=== PATIENT | female | born 1930 | race Caucasian/White ===

== ENCOUNTER 2017-11-29 09:54 | Inpatient (IN) | payer MEDICARE, BC, OTHER ==
[2017-11-29] MEDS ORDERED: Acetaminophen 500 MG TAB ONE (10:27)
[2017-11-29 10:33] LABS: #Eosinphils 0.1 thou/uL (0.0-0.7); #Lymphocytes 0.7 thou/uL (1.20-3.40); #Monocytes 0.4 thou/uL (0.11-0.59); #Neutrophils 12.7 thou/uL (1.40-6.50); %Basophils 0.3 % (0.0-1.0); %Eosinophils 0.9 % (0.0-10.0); %Lymphocytes 4.9 % (21.0-51.0); %Monocytes 2.6 % (0.0-10.0); %Neutrophils 91.4 % (42.0-75.0); Mean Corpuscular HGB CONC 33.6 g/dL (32.0-36.0); Mean Corpuscular Hemoglobin 29.8 pg (27.0-31.0); Mean Corpuscular Volume 88.7 fl (81.0-99.0); Mean Platelet Volume 7.1 fL (7.4-10.4); Platelet Count 341 thou/uL (130-400); RBC Distribution Width 12.5 % (11.5-14.5); Red Blood Cell (RBC) Count 4.02 mill/uL (4.20-5.40); White Blood Cell (WBC) Count 13.9 thou/uL (4.8-10.8)
[2017-11-29 10:53] LABS: ALT (SGPT) 25 U/L (8-55); AST (SGOT) 35 U/L (5-34); Albumin 3.1 g/dL (3.4-4.8); Alkaline Phosphatase 183 U/L (40-150); Anion Gap 11 mmol/L (10-20); BUN (Urea Nitrogen) 31 mg/dL (9.8-20.1); Bilirubin, Total 0.6 mg/dL (0.2-1.2); Calc. Creatinine Clearance 0 mL/min (70-130); Carbon Dioxide 18 mmol/L (23-31); Chloride 108 mmol/L (98-107); Estimated GFR-MDRD 62; Glucose 97 mg/dL (83-110); Lipase 24 U/L (8-78); Potassium 3.8 mmol/L (3.5-5.1); Protein, Total 8.1 g/dL (6.0-8.3); Sodium 133 mmol/L (136-145)
[2017-11-29 10:58] LABS: CKMB 0.8 ng/mL (0-6.6); Troponin I Less than 0.010 ng/mL (< 0.028)
--- NOTE | 2017-11-29 11:11 | RAD ---
SINGLE VIEW OF THE CHEST: COMPARISON: 06/03/17. HISTORY: Fever with nausea, vomiting, and sepsis. FINDINGS: A single view of the chest shows a cardiomediastinal silhouette which is upper limits of normal in si ze. There are multifocal infiltrates in the lungs which represent multifocal pneumonia. No pleural effusion is seen. IMPRESSION: Multifocal pneumonia. POS: [facility]
[2017-11-29] MEDS: Sodium Chloride 0.45% 1,000 ML IV SCH (13:17)
[2017-11-29 13:20] LABS: Troponin I Less than 0.010 ng/mL (< 0.028)
--- NOTE | 2017-11-29 13:24 | CON ---
DATE OF CONSULTATION: 11/29/2017 HISTORY: This is an 87-year-old female well known to us who called the office this morning stating s he was nauseated, vomiting since last night. She took some tramadol last night before going to bed. She then had a fever up to 103 with chills and sweats. Sputum was relatively clear. Chest x-ray sh ows an impressive right upper lung pneumonia. She has otherwise got chronic scarring in both lungs, a little bit more pronounced in the left base. The patient is a lifelong nonsmoker. Denies any difficulty breathing, chest pain. PAST HISTORY: Previous history is well outlined extensively in the previous medical records. Pertinent for past medical history of Sjogren syndrome, history of hypothyroidism, history of unknown autoimmune disease, possibly lupus, peptic ulcer disease, gastric polyp. ALLERGIES: Multiple medications including MORPHINE, SULFA, and PENICILLIN. CODEINE, HYDROCODONE. PAST SURGICAL HISTORY: None recently. TOBACCO: None. ALCOHOL: None. REVIEW OF SYSTEMS: Otherwise, 10-point negative. PHYSICAL EXAMINATION: VITAL SIGNS: Sats are 90%. Pulse is 80, blood pressure 110/80, respiration rate 18. CHEST: Surprisingly minimal crackles, without any wheezing. CARDIAC: Normal S1, S2, no gallops. ABDOMEN: Soft. NEURO: She is awake, alert and responsive. EXTREMITIES: Appears to be dry. LABORATORY: Her sodium is 133. Electrolytes are normal. BUN is 31. X-ray showed right upper lobe pneumonia. Albumin is 3.1. White count 13,000, H&H 12 and 36. Segs 9 4. IMPRESSION: 1. Right upper lobe pneumonia, recurrent, possibly aspiration. 2. Baseline underlying chronic fibrosis, interstitial lung disease. 3. History of unknown autoimmune disease, possibly lupus. 4. Sjogren syndrome. 5. Osteoporosis. PLAN: Continue home medication, particularly the Synthroid, aspirin. Otherwise, broad-spectrum ant ibiotics, Levaquin, Maxipime. Await sputum cultures. Hydration. Hopefully, she can be switched ove r to oral antibiotics in the next 24-48 hours. I will follow. Consultation note, 70 minutes of which 50% spent in direct patient care.
[2017-11-29] MEDS: Cefepime 1 GM, Admixture Fee 1 EACH in Sterile Water 10 ML SLOW IVP SCH (14:11)
[2017-11-29 14:21] LABS: Lactic Acid 3.1 mmol/L (0.5-2.2)
[2017-11-29] MEDS ORDERED: Prevnar 13-Val Conj/PF 0.5 ML SYRINGE IM ONE (15:30)
[2017-11-29] MEDS ORDERED: Ondansetron HCl/PF 4 MG/2 ML Vial IVP PRN (15:34)
[2017-11-29] MEDS ORDERED: Guaifenesin DM 100-10/5 ML UDCUP PO PRN (15:34)
--- NOTE | 2017-11-29 18:23 | HP ---
REASON FOR ADMISSION: Sepsis and pneumonia. HISTORY OF PRESENT ILLNESS: The patient gives history of waking up around 7:30 with dry coughing spells. She was also feeling cold, had chills and fever. checked her temperature, it was 103. She threw up one time and was continuously retching. Finally, they called Dr. Palacios's office and was instructed to come to the emergency room. The patient also mentions that she has had a history of esophageal hernia/stricture, hiatal hernia and Sjogren syndrome and she usually needs to be continuously drinking water while eating solid food. No complaints of chest pain, palpitation, PND or orthopnea. She normally ambulates inside the house and recently has had torn muscles in her hips and has been using a cane to ambulate. PAST MEDICAL AND SURGICAL HISTORY: History of Sjogren syndrome, history of hiatal hernia, esophageal hernia/stricture, peptic ulcer disease, hypothyroidism , mitral valve prolapse, hysterectomy, oophorectomy, breast biopsy x2, appendectomy, cataract surgery, recent torn piriformis muscle on the right hip in October per patient. She has also torn another muscle in the left hip after that and has been using a cane to ambulate. CURRENT MEDICATIONS: Evista 60 mg daily, Synthroid 100 mcg daily, aspirin 81 mg daily, Protonix 40 mg daily, Zantac 150 mg daily. ALLERGIES: Patient is allergic to multiple medications including TYLENOL, CODEINE, NEXIUM, HYDROCODONE, INDOMETHACIN, IODINE, KETOROLAC, LACTATE, MORPHINE , MACRODANTIN, PENICILLIN, PHENAZOPYRIDINE, PROPOXYPHENE, SULFA, TETRACYCLINE, VERAPAMIL. PERSONAL HISTORY: Does not abuse alcohol or drugs. No history of smoking. She lives with her and has five children. FAMILY HISTORY: Mom in her 90s. She had dementia. Father in his 50s , he was electrocuted and had a bad heart per patient. REVIEW OF SYSTEMS: The following complete review of systems was negative, unless otherwise mentioned in the HPI or below: Constitutional: Weight loss or gain, ability to conduct usual activities. Skin: Rash, itching. Eyes: Double vision, pain. ENT/Mouth: Nose bleeding, neck stiffness, pain, tenderness. Cardiovascular: Palpitations, dyspnea on exertion, orthopnea. Respiratory: Shortness of breath, wheezing, cough, hemoptysis, fever or night sweats. Gastrointestinal: Poor appetite, abdominal pain, heartburn, nausea, vomiting, constipation, or diarrhea. Genitourinary: Urgency, frequency, dysuria, nocturia. Musculoskeletal: Pain, swelling. Neurologic/Psychiatric: Anxiety, depression. Allergy/Immunologic: Skin rash, bleeding tendency. PHYSICAL EXAMINATION: GENERAL: The patient is an 87-year-old female who is currently not in any acute distress. VITAL SIGNS: Blood pressure 87/48 on arrival, had 2 liters of bolus done in the ER, pulse 108 per minute, respiratory rate 20 per minute, temperature 102.7 degrees Fahrenheit on arrival 96% on room air saturations. NECK: Supple, no elevated JVD. HEENT: Extraocular muscles intact. Pupils reacting to light. Oral cavity mucous membranes are dry. No exudates or congestion. CARDIOVASCULAR: S1, S2 heard. Regular rhythm. RESPIRATORY: Air entry 1+ bilateral, rales plus bilateral. ABDOMEN: Soft, bowel sounds heard. No tenderness, rigidity or guarding. EXTREMITIES: No peripheral edema or calf tenderness. VASCULAR SYSTEM: Peripheral pulses 1+ bilateral, no ischemic ulcerations or gangrene. CENTRAL NERVOUS SYSTEM: No gross focal deficits seen. Patient is alert, awake , and fairly oriented. PSYCHIATRIC: The patient's mood is euthymic. No hallucinations or delusions. LABORATORY AND X-RAY FINDINGS: Chest x-ray done shows multifocal pneumonia. White count of 13, H and H 12 and 35, platelet count 341 with 91% neutrophils, MCV is 88. Sodium 133, serum bicarbonate 18, BUN 31, creatinine 0.8, glucose is 97. Lactic acid 2.4, AST 35, alkaline phosphatase 183. Troponin x2 negative. Albumin is 3.1. EKG done shows sinus tachycardia at 102 beats per minute. There is Q-wave seen in V1 and V2. There is also low voltage. CLINICAL IMPRESSION AND PLAN: The patient will be admitted to telemetry for sepsis, pneumonia with likely aspiration. The patient has known history of hiatal hernia with Sjogren syndrome and has esophageal motility issues. She sees Dr. Do for the same. She has trouble eating solid food and has to be continuously drinking liquids when she eats. She has been placed on Levaquin and cefepime by Dr. Palacios and we will continue the same. She will also be on DuoNebs q.6 hourly. She will be on normal saline 1/2 NS at 75 mL per hour. We will continue her on aspirin, Synthroid, Evista as before. Patient also is on steroids per Dr. Palacios. We will continue to closely monitor her on telemetry and likely will be transfer to medical floor if she remains stable. CODE STATUS: FULL. This was discussed with the patient. YOBANY
[2017-11-29] MEDS ORDERED: Cefepime 1 GM in Sodium Chloride 0.9% 100 ML IVPB SCH (21:00)
[2017-11-29] MEDS: Docusate 100 MG CAP PO SCH (21:31)
[2017-11-29] MEDS: Famotidine 20 MG TAB PO SCH (23:28)
[2017-11-30] MEDS: Cefepime 1 GM, Admixture Fee 1 EACH in Sterile Water 10 ML SLOW IVP SCH ×2 (02:16→15:00)
--- NOTE | 2017-11-30 05:41 | PRG ---
DATE OF SERVICE: 11/30/2017 This morning she is awake, responsive. She says she is feeling better, but still nauseated yesterday . The question whether it was the tramadol. She is not coughing any sputum. PHYSICAL EXAMINATION: VITAL SIGNS: Sats are 95% on 2 liters, temperature 98, blood pressure is 98/54. CHEST: Chest reveals decreased breath sounds, no wheezing. CARDIAC: Normal S1, S2, no gallops. ABDOMEN: Soft, no masses. IMPRESSION: 1. Recurrent bilateral bronchopneumonia, slightly more pronounced in the right lung. 2. Baseline underlying Sjogren's disease with end-stage lung disease. PLAN: Continue steroids, neb treatments, antibiotics. Probably deescalate antibiotics in the next 2 4-48 hours.
[2017-11-30 05:47] LABS: Band 38 % (5-11); Hemoglobin 10.1 g/dL (12.0-16.0); Lymphocytes 5 % (21-51); MDiff Complete? YES; Mean Corpuscular HGB CONC 32.8 g/dL (32.0-36.0); Mean Corpuscular Hemoglobin 29.4 pg (27.0-31.0); Mean Corpuscular Volume 89.7 fl (81.0-99.0); Mean Platelet Volume 7.2 fL (7.4-10.4); Metamyelocyte 1 % (0-0); Neutrophil 56 % (42-75); PLT Morphology Comment Appears Adequate; Platelet Count 277 thou/uL (130-400); RBC Distribution Width 12.6 % (11.5-14.5); Red Blood Cell (RBC) Count 3.44 mill/uL (4.20-5.40); White Blood Cell (WBC) Count 29.3 thou/uL (4.8-10.8)
[2017-11-30] MEDS: Sodium Chloride 0.45% 1,000 ML IV SCH ×3 (05:48→23:46)
[2017-11-30 05:53] LABS: Anion Gap 13 mmol/L (10-20); BUN (Urea Nitrogen) 28 mg/dL (9.8-20.1); Calc. Creatinine Clearance 34 mL/min (70-130); Calcium 8.3 mg/dL (7.8-10.44); Carbon Dioxide 15 mmol/L (23-31); Chloride 108 mmol/L (98-107); Estimated GFR-MDRD 59; Glucose 165 mg/dL (83-110); Potassium 3.8 mmol/L (3.5-5.1); Sodium 132 mmol/L (136-145)
[2017-11-30] MEDS ORDERED: Levothyroxine Sodium 112 MCG TAB PO SCH (06:00)
[2017-11-30] MEDS: Enoxaparin Sodium 30 MG/0.3 ML SYRINGE SC SCH (08:29)
[2017-11-30] MEDS: Docusate 100 MG CAP PO SCH ×2 (08:29→19:57)
[2017-11-30] MEDS ORDERED: Levothyroxine Sodium 100 MCG TAB PO SCH (09:00)
--- NOTE | 2017-11-30 10:46 | PDOC.PN ---
- Subjective Encounter Start Date: 11/30/17 Encounter Start Time: 08:50 Subjective: breathing better, no chest pain -: no fever - Objective Resuscitation Status: Resuscitation Status FULL:Full Resuscitation MAR Reviewed: Yes Vital Signs & Weight: Vital Signs (12 hours) Temp Pulse Resp BP Pulse Ox 11/30/17 08:00 98.5 F 109 H 16 11/30/17 07:19 81 16 97 11/30/17 04:00 98.1 F 98 18 98/54 L 94 L 11/30/17 00:35 78 16 11/30/17 00:00 97.8 F 73 18 103/57 L 93 L Weight Admit Weight 106 lb Weight 105 lb I&O: 11/29/17 11/30/17 12/01/17 06:59 06:59 06:59 Intake Total 1965 Output Total 1800 Balance 165 Result Diagrams: 11/30/17 04:36 11/30/17 04:36 Phys Exam - Physical Examination HEENT: PERRLA, moist MMs Neck: no JVD, supple Respiratory: no wheezing, no rales rhonchi+ Cardiovascular: RRR, no significant murmur Gastrointestinal: soft, non-tender, positive bowel sounds Musculoskeletal: no edema, pulses present Neurological: non-focal, moves all 4 limbs Psychiatric: normal affect, A&O x 3 Dx/Plan (1) Sepsis Code(s): A41.9 - SEPSIS, UNSPECIFIED ORGANISM Status: Acute Qualifiers: Sepsis type: sepsis due to unspecified organism Qualified Code(s): A41.9 - Sepsis, unspecified organism (2) PNA (pneumonia) Code(s): J18.9 - PNEUMONIA, UNSPECIFIED ORGANISM Status: Acute Qualifiers: Pneumonia type: due to unspecified organism Laterality: bilateral (3) HTN (hypertension) Code(s): I10 - ESSENTIAL (PRIMARY) HYPERTENSION Status: Chronic Qualifiers: Hypertension type: essential hypertension Qualified Code(s): I10 - Essential (primary) hypertension (4) H/O hiatal hernia Code(s): Z87.19 - PERSONAL HISTORY OF OTHER DISEASES OF THE DIGESTIVE SYSTEM Status: Chronic (5) Hypothyroidism Code(s): E03.9 - HYPOTHYROIDISM, UNSPECIFIED Status: Chronic Qualifiers: Hypothyroidism type: unspecified Qualified Code(s): E03.9 - Hypothyroidism , unspecified - Plan has 39% bands on cbc, clinically appears stable -: is on levaquin and cefepime -: iv steroids and nebs -: gentle iv hydration with 1/2 ns -: await full culture results, prelim blood is -ve * . Review of Systems - Medications/Allergies Allergies/Adverse Reactions: Allergies Allergy/AdvReac Type Severity Reaction Status Date / Time acetaminophen [From Vicodin] Allergy Verified 11/30/17 08:25 amoxicillin [From Larotid] Allergy Verified 11/30/17 08:25 aspirin [From Percodan] Allergy Verified 11/30/17 08:25 codeine Allergy Verified 01/20/15 13:15 esomeprazole [From Nexium] Allergy Verified 11/30/17 08:25 esomeprazole magnesium Allergy Verified 01/20/15 13:15 [From Nexium] hydrocodone Allergy Verified 01/20/15 13:15 hydrocodone bitartrate Allergy Verified 01/20/15 13:15 [From Vicodin] ibuprofen Allergy Verified 11/30/17 08:25 indomethacin [From Indocin] Allergy Verified 08/17/15 14:46 indomethacin sodium Allergy Verified 08/17/15 14:46 [From Indocin] iodine Allergy Verified 11/29/17 15:13 ketorolac [From Toradol] Allergy Verified 11/29/17 15:13 lactase [From Dairy Aid] Allergy Verified 11/29/17 14:11 lactose Allergy Verified 11/29/17 14:11 meclofenamate sodium Allergy Verified 08/17/15 14:46 [From Meclomen] morphine Allergy Verified 01/20/15 13:15 naproxen Allergy Verified 11/30/17 08:25 nitrofurantoin Allergy Verified 11/29/17 15:13 [From Macrodantin] oxycodone [From Percodan] Allergy Verified 11/30/17 08:25 Penicillins Allergy Verified 08/15/15 14:50 phenazopyridine Allergy Verified 11/29/17 15:13 [From Pyridium] povidone-iodine Allergy Verified 11/30/17 08:25 [From Betadine] propoxyphene [From Darvon] Allergy Verified 11/30/17 08:25 propoxyphene HCl Allergy Verified 01/20/15 13:15 [From Darvon] propranolol [From Inderal LA] Allergy Verified 11/30/17 08:25 soap [From Betadine] Allergy Verified 11/30/17 08:25 Sulfa (Sulfonamide Allergy Verified 01/20/15 13:15 Antibiotics) sulfamethoxazole Allergy Verified 11/29/17 15:13 [From Septra] tetracycline Allergy Verified 11/29/17 15:13 tramadol Allergy Verified 11/30/17 08:25 trimethoprim [From Septra] Allergy Verified 11/29/17 15:13 verapamil Allergy Verified 08/17/15 14:46 Medications: Current Medications Albuterol/Ipratropium (Duoneb) 3 ml NEB [id number] [facility] Last Admin: 11/30/17 07:19 Dose: 3 ml Aspirin (Aspirin Chewable) 81 mg PO DAILY [facility] Last Admin: 11/30/17 08:29 Dose: 81 mg Docusate Sodium (Colace) 100 mg PO BID [facility] Last Admin: 11/30/17 08:29 Dose: 100 mg Enoxaparin Sodium (Lovenox) 30 mg SC 0900 [facility] Last Admin: 11/30/17 08:29 Dose: 30 mg Famotidine (Pepcid) 20 mg PO DAILY [facility] Last Admin: 11/29/17 23:28 Dose: 20 mg Guaifenesin/Dextromethorphan (Robitussin Dm) 15 ml PO Q4H PRN PRN Reason: Cough Levofloxacin 750 mg/ Device 150 mls @ 100 mls/hr IVPB Q24HR [facility] Sodium Chloride (1/2 Normal Saline) 1,000 mls @ 75 mls/hr IV .[id number] [facility] Last Admin: 11/30/17 05:48 Dose: 1,000 mls Cefepime HCl 1 gm/Miscellaneous Medication 1 each/ Sterile Water 10 mls @ 120 mls/hr SLOW IVP 0200,1400 [facility] Last Admin: 11/30/17 02:16 Dose: 10 mls Levothyroxine Sodium (Synthroid) 100 mcg PO DAILY [facility] Last Admin: 11/30/17 08:29 Dose: 100 mcg Methylprednisolone Sodium Succinate (Solu-Medrol) 40 mg IVP Q6HR [facility] Last Admin: 11/30/17 05:55 Dose: 40 mg Ondansetron HCl (Zofran) 4 mg IVP Q6H PRN PRN Reason: Nausea/Vomiting Last Admin: 11/29/17 21:31 Dose: 4 mg Raloxifene HCl (Evista) 60 mg PO DAILY [facility] Last Admin: 11/30/17 08:29 Dose: 60 mg
[2017-11-30] MEDS ORDERED: Docusate 100 MG CAP PO SCH (16:15)
[2017-11-30] MEDS: Polyethylene Glycol 3350 17 GM Packet PO SCH (16:26)
[2017-12-01] MEDS: Cefepime 1 GM, Admixture Fee 1 EACH in Sterile Water 10 ML SLOW IVP SCH ×2 (01:54→16:59)
[2017-12-01 05:18] LABS: Anion Gap 10 mmol/L (10-20); BUN (Urea Nitrogen) 30 mg/dL (9.8-20.1); Calc. Creatinine Clearance 36 mL/min (70-130); Carbon Dioxide 18 mmol/L (23-31); Chloride 110 mmol/L (98-107); Estimated GFR-MDRD 63; Glucose 135 mg/dL (83-110); Potassium 3.9 mmol/L (3.5-5.1); Sodium 134 mmol/L (136-145)
[2017-12-01] MEDS: Levothyroxine Sodium 100 MCG TAB PO SCH (05:38)
[2017-12-01 05:42] LABS: Hemoglobin 10.5 g/dL (12.0-16.0); Mean Corpuscular HGB CONC 33.5 g/dL (32.0-36.0); Mean Corpuscular Hemoglobin 29.6 pg (27.0-31.0); Mean Corpuscular Volume 88.3 fl (81.0-99.0); Mean Platelet Volume 7.3 fL (7.4-10.4); Platelet Count 320 thou/uL (130-400); RBC Distribution Width 12.9 % (11.5-14.5); Red Blood Cell (RBC) Count 3.55 mill/uL (4.20-5.40); White Blood Cell (WBC) Count 28.7 thou/uL (4.8-10.8)
[2017-12-01 05:43] LABS: Band 14 % (5-11); Lymphocytes 2 % (21-51); MDiff Complete? YES; Monocytes 3 % (0-10); Neutrophil 81 % (42-75)
[2017-12-01] MEDS: Saccharomyces boulardii 250 MG CAP PO SCH (08:50)
[2017-12-01] MEDS: Famotidine 20 MG TAB PO SCH (08:50)
[2017-12-01] MEDS: Docusate 100 MG CAP PO SCH ×2 (08:51→20:15)
[2017-12-01] MEDS: Polyethylene Glycol 3350 17 GM Packet PO SCH ×2 (08:51→14:24)
[2017-12-01] MEDS: Enoxaparin Sodium 30 MG/0.3 ML SYRINGE SC SCH (08:52)
--- NOTE | 2017-12-01 11:03 | PDOC.PN ---
- Subjective Encounter Start Date: 12/01/17 Encounter Start Time: 07:30 Subjective: feels better -: still has trouble eating solids -: no sob - Objective Resuscitation Status: Resuscitation Status FULL:Full Resuscitation MAR Reviewed: Yes Vital Signs & Weight: Vital Signs (12 hours) Temp Pulse Resp BP Pulse Ox 12/01/17 08:01 80 14 12/01/17 08:00 98.5 F 80 14 12/01/17 07:05 98.5 F 93 18 110/63 91 L 11/30/17 23:16 16 Weight Admit Weight 106 lb Weight 106 lb 1.6 oz I&O: 11/30/17 12/01/17 12/02/17 06:59 06:59 06:59 Intake Total 1965 Output Total 1800 Balance 165 Result Diagrams: 12/01/17 03:51 12/01/17 03:51 Phys Exam - Physical Examination HEENT: PERRLA, moist MMs Neck: no JVD, supple Respiratory: no wheezing, no rales Cardiovascular: RRR, no significant murmur Gastrointestinal: soft, non-tender, positive bowel sounds Musculoskeletal: no edema, pulses present Neurological: non-focal, moves all 4 limbs Dx/Plan (1) Sepsis Code(s): A41.9 - SEPSIS, UNSPECIFIED ORGANISM Status: Acute Qualifiers: Sepsis type: sepsis due to unspecified organism Qualified Code(s): A41.9 - Sepsis, unspecified organism (2) PNA (pneumonia) Code(s): J18.9 - PNEUMONIA, UNSPECIFIED ORGANISM Status: Acute Qualifiers: Pneumonia type: due to unspecified organism Laterality: bilateral (3) HTN (hypertension) Code(s): I10 - ESSENTIAL (PRIMARY) HYPERTENSION Status: Chronic Qualifiers: Hypertension type: essential hypertension Qualified Code(s): I10 - Essential (primary) hypertension (4) H/O hiatal hernia Code(s): Z87.19 - PERSONAL HISTORY OF OTHER DISEASES OF THE DIGESTIVE SYSTEM Status: Chronic (5) Hypothyroidism Code(s): E03.9 - HYPOTHYROIDISM, UNSPECIFIED Status: Chronic Qualifiers: Hypothyroidism type: unspecified Qualified Code(s): E03.9 - Hypothyroidism , unspecified (6) History of esophageal stricture Code(s): Z87.19 - PERSONAL HISTORY OF OTHER DISEASES OF THE DIGESTIVE SYSTEM Status: Chronic Comment: last dilatation was 1 yr back - Plan is on levaquin, cefepime, solumedrol iv q6h -: 1/2 ns @75mls/hr -: GI consultation, likely may need dilatation with trouble swallowing solid f -: -ood, mobilize as tolerated -: nebs prn, bandemia is slowly receding (14%) * . Review of Systems - Medications/Allergies Allergies/Adverse Reactions: Allergies Allergy/AdvReac Type Severity Reaction Status Date / Time acetaminophen [From Vicodin] Allergy Verified 11/30/17 08:25 amoxicillin [From Larotid] Allergy Verified 11/30/17 08:25 aspirin [From Percodan] Allergy Verified 11/30/17 08:25 codeine Allergy Verified 01/20/15 13:15 esomeprazole [From Nexium] Allergy Verified 11/30/17 08:25 esomeprazole magnesium Allergy Verified 01/20/15 13:15 [From Nexium] hydrocodone Allergy Verified 01/20/15 13:15 hydrocodone bitartrate Allergy Verified 01/20/15 13:15 [From Vicodin] ibuprofen Allergy Verified 11/30/17 08:25 indomethacin [From Indocin] Allergy Verified 08/17/15 14:46 indomethacin sodium Allergy Verified 08/17/15 14:46 [From Indocin] iodine Allergy Verified 11/29/17 15:13 ketorolac [From Toradol] Allergy Verified 11/29/17 15:13 lactase [From Dairy Aid] Allergy Verified 11/29/17 14:11 lactose Allergy Verified 11/29/17 14:11 meclofenamate sodium Allergy Verified 08/17/15 14:46 [From Meclomen] morphine Allergy Verified 01/20/15 13:15 naproxen Allergy Verified 11/30/17 08:25 nitrofurantoin Allergy Verified 11/29/17 15:13 [From Macrodantin] oxycodone [From Percodan] Allergy Verified 11/30/17 08:25 Penicillins Allergy Verified 08/15/15 14:50 phenazopyridine Allergy Verified 11/29/17 15:13 [From Pyridium] povidone-iodine Allergy Verified 11/30/17 08:25 [From Betadine] propoxyphene [From Darvon] Allergy Verified 11/30/17 08:25 propoxyphene HCl Allergy Verified 01/20/15 13:15 [From Darvon] propranolol [From Inderal LA] Allergy Verified 11/30/17 08:25 soap [From Betadine] Allergy Verified 11/30/17 08:25 Sulfa (Sulfonamide Allergy Verified 01/20/15 13:15 Antibiotics) sulfamethoxazole Allergy Verified 11/29/17 15:13 [From Septra] tetracycline Allergy Verified 11/29/17 15:13 tramadol Allergy Verified 11/30/17 08:25 trimethoprim [From Septra] Allergy Verified 11/29/17 15:13 verapamil Allergy Verified 08/17/15 14:46 Medications: Current Medications Albuterol/Ipratropium (Duoneb) 3 ml NEB [id number] [facility] Last Admin: 12/01/17 08:01 Dose: 3 ml Aspirin (Aspirin Chewable) 81 mg PO DAILY [facility] Last Admin: 12/01/17 08:49 Dose: 81 mg Docusate Sodium (Colace) 100 mg PO BID [facility] Last Admin: 12/01/17 08:51 Dose: 100 mg Enoxaparin Sodium (Lovenox) 30 mg SC 0900 [facility] Last Admin: 12/01/17 08:52 Dose: Not Given Famotidine (Pepcid) 20 mg PO DAILY [facility] Last Admin: 12/01/17 08:50 Dose: 20 mg Guaifenesin/Dextromethorphan (Robitussin Dm) 15 ml PO Q4H PRN PRN Reason: Cough Levofloxacin 750 mg/ Device 150 mls @ 100 mls/hr IVPB Q24HR [facility] Last Admin: 12/01/17 08:51 Dose: 150 mls Sodium Chloride (1/2 Normal Saline) 1,000 mls @ 75 mls/hr IV .[id number] [facility] Last Admin: 11/30/17 23:46 Dose: 1,000 mls Cefepime HCl 1 gm/Miscellaneous Medication 1 each/ Sterile Water 10 mls @ 120 mls/hr SLOW IVP 0200,1400 [facility] Last Admin: 12/01/17 01:54 Dose: 10 mls Levothyroxine Sodium (Synthroid) 100 mcg PO 0600 [facility] Last Admin: 12/01/17 05:38 Dose: 100 mcg Methylprednisolone Sodium Succinate (Solu-Medrol) 40 mg IVP Q6HR [facility] Last Admin: 12/01/17 05:38 Dose: 40 mg Ondansetron HCl (Zofran) 4 mg IVP Q6H PRN PRN Reason: Nausea/Vomiting Last Admin: 11/29/17 21:31 Dose: 4 mg Polyethylene Glycol (Miralax) 17 gm PO DAILY [facility] Last Admin: 12/01/17 08:51 Dose: 17 gm Polyethylene Glycol (Miralax) 17 gm PO NOW [facility] Stop: 12/01/17 18:15 Last Admin: 11/30/17 16:26 Dose: 17 gm Raloxifene HCl (Evista) 60 mg PO DAILY [facility] Last Admin: 12/01/17 08:50 Dose: 60 mg Saccharomyces Boulardii (Florastor) 250 mg PO DAILY [facility] Last Admin: 12/01/17 08:50 Dose: 250 mg
[2017-12-01] MEDS ORDERED: RANITIDINE 150 MG PO SCH (13:15)
--- NOTE | 2017-12-01 14:07 | CON ---
DATE OF CONSULTATION: 12/01/2017 CHIEF COMPLAINT: Trouble swallowing. HISTORY OF PRESENT ILLNESS: Ms. Bonds is an 87-year-old woman who was admitted with pneumonia. She benson s been evaluated by Dr. Palacios with Pulmonology as well. She reports a 2 month progressive history of solid food dysphagia primarily to meats at the cervical esophageal level. She has to chew the food v serene slowly and chews soft foods. She was admitted with pneumonia and concern has been raised for pos sible aspiration related to her dysphagia. She has had no nausea, vomiting, diarrhea, constipation o r abdominal pain. No blood in the stool. Her weight has been stable. She underwent esophageal dila tion in 2014 with a 54-[place] Aranda by Dr. Do. She did have improved swallowing after that up un til a couple months ago. PAST MEDICAL HISTORY: Sjogren syndrome, hiatal hernia and esophageal stricture, peptic ulcer disease , hypothyroidism, mitral valve prolapse. PAST SURGICAL HISTORY: Oophorectomy, breast biopsy, hysterectomy, appendectomy, cataract surgery. FAMILY HISTORY: Negative for GI malignancy. SOCIAL HISTORY: No alcohol, tobacco or drugs. ALLERGIES: NEXIUM. MEDICATIONS: Prior to admission, Evista, Synthroid, aspirin, Protonix, Zantac. REVIEW OF SYSTEMS: Negative x10 systems reviewed except as stated in the history of present illness. PHYSICAL EXAMINATION: VITAL SIGNS: Temperature 98.5, pulse 90, blood pressure 110/63, oxygen saturation is 91% on room air . GENERAL: She is in no acute distress, alert and oriented x3. HEENT: Eyes have no scleral icterus. Oropharynx is clear, without lesions. NECK: No cervical or supraclavicular lymphadenopathy. LUNGS: Clear to auscultation bilaterally. HEART: Regular rate and rhythm without murmur. ABDOMEN: Soft, nontender, nondistended. Bowel sounds are present. EXTREMITIES: No lower extremity edema. NEUROLOGIC: Cranial nerves are grossly intact. LABORATORY: White blood cell count 28.7, hemoglobin 10.5, platelets 320. Creatinine 0.85, bilirubin 0.6, AST 35, ALT 25, alkaline phosphatase 183, albumin 3.1. X-ray of the chest showed multifocal in filtrates in the lungs bilaterally. IMPRESSION: 1. Solid food dysphagia, gradually worsening over the last couple of months suggestive of esophageal stricture. She had symptomatic improvement in 2014 when she had esophageal dilation with a 54-[place] Aranda by Dr. Do. EGD is recommended to repeat dilation; however, the patient states that she i s anxious about doing this procedure and she is worried about risks with her lung problems and wishes to delay that for now. 2. Pneumonia. She has multifocal pneumonia and a question of aspiration was raised. Her symptoms s ound more like esophageal stricture; however, she could have a Zenker's diverticulum or she could hav e oropharyngeal dysphagia as well. A functional study at this point with barium swallow and modified barium swallow with speech pathology would be helpful. 3. Anemia. She has a chronic anemia at baseline for at least the last couple years. I will check i ashlee studies in the meantime. RECOMMENDATIONS: 1. Barium esophagogram to evaluate for esophageal stricture or Zenker's diverticulum. 2. Modified barium swallow at the same time with speech pathology to rule out evidence of aspiration . 3. EGD has been recommended; however, the patient states that she is anxious about this following th rough with this procedure due to her pneumonia. She will consider scheduling this at a later date, b ut she states that she wants to get better and do this as an outpatient. 4. We will check iron studies. 5. Restart pantoprazole daily.
--- NOTE | 2017-12-01 15:46 | RAD ---
SINGLE CONTRAST ESOPHAGRAM 12/01/17 HISTORY: Dysphagia and possible aspiration. Evaluate for esophageal stricture. EXPOSURE: 0.7 minutes of fluoroscopic time. 5.51 mGy. FINDINGS: A single contrast barium swallow was performed. Esophageal motility is slightly delayed secondary to presbyesophagus. There is a small pulsion diverticulum in the distal esophagus near the gastroesophag eal junction. No hiatal hernia is seen at this time. There is no evidence of esophageal stricture and the contrast passes easily into the stomach. IMPRESSION: 1. 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 POS: [facility]
--- NOTE | 2017-12-01 15:49 | RAD ---
MODIFIED BARIUM SWALLOW WITH SPEECH THERAPIST: 12/01/17 COMPARISON: None. HISTORY: 87-year-old female with pneumonia, dysphagia oropharyngeal phase and feeding difficulties. EXPOSURE: Fluoroscopic time - 2.5 minutes. Dose - 4.68 mGy. FINDINGS/IMPRESSION: A modified barium swallow was performed with the speech therapist. A single incidence of flash penetr ation was seen with thin liquids. No other aspiration or penetration events occurred during the exami nation. Please see dedicated speech therapy report for specific finding and recommendations. POS: [facility]
[2017-12-01] MEDS ORDERED: diphenhydrAMINE 50 MG/ML VIAL IVP SCH (17:45)
[2017-12-02] MEDS: Cefepime 1 GM, Admixture Fee 1 EACH in Sterile Water 10 ML SLOW IVP SCH (02:24)
[2017-12-02 04:52] LABS: Anion Gap 8 mmol/L (10-20); BUN (Urea Nitrogen) 29 mg/dL (9.8-20.1); Calc. Creatinine Clearance 37 mL/min (70-130); Calcium 8.7 mg/dL (7.8-10.44); Carbon Dioxide 19 mmol/L (23-31); Chloride 112 mmol/L (98-107); Estimated GFR-MDRD 65; Glucose 122 mg/dL (83-110); Iron 49 ug/dL (50-170); Iron Binding Capacity, Total 240 mcg/dL (265-497); Potassium 4.3 mmol/L (3.5-5.1); Sodium 135 mmol/L (136-145)
[2017-12-02 05:13] LABS: Hemoglobin 10.1 g/dL (12.0-16.0); Lymphocytes 3 % (21-51); MDiff Complete? YES; Mean Corpuscular HGB CONC 34.1 g/dL (32.0-36.0); Mean Platelet Volume 6.9 fL (7.4-10.4); Monocytes 7 % (0-10); Neutrophil 90 % (42-75); Platelet Count 335 thou/uL (130-400); RBC Distribution Width 12.9 % (11.5-14.5); Red Blood Cell (RBC) Count 3.37 mill/uL (4.20-5.40); White Blood Cell (WBC) Count 18.2 thou/uL (4.8-10.8)
[2017-12-02] MEDS: Sodium Chloride 0.45% 1,000 ML IV SCH ×3 (05:39→23:45)
[2017-12-02] MEDS: Levothyroxine Sodium 100 MCG TAB PO SCH (05:40)
[2017-12-02] MEDS ORDERED: RANITIDINE 150 MG PO SCH (08:00)
[2017-12-02] MEDS: Polyethylene Glycol 3350 17 GM Packet PO SCH (08:39)
[2017-12-02] MEDS: Saccharomyces boulardii 250 MG CAP PO SCH (08:39)
[2017-12-02] MEDS: Enoxaparin Sodium 30 MG/0.3 ML SYRINGE SC SCH (08:39)
[2017-12-02] MEDS: Docusate 100 MG CAP PO SCH ×2 (08:39→21:49)
[2017-12-02] MEDS: RANITIDINE 150 MG PO SCH ×2 (08:40→14:11)
[2017-12-02 10:09] VITALS: BMI 21.4
[2017-12-02] MEDS ORDERED: Cefdinir 300 MG CAP PO SCH (10:15)
[2017-12-02] MEDS ORDERED: predniSONE 20 MG TAB PO SCH (10:15)
--- NOTE | 2017-12-02 15:30 | PDOC.PN ---
- Subjective Encounter Start Date: 12/02/17 Encounter Start Time: 09:50 Subjective: breathing better -: no nausea or chest pain - Objective Resuscitation Status: Resuscitation Status FULL:Full Resuscitation MAR Reviewed: Yes Vital Signs & Weight: Vital Signs (12 hours) Temp Pulse Resp BP Pulse Ox 12/02/17 14:00 90 14 12/02/17 08:00 97.6 F 111 H 16 95 12/02/17 07:08 97.6 F 111 H 16 109/63 93 L 12/02/17 06:43 90 14 Weight Admit Weight 106 lb Weight 106 lb 1.6 oz Result Diagrams: 12/02/17 03:58 12/02/17 03:58 Phys Exam - Physical Examination HEENT: PERRLA, moist MMs Neck: no JVD, supple Respiratory: no wheezing, no rales rhonchi+ Cardiovascular: RRR, no significant murmur Gastrointestinal: soft, non-tender, positive bowel sounds Musculoskeletal: no edema, pulses present Neurological: non-focal, moves all 4 limbs Psychiatric: normal affect, A&O x 3 Dx/Plan (1) Sepsis Code(s): A41.9 - SEPSIS, UNSPECIFIED ORGANISM Status: Acute Qualifiers: Sepsis type: sepsis due to unspecified organism Qualified Code(s): A41.9 - Sepsis, unspecified organism (2) PNA (pneumonia) Code(s): J18.9 - PNEUMONIA, UNSPECIFIED ORGANISM Status: Acute Qualifiers: Pneumonia type: due to unspecified organism Laterality: bilateral (3) HTN (hypertension) Code(s): I10 - ESSENTIAL (PRIMARY) HYPERTENSION Status: Chronic Qualifiers: Hypertension type: essential hypertension Qualified Code(s): I10 - Essential (primary) hypertension (4) H/O hiatal hernia Code(s): Z87.19 - PERSONAL HISTORY OF OTHER DISEASES OF THE DIGESTIVE SYSTEM Status: Chronic (5) Hypothyroidism Code(s): E03.9 - HYPOTHYROIDISM, UNSPECIFIED Status: Chronic Qualifiers: Hypothyroidism type: unspecified Qualified Code(s): E03.9 - Hypothyroidism , unspecified (6) History of esophageal stricture Code(s): Z87.19 - PERSONAL HISTORY OF OTHER DISEASES OF THE DIGESTIVE SYSTEM Status: Chronic Comment: last dilatation was 1 yr back - Plan barrium study results noted, is on cefepime and levaq -: steroid taper, will switch to omnicef in am -: likely dc plan in am if stable -: to f/u with GI as adv -: may dc iv fluids if tolerating oral diet * . Review of Systems - Medications/Allergies Allergies/Adverse Reactions: Allergies Allergy/AdvReac Type Severity Reaction Status Date / Time acetaminophen [From Vicodin] Allergy Verified 11/30/17 08:25 amoxicillin [From Larotid] Allergy Verified 11/30/17 08:25 aspirin [From Percodan] Allergy Verified 11/30/17 08:25 codeine Allergy Verified 01/20/15 13:15 esomeprazole [From Nexium] Allergy Verified 11/30/17 08:25 esomeprazole magnesium Allergy Verified 01/20/15 13:15 [From Nexium] famotidine [From Pepcid] Allergy Verified 12/02/17 14:22 hydrocodone Allergy Verified 01/20/15 13:15 hydrocodone bitartrate Allergy Verified 01/20/15 13:15 [From Vicodin] ibuprofen Allergy Verified 11/30/17 08:25 indomethacin [From Indocin] Allergy Verified 08/17/15 14:46 indomethacin sodium Allergy Verified 08/17/15 14:46 [From Indocin] iodine Allergy Verified 11/29/17 15:13 ketorolac [From Toradol] Allergy Verified 11/29/17 15:13 lactase [From Dairy Aid] Allergy Verified 11/29/17 14:11 lactose Allergy Verified 11/29/17 14:11 meclofenamate sodium Allergy Verified 08/17/15 14:46 [From Meclomen] morphine Allergy Verified 01/20/15 13:15 naproxen Allergy Verified 11/30/17 08:25 nitrofurantoin Allergy Verified 11/29/17 15:13 [From Macrodantin] oxycodone [From Percodan] Allergy Verified 11/30/17 08:25 Penicillins Allergy Verified 08/15/15 14:50 phenazopyridine Allergy Verified 11/29/17 15:13 [From Pyridium] povidone-iodine Allergy Verified 11/30/17 08:25 [From Betadine] propoxyphene [From Darvon] Allergy Verified 11/30/17 08:25 propoxyphene HCl Allergy Verified 01/20/15 13:15 [From Darvon] propranolol [From Inderal LA] Allergy Verified 11/30/17 08:25 soap [From Betadine] Allergy Verified 11/30/17 08:25 Sulfa (Sulfonamide Allergy Verified 01/20/15 13:15 Antibiotics) sulfamethoxazole Allergy Verified 11/29/17 15:13 [From Septra] tetracycline Allergy Verified 11/29/17 15:13 tramadol Allergy Verified 11/30/17 08:25 trimethoprim [From Septra] Allergy Verified 11/29/17 15:13 verapamil Allergy Verified 08/17/15 14:46 Medications: Current Medications Albuterol/Ipratropium (Duoneb) 3 ml NEB [id number] [facility] Last Admin: 12/02/17 14:00 Dose: 3 ml Aspirin (Aspirin Chewable) 81 mg PO DAILY [facility] Last Admin: 12/02/17 08:39 Dose: 81 mg Cefdinir (Omnicef) 300 mg PO BID [facility] Docusate Sodium (Colace) 100 mg PO BID [facility] Last Admin: 12/02/17 08:39 Dose: 100 mg Enoxaparin Sodium (Lovenox) 30 mg SC 0900 [facility] Last Admin: 12/02/17 08:39 Dose: 30 mg Guaifenesin/Dextromethorphan (Robitussin Dm) 15 ml PO Q4H PRN PRN Reason: Cough Sodium Chloride (1/2 Normal Saline) 1,000 mls @ 75 mls/hr IV .[id number] [facility] Last Admin: 12/02/17 10:35 Dose: Not Given Levothyroxine Sodium (Synthroid) 100 mcg PO 0600 [facility] Last Admin: 12/02/17 05:40 Dose: 100 mcg Ondansetron HCl (Zofran) 4 mg IVP Q6H PRN PRN Reason: Nausea/Vomiting Last Admin: 11/29/17 21:31 Dose: 4 mg Pantoprazole Sodium (Protonix) 40 mg PO DAILY [facility] Last Admin: 12/02/17 08:39 Dose: 40 mg Ranitidine 150mg Patient's Home Medication 1 each PO 0800,1200 [facility] Last Admin: 12/02/17 14:11 Dose: 1 each Polyethylene Glycol (Miralax) 17 gm PO DAILY [facility] Last Admin: 12/02/17 08:39 Dose: 17 gm Prednisone (Prednisone) 20 mg PO QAM-WM [facility] Raloxifene HCl (Evista) 60 mg PO DAILY [facility] Last Admin: 12/02/17 08:39 Dose: 60 mg Saccharomyces Boulardii (Florastor) 250 mg PO DAILY [facility] Last Admin: 12/02/17 08:39 Dose: 250 mg Sodium Chloride (Flush - Normal Saline) 10 ml IVF Q12HR [facility] Last Admin: 12/02/17 08:40 Dose: Not Given Sodium Chloride (Flush - Normal Saline) 10 ml IVF PRN PRN PRN Reason: Saline Flush
--- NOTE | 2017-12-02 18:26 | PRG ---
DATE OF SERVICE: 12/02/2017 SUBJECTIVE: Ms. Bonds states that she is swallowing better today after following instructions from the speech pathologist. She had barium studies yesterday that showed no focal stricture in the esophagu s and no obvious aspiration. OBJECTIVE: VITAL SIGNS: Temperature 97.3, pulse 68, blood pressure 120/68. GENERAL: She is in no acute distress, awake and alert. LUNGS: Clear to auscultation bilaterally. HEART: Regular rate and rhythm. ABDOMEN: Soft, nontender, nondistended, bowel sounds are present. EXTREMITIES: No lower extremity edema. IMPRESSION: 1. Dysphagia. Currently, she states that she is doing better after following recommendations from kirsten pineda speech pathologist after modified barium swallow. She did have an esophageal stricture dilated by Dr. Do in 2015. If her trouble swallowing worsens again, then she can return to GI clinic. An en doscopy can be performed for esophageal dilation. 2. Pneumonia, multifocal. Again, the modified barium swallow did not show obvious aspiration. RECOMMENDATIONS: 1. Speech pathologist had recommended mechanical soft texture solids. She is okay for thin liquids. 2. Follow up in GI clinic as needed. 3. Anticipated she will be discharged home in the morning. I will sign off for now. Please call if GI can be of assistance.
[2017-12-02] MEDS: Cefdinir 300 MG CAP PO SCH (21:49)
[2017-12-03 05:19] LABS: Anion Gap 8 mmol/L (10-20); BUN (Urea Nitrogen) 28 mg/dL (9.8-20.1); Calc. Creatinine Clearance 41 mL/min (70-130); Calcium 8.6 mg/dL (7.8-10.44); Carbon Dioxide 21 mmol/L (23-31); Chloride 112 mmol/L (98-107); Estimated GFR-MDRD 73; Glucose 82 mg/dL (83-110); Potassium 3.8 mmol/L (3.5-5.1); Sodium 137 mmol/L (136-145)
[2017-12-03 05:42] LABS: Band 4 % (5-11); Hemoglobin 9.8 g/dL (12.0-16.0); Lymphocytes 17 % (21-51); MDiff Complete? YES; Mean Corpuscular HGB CONC 33.9 g/dL (32.0-36.0); Mean Corpuscular Volume 88.5 fl (81.0-99.0); Monocytes 5 % (0-10); Neutrophil 74 % (42-75); Platelet Count 336 thou/uL (130-400); RBC Distribution Width 12.9 % (11.5-14.5); Red Blood Cell (RBC) Count 3.25 mill/uL (4.20-5.40); White Blood Cell (WBC) Count 15.9 thou/uL (4.8-10.8)
[2017-12-03] MEDS: Levothyroxine Sodium 100 MCG TAB PO SCH (05:45)
[2017-12-03] MEDS: Acetaminophen 325 MG TAB PO PRN ×3 (08:29→21:35)
[2017-12-03] MEDS: Lidocaine 5% Patch TD SCH (08:29)
[2017-12-03] MEDS: Polyethylene Glycol 3350 17 GM Packet PO SCH (08:33)
[2017-12-03] MEDS: Enoxaparin Sodium 30 MG/0.3 ML SYRINGE SC SCH (08:33)
[2017-12-03] MEDS: Cefdinir 300 MG CAP PO SCH ×2 (08:34→21:35)
[2017-12-03] MEDS: Saccharomyces boulardii 250 MG CAP PO SCH (08:34)
[2017-12-03] MEDS: Docusate 100 MG CAP PO SCH ×2 (08:35→21:35)
[2017-12-03] MEDS: RANITIDINE 150 MG PO SCH ×2 (08:35→12:06)
[2017-12-03] MEDS: predniSONE 20 MG TAB PO SCH (08:35)
--- NOTE | 2017-12-03 13:21 | PDOC.PN ---
- Subjective Encounter Start Date: 12/03/17 Encounter Start Time: 10:35 Subjective: c/o back pain and is in tears - Objective Resuscitation Status: Resuscitation Status FULL:Full Resuscitation MAR Reviewed: Yes Vital Signs & Weight: Vital Signs (12 hours) Temp Pulse Resp BP Pulse Ox 12/03/17 08:00 98.0 F 68 19 97 12/03/17 07:21 68 19 12/03/17 07:19 98.0 F 68 16 123/63 97 Weight Admit Weight 106 lb Weight 106 lb 1.6 oz I&O: 12/02/17 12/03/17 12/04/17 06:59 06:59 06:59 Intake Total 1300 Balance 1300 Result Diagrams: 12/03/17 04:13 12/03/17 04:13 Phys Exam - Physical Examination HEENT: PERRLA, moist MMs Neck: no JVD, supple Respiratory: no wheezing, no rales Cardiovascular: RRR, no significant murmur Gastrointestinal: soft, non-tender, positive bowel sounds Musculoskeletal: no edema, pulses present Neurological: non-focal, moves all 4 limbs Psychiatric: normal affect, A&O x 3 Dx/Plan (1) Sepsis Code(s): A41.9 - SEPSIS, UNSPECIFIED ORGANISM Status: Acute Qualifiers: Sepsis type: sepsis due to unspecified organism Qualified Code(s): A41.9 - Sepsis, unspecified organism Comment: resolving (2) PNA (pneumonia) Code(s): J18.9 - PNEUMONIA, UNSPECIFIED ORGANISM Status: Acute Qualifiers: Pneumonia type: due to unspecified organism Laterality: bilateral (3) HTN (hypertension) Code(s): I10 - ESSENTIAL (PRIMARY) HYPERTENSION Status: Chronic Qualifiers: Hypertension type: essential hypertension Qualified Code(s): I10 - Essential (primary) hypertension (4) H/O hiatal hernia Code(s): Z87.19 - PERSONAL HISTORY OF OTHER DISEASES OF THE DIGESTIVE SYSTEM Status: Chronic (5) Hypothyroidism Code(s): E03.9 - HYPOTHYROIDISM, UNSPECIFIED Status: Chronic Qualifiers: Hypothyroidism type: unspecified Qualified Code(s): E03.9 - Hypothyroidism , unspecified (6) History of esophageal stricture Code(s): Z87.19 - PERSONAL HISTORY OF OTHER DISEASES OF THE DIGESTIVE SYSTEM Status: Chronic Comment: last dilatation was 1 yr back - Plan is on mech soft diet and thickened liq -: lidocaine patch, has multiple allergies -: dc plan in am (she is not ready to go today with pain) -: on omnicef, asp and prednisone taper -: will likely need outpt onc referal to r/o MDS * . Review of Systems - Medications/Allergies Allergies/Adverse Reactions: Allergies Allergy/AdvReac Type Severity Reaction Status Date / Time acetaminophen [From Vicodin] Allergy Verified 11/30/17 08:25 amoxicillin [From Larotid] Allergy Verified 11/30/17 08:25 aspirin [From Percodan] Allergy Verified 11/30/17 08:25 codeine Allergy Verified 01/20/15 13:15 esomeprazole [From Nexium] Allergy Verified 11/30/17 08:25 esomeprazole magnesium Allergy Verified 01/20/15 13:15 [From Nexium] famotidine [From Pepcid] Allergy Verified 12/02/17 14:22 hydrocodone Allergy Verified 01/20/15 13:15 hydrocodone bitartrate Allergy Verified 01/20/15 13:15 [From Vicodin] ibuprofen Allergy Verified 11/30/17 08:25 indomethacin [From Indocin] Allergy Verified 08/17/15 14:46 indomethacin sodium Allergy Verified 08/17/15 14:46 [From Indocin] iodine Allergy Verified 11/29/17 15:13 ketorolac [From Toradol] Allergy Verified 11/29/17 15:13 lactase [From Dairy Aid] Allergy Verified 11/29/17 14:11 lactose Allergy Verified 11/29/17 14:11 meclofenamate sodium Allergy Verified 08/17/15 14:46 [From Meclomen] morphine Allergy Verified 01/20/15 13:15 naproxen Allergy Verified 11/30/17 08:25 nitrofurantoin Allergy Verified 11/29/17 15:13 [From Macrodantin] oxycodone [From Percodan] Allergy Verified 11/30/17 08:25 Penicillins Allergy Verified 08/15/15 14:50 phenazopyridine Allergy Verified 11/29/17 15:13 [From Pyridium] povidone-iodine Allergy Verified 11/30/17 08:25 [From Betadine] propoxyphene [From Darvon] Allergy Verified 11/30/17 08:25 propoxyphene HCl Allergy Verified 01/20/15 13:15 [From Darvon] propranolol [From Inderal LA] Allergy Verified 11/30/17 08:25 soap [From Betadine] Allergy Verified 11/30/17 08:25 Sulfa (Sulfonamide Allergy Verified 01/20/15 13:15 Antibiotics) sulfamethoxazole Allergy Verified 11/29/17 15:13 [From Septra] tetracycline Allergy Verified 11/29/17 15:13 tramadol Allergy Verified 11/30/17 08:25 trimethoprim [From Septra] Allergy Verified 11/29/17 15:13 verapamil Allergy Verified 08/17/15 14:46 Medications: Current Medications Acetaminophen (Tylenol) 650 mg PO Q6H PRN PRN Reason: Headache/Fever or Pain Last Admin: 12/03/17 08:29 Dose: 650 mg Albuterol/Ipratropium (Duoneb) 3 ml NEB [id number] [facility] Last Admin: 12/03/17 07:21 Dose: 3 ml Aspirin (Aspirin Chewable) 81 mg PO DAILY [facility] Last Admin: 12/03/17 08:34 Dose: 81 mg Cefdinir (Omnicef) 300 mg PO BID [facility] Last Admin: 12/03/17 08:34 Dose: 300 mg Docusate Sodium (Colace) 100 mg PO BID [facility] Last Admin: 12/03/17 08:35 Dose: Not Given Enoxaparin Sodium (Lovenox) 30 mg SC 0900 [facility] Last Admin: 12/03/17 08:33 Dose: 30 mg Guaifenesin/Dextromethorphan (Robitussin Dm) 15 ml PO Q4H PRN PRN Reason: Cough Levothyroxine Sodium (Synthroid) 100 mcg PO 0600 [facility] Last Admin: 12/03/17 05:45 Dose: 100 mcg Lidocaine (Lidoderm 5% Patch) 1 patch TD DAILY [facility] Last Admin: 12/03/17 08:29 Dose: 1 patch Remove Lidocaine (Patch) 1 each FS 2100 [facility] Ondansetron HCl (Zofran) 4 mg IVP Q6H PRN PRN Reason: Nausea/Vomiting Last Admin: 11/29/17 21:31 Dose: 4 mg Pantoprazole Sodium (Protonix) 40 mg PO DAILY [facility] Last Admin: 12/03/17 08:34 Dose: 40 mg Ranitidine 150mg Patient's Home Medication 1 each PO 0800,1200 [facility] Last Admin: 12/03/17 12:06 Dose: Not Given Polyethylene Glycol (Miralax) 17 gm PO DAILY [facility] Last Admin: 12/03/17 08:33 Dose: Not Given Prednisone (Prednisone) 20 mg PO QAM-WM [facility] Last Admin: 12/03/17 08:35 Dose: 20 mg Raloxifene HCl (Evista) 60 mg PO DAILY [facility] Last Admin: 12/03/17 08:33 Dose: 60 mg Saccharomyces Boulardii (Florastor) 250 mg PO DAILY [facility] Last Admin: 12/03/17 08:34 Dose: 250 mg Sodium Chloride (Flush - Normal Saline) 10 ml IVF Q12HR [facility] Last Admin: 12/03/17 08:35 Dose: 10 ml Sodium Chloride (Flush - Normal Saline) 10 ml IVF PRN PRN PRN Reason: Saline Flush
[2017-12-03] MEDS ORDERED: Diphenoxylate HCl/Atropine Tablet PO PRN (23:54)
[2017-12-04 04:39] LABS: #Eosinphils 0.1 thou/uL (0.0-0.7); #Lymphocytes 2.4 thou/uL (1.20-3.40); #Monocytes 0.9 thou/uL (0.11-0.59); #Neutrophils 7.3 thou/uL (1.40-6.50); %Eosinophils 0.7 % (0.0-10.0); %Lymphocytes 22.6 % (21.0-51.0); %Monocytes 8.2 % (0.0-10.0); %Neutrophils 68.5 % (42.0-75.0); Hemoglobin 10.1 g/dL (12.0-16.0); Mean Corpuscular HGB CONC 33.4 g/dL (32.0-36.0); Mean Corpuscular Hemoglobin 29.5 pg (27.0-31.0); Mean Corpuscular Volume 88.3 fl (81.0-99.0); Mean Platelet Volume 6.7 fL (7.4-10.4); Platelet Count 347 thou/uL (130-400); RBC Distribution Width 12.8 % (11.5-14.5); Red Blood Cell (RBC) Count 3.43 mill/uL (4.20-5.40); White Blood Cell (WBC) Count 10.7 thou/uL (4.8-10.8)
[2017-12-04 05:05] LABS: Anion Gap 8 mmol/L (10-20); BUN (Urea Nitrogen) 30 mg/dL (9.8-20.1); Calc. Creatinine Clearance 43 mL/min (70-130); Calcium 8.6 mg/dL (7.8-10.44); Carbon Dioxide 24 mmol/L (23-31); Chloride 108 mmol/L (98-107); Estimated GFR-MDRD 78; Glucose 82 mg/dL (83-110); Potassium 4.3 mmol/L (3.5-5.1); Sodium 136 mmol/L (136-145)
[2017-12-04] MEDS: Levothyroxine Sodium 100 MCG TAB PO SCH (05:35)
[2017-12-04] MEDS: Acetaminophen 325 MG TAB PO PRN ×3 (05:35→23:53)
[2017-12-04] MEDS: Cefdinir 300 MG CAP PO SCH ×2 (08:10→20:48)
[2017-12-04] MEDS: Lidocaine 5% Patch TD SCH (08:10)
[2017-12-04] MEDS: Enoxaparin Sodium 30 MG/0.3 ML SYRINGE SC SCH (08:10)
[2017-12-04] MEDS: Saccharomyces boulardii 250 MG CAP PO SCH (08:11)
[2017-12-04] MEDS: predniSONE 20 MG TAB PO SCH (08:11)
[2017-12-04] MEDS: Docusate 100 MG CAP PO SCH ×2 (08:12→20:48)
[2017-12-04] MEDS: Polyethylene Glycol 3350 17 GM Packet PO SCH (08:12)
[2017-12-04] MEDS: RANITIDINE 150 MG PO SCH ×2 (08:12→11:51)
--- NOTE | 2017-12-04 15:28 | PDOC.PN ---
- Subjective Encounter Start Date: 12/04/17 Encounter Start Time: 12:00 Subjective: feels better, pain is better after lidocaine tts and tylenol -: no sob - Objective Resuscitation Status: Resuscitation Status FULL:Full Resuscitation MAR Reviewed: Yes Vital Signs & Weight: Vital Signs (12 hours) Temp Pulse Resp BP Pulse Ox 12/04/17 13:01 80 12 12/04/17 08:00 98.1 F 73 18 95 12/04/17 07:32 98.1 F 73 18 107/65 95 12/04/17 07:12 82 12 Weight Admit Weight 106 lb Weight 106 lb 1.6 oz I&O: 12/03/17 12/04/17 12/05/17 06:59 06:59 06:59 Intake Total 1300 Balance 1300 Result Diagrams: 12/04/17 04:15 12/04/17 04:15 Phys Exam - Physical Examination HEENT: PERRLA, moist MMs Neck: no JVD, supple Respiratory: no wheezing, no rales rhonchi+ Cardiovascular: RRR, no significant murmur Gastrointestinal: soft, non-tender, positive bowel sounds Musculoskeletal: no edema, pulses present Neurological: non-focal, moves all 4 limbs Psychiatric: A&O x 3 Dx/Plan (1) Sepsis Code(s): A41.9 - SEPSIS, UNSPECIFIED ORGANISM Status: Resolved Qualifiers: Sepsis type: sepsis due to unspecified organism Qualified Code(s): A41.9 - Sepsis, unspecified organism (2) PNA (pneumonia) Code(s): J18.9 - PNEUMONIA, UNSPECIFIED ORGANISM Status: Acute Qualifiers: Pneumonia type: due to unspecified organism Laterality: bilateral (3) HTN (hypertension) Code(s): I10 - ESSENTIAL (PRIMARY) HYPERTENSION Status: Chronic Qualifiers: Hypertension type: essential hypertension Qualified Code(s): I10 - Essential (primary) hypertension (4) H/O hiatal hernia Code(s): Z87.19 - PERSONAL HISTORY OF OTHER DISEASES OF THE DIGESTIVE SYSTEM Status: Chronic (5) Hypothyroidism Code(s): E03.9 - HYPOTHYROIDISM, UNSPECIFIED Status: Chronic Qualifiers: Hypothyroidism type: unspecified Qualified Code(s): E03.9 - Hypothyroidism , unspecified (6) History of esophageal stricture Code(s): Z87.19 - PERSONAL HISTORY OF OTHER DISEASES OF THE DIGESTIVE SYSTEM Status: Chronic Comment: last dilatation was 1 yr back - Plan is on omnicef, oral prednisone -: aspirin, lidocaine tts, protonix daily -: to ambulate as tolerated -: wants to go home in am -: nebs prn, wbc down to 10 from 28k this am * . Review of Systems - Medications/Allergies Allergies/Adverse Reactions: Allergies Allergy/AdvReac Type Severity Reaction Status Date / Time acetaminophen [From Vicodin] Allergy Verified 11/30/17 08:25 amoxicillin [From Larotid] Allergy Verified 11/30/17 08:25 aspirin [From Percodan] Allergy Verified 11/30/17 08:25 codeine Allergy Verified 01/20/15 13:15 esomeprazole [From Nexium] Allergy Verified 11/30/17 08:25 esomeprazole magnesium Allergy Verified 01/20/15 13:15 [From Nexium] famotidine [From Pepcid] Allergy Verified 12/02/17 14:22 hydrocodone Allergy Verified 01/20/15 13:15 hydrocodone bitartrate Allergy Verified 01/20/15 13:15 [From Vicodin] ibuprofen Allergy Verified 11/30/17 08:25 indomethacin [From Indocin] Allergy Verified 08/17/15 14:46 indomethacin sodium Allergy Verified 08/17/15 14:46 [From Indocin] iodine Allergy Verified 11/29/17 15:13 ketorolac [From Toradol] Allergy Verified 11/29/17 15:13 lactase [From Dairy Aid] Allergy Verified 11/29/17 14:11 lactose Allergy Verified 11/29/17 14:11 meclofenamate sodium Allergy Verified 08/17/15 14:46 [From Meclomen] morphine Allergy Verified 01/20/15 13:15 naproxen Allergy Verified 11/30/17 08:25 nitrofurantoin Allergy Verified 11/29/17 15:13 [From Macrodantin] oxycodone [From Percodan] Allergy Verified 11/30/17 08:25 Penicillins Allergy Verified 08/15/15 14:50 phenazopyridine Allergy Verified 11/29/17 15:13 [From Pyridium] povidone-iodine Allergy Verified 11/30/17 08:25 [From Betadine] propoxyphene [From Darvon] Allergy Verified 11/30/17 08:25 propoxyphene HCl Allergy Verified 01/20/15 13:15 [From Darvon] propranolol [From Inderal LA] Allergy Verified 11/30/17 08:25 soap [From Betadine] Allergy Verified 11/30/17 08:25 Sulfa (Sulfonamide Allergy Verified 01/20/15 13:15 Antibiotics) sulfamethoxazole Allergy Verified 11/29/17 15:13 [From Septra] tetracycline Allergy Verified 11/29/17 15:13 tramadol Allergy Verified 11/30/17 08:25 trimethoprim [From Septra] Allergy Verified 11/29/17 15:13 verapamil Allergy Verified 08/17/15 14:46 Medications: Current Medications Acetaminophen (Tylenol) 650 mg PO Q6H PRN PRN Reason: Headache/Fever or Pain Last Admin: 12/04/17 05:35 Dose: 650 mg Albuterol/Ipratropium (Duoneb) 3 ml NEB [id number] [facility] Last Admin: 12/04/17 13:01 Dose: 3 ml Aspirin (Aspirin Chewable) 81 mg PO DAILY [facility] Last Admin: 12/04/17 08:11 Dose: 81 mg Cefdinir (Omnicef) 300 mg PO BID [facility] Last Admin: 12/04/17 08:10 Dose: 300 mg Diphenoxylate HCl/Atropine (Lomotil) 1 tab PO QIDPRN PRN PRN Reason: Diarrhea/Loose Stools Docusate Sodium (Colace) 100 mg PO BID [facility] Last Admin: 12/04/17 08:12 Dose: Not Given Enoxaparin Sodium (Lovenox) 30 mg SC 0900 [facility] Last Admin: 12/04/17 08:10 Dose: 30 mg Guaifenesin/Dextromethorphan (Robitussin Dm) 15 ml PO Q4H PRN PRN Reason: Cough Levothyroxine Sodium (Synthroid) 100 mcg PO 0600 [facility] Last Admin: 12/04/17 05:35 Dose: 100 mcg Lidocaine (Lidoderm 5% Patch) 1 patch TD DAILY [facility] Last Admin: 12/04/17 08:10 Dose: 1 patch Remove Lidocaine (Patch) 1 each FS 2100 [facility] Last Admin: 12/03/17 21:35 Dose: 1 each Ondansetron HCl (Zofran) 4 mg IVP Q6H PRN PRN Reason: Nausea/Vomiting Last Admin: 11/29/17 21:31 Dose: 4 mg Pantoprazole Sodium (Protonix) 40 mg PO DAILY [facility] Last Admin: 12/04/17 08:11 Dose: 40 mg Ranitidine 150mg Patient's Home Medication 1 each PO 0800,1200 [facility] Last Admin: 12/04/17 11:51 Dose: Not Given Polyethylene Glycol (Miralax) 17 gm PO DAILY [facility] Last Admin: 12/04/17 08:12 Dose: Not Given Prednisone (Prednisone) 20 mg PO QAM-WM [facility] Last Admin: 12/04/17 08:11 Dose: 20 mg Raloxifene HCl (Evista) 60 mg PO DAILY [facility] Last Admin: 12/04/17 08:11 Dose: 60 mg Saccharomyces Boulardii (Florastor) 250 mg PO DAILY [facility] Last Admin: 12/04/17 08:11 Dose: 250 mg Sodium Chloride (Flush - Normal Saline) 10 ml IVF Q12HR [facility] Last Admin: 12/04/17 08:12 Dose: 10 ml Sodium Chloride (Flush - Normal Saline) 10 ml IVF PRN PRN PRN Reason: Saline Flush
[2017-12-05 05:14] LABS: Anion Gap 8 mmol/L (10-20); BUN (Urea Nitrogen) 29 mg/dL (9.8-20.1); Calc. Creatinine Clearance 41 mL/min (70-130); Calcium 8.8 mg/dL (7.8-10.44); Carbon Dioxide 26 mmol/L (23-31); Chloride 106 mmol/L (98-107); Estimated GFR-MDRD 74; Glucose 76 mg/dL (83-110); Potassium 4.1 mmol/L (3.5-5.1); Sodium 136 mmol/L (136-145)
[2017-12-05 05:28] LABS: Band 3 % (5-11); Hemoglobin 10.4 g/dL (12.0-16.0); Lymphocytes 26 % (21-51); MDiff Complete? YES; Mean Corpuscular HGB CONC 34.2 g/dL (32.0-36.0); Mean Corpuscular Hemoglobin 30.3 pg (27.0-31.0); Mean Corpuscular Volume 88.5 fl (81.0-99.0); Mean Platelet Volume 6.9 fL (7.4-10.4); Monocytes 7 % (0-10); Neutrophil 64 % (42-75); Platelet Count 340 thou/uL (130-400); RBC Distribution Width 12.7 % (11.5-14.5); Red Blood Cell (RBC) Count 3.43 mill/uL (4.20-5.40); White Blood Cell (WBC) Count 13.2 thou/uL (4.8-10.8)
[2017-12-05] MEDS: Levothyroxine Sodium 100 MCG TAB PO SCH (06:39)
[2017-12-05] MEDS: Acetaminophen 325 MG TAB PO PRN ×3 (06:39→20:46)
[2017-12-05] MEDS: Lidocaine 5% Patch TD SCH (06:39)
[2017-12-05] MEDS: Cefdinir 300 MG CAP PO SCH ×2 (08:53→20:41)
[2017-12-05] MEDS: Saccharomyces boulardii 250 MG CAP PO SCH (08:53)
[2017-12-05] MEDS: predniSONE 20 MG TAB PO SCH (08:53)
[2017-12-05] MEDS: Docusate 100 MG CAP PO SCH ×3 (08:54→20:42)
[2017-12-05] MEDS: Polyethylene Glycol 3350 17 GM Packet PO SCH ×2 (08:54→13:54)
[2017-12-05] MEDS: Enoxaparin Sodium 30 MG/0.3 ML SYRINGE SC SCH (08:58)
[2017-12-05] MEDS: RANITIDINE 150 MG PO SCH ×2 (08:59→12:29)
--- NOTE | 2017-12-05 09:37 | PRG ---
DATE OF SERVICE: 12/05/2017 She is better. She is having some back pains. PHYSICAL EXAMINATION: VITAL SIGNS: Sats 96% on room air, temperature 98, blood pressure 121/70. CHEST: Decreased breath sounds, no wheezing. CARDIAC: Normal S1-S2. No gallops. ABDOMEN: No masses. Electrolytes are normal. Her white count is decreased. IMPRESSION: 1. Status post bilateral bronchopneumonia, right greater than left, probably recurrent aspiration. 2. Advanced age. 3. Osteoporosis. 4. Chronic pain. PLAN: She is on p.o. medication. Hopefully, we can discharge home in the next 24-48 hours.
--- NOTE | 2017-12-05 12:04 | RAD ---
PA AND LATERAL VIEWS OF CHEST: Date: 12/05/17 HISTORY: Pneumonia. FINDINGS/IMPRESSION: Comparison made with exam of 11/29/17. The patchy infiltrates in the right upper lobe demonstrate near complete resolution. No pneumothorace s or pleural effusions are seen. There are degenerative changes in the spine. There is residual contr ast in the colon. There are nodular densities in the lungs bilaterally, some of which were not seen on the exam of 07/26 12/07. Further evaluation with CT scan is recommended. POS: C
[2017-12-05] MEDS ORDERED: Acetaminophen 325 MG TAB PO SCH ×2 (14:00→21:00)
--- NOTE | 2017-12-05 16:34 | RAD ---
PORTABLE 1 VIEW ABDOMEN: Date: 12/05/17 Supine abdomen obtained. INDICATION: Assess barium within the colon for clearance for CT exam. FINDINGS/IMPRESSION: A large amount of barium remains throughout the colon. Recommend cleansing enemas to allow for CT sc an. POS: [facility]
--- NOTE | 2017-12-05 16:42 | PDOC.PN ---
- Subjective Encounter Start Date: 12/05/17 Encounter Start Time: 11:35 Subjective: c/o pain over left ischial tuberosity, no radiation -: has severe pain and is in tears -: daughter at bedside, no sob - Objective Resuscitation Status: Resuscitation Status FULL:Full Resuscitation MAR Reviewed: Yes Vital Signs & Weight: Vital Signs (12 hours) Temp Pulse Resp BP Pulse Ox 12/05/17 13:04 82 16 96 12/05/17 07:22 98.0 F 76 16 121/70 97 12/05/17 06:57 86 16 96 Weight Admit Weight 106 lb Weight 106 lb 1.6 oz I&O: 12/04/17 12/05/17 12/06/17 06:59 06:59 06:59 Intake Total 1300 800 Balance 1300 800 Result Diagrams: 12/05/17 03:48 12/05/17 03:48 Phys Exam - Physical Examination HEENT: PERRLA, sclera anicteric Neck: no JVD, supple Respiratory: no wheezing, no rales Cardiovascular: RRR, no significant murmur Gastrointestinal: soft, non-tender, positive bowel sounds Musculoskeletal: pulses present, edema present Neurological: non-focal, moves all 4 limbs Psychiatric: A&O x 3 Dx/Plan (1) Sepsis Code(s): A41.9 - SEPSIS, UNSPECIFIED ORGANISM Status: Resolved Qualifiers: Sepsis type: sepsis due to unspecified organism Qualified Code(s): A41.9 - Sepsis, unspecified organism (2) PNA (pneumonia) Code(s): J18.9 - PNEUMONIA, UNSPECIFIED ORGANISM Status: Acute Qualifiers: Pneumonia type: due to unspecified organism Laterality: bilateral Comment: resolving (3) HTN (hypertension) Code(s): I10 - ESSENTIAL (PRIMARY) HYPERTENSION Status: Chronic Qualifiers: Hypertension type: essential hypertension Qualified Code(s): I10 - Essential (primary) hypertension (4) H/O hiatal hernia Code(s): Z87.19 - PERSONAL HISTORY OF OTHER DISEASES OF THE DIGESTIVE SYSTEM Status: Chronic (5) Hypothyroidism Code(s): E03.9 - HYPOTHYROIDISM, UNSPECIFIED Status: Chronic Qualifiers: Hypothyroidism type: unspecified Qualified Code(s): E03.9 - Hypothyroidism , unspecified (6) History of esophageal stricture Code(s): Z87.19 - PERSONAL HISTORY OF OTHER DISEASES OF THE DIGESTIVE SYSTEM Status: Chronic Comment: last dilatation was 1 yr back - Plan pelvic CT cant be done due to barium still in the colon -: fleets enema x1, colace, miralax, encourage po intake -: to amb in hallway as tolerated -: cxr shows resolving pna, d/w -: d/w daughter at bedside, hold dc for today * . Has developed edema in LE, lasix iv q12h, hold for sbp less than 100. Continue omnicef, tapering steroids, nebs, lidocaine patch with tylenol for pain. Review of Systems - Medications/Allergies Allergies/Adverse Reactions: Allergies Allergy/AdvReac Type Severity Reaction Status Date / Time acetaminophen [From Vicodin] Allergy Verified 11/30/17 08:25 amoxicillin [From Larotid] Allergy Verified 11/30/17 08:25 aspirin [From Percodan] Allergy Verified 11/30/17 08:25 codeine Allergy Verified 01/20/15 13:15 esomeprazole [From Nexium] Allergy Verified 11/30/17 08:25 esomeprazole magnesium Allergy Verified 01/20/15 13:15 [From Nexium] famotidine [From Pepcid] Allergy Verified 12/02/17 14:22 hydrocodone Allergy Verified 01/20/15 13:15 hydrocodone bitartrate Allergy Verified 01/20/15 13:15 [From Vicodin] ibuprofen Allergy Verified 11/30/17 08:25 indomethacin [From Indocin] Allergy Verified 08/17/15 14:46 indomethacin sodium Allergy Verified 08/17/15 14:46 [From Indocin] iodine Allergy Verified 11/29/17 15:13 ketorolac [From Toradol] Allergy Verified 11/29/17 15:13 lactase [From Dairy Aid] Allergy Verified 11/29/17 14:11 lactose Allergy Verified 11/29/17 14:11 meclofenamate sodium Allergy Verified 08/17/15 14:46 [From Meclomen] morphine Allergy Verified 01/20/15 13:15 naproxen Allergy Verified 11/30/17 08:25 nitrofurantoin Allergy Verified 11/29/17 15:13 [From Macrodantin] oxycodone [From Percodan] Allergy Verified 11/30/17 08:25 Penicillins Allergy Verified 08/15/15 14:50 phenazopyridine Allergy Verified 11/29/17 15:13 [From Pyridium] povidone-iodine Allergy Verified 11/30/17 08:25 [From Betadine] propoxyphene [From Darvon] Allergy Verified 11/30/17 08:25 propoxyphene HCl Allergy Verified 01/20/15 13:15 [From Darvon] propranolol [From Inderal LA] Allergy Verified 11/30/17 08:25 soap [From Betadine] Allergy Verified 11/30/17 08:25 Sulfa (Sulfonamide Allergy Verified 01/20/15 13:15 Antibiotics) sulfamethoxazole Allergy Verified 11/29/17 15:13 [From Septra] tetracycline Allergy Verified 11/29/17 15:13 tramadol Allergy Verified 11/30/17 08:25 trimethoprim [From Septra] Allergy Verified 11/29/17 15:13 verapamil Allergy Verified 08/17/15 14:46 Medications: Current Medications Acetaminophen (Tylenol) 650 mg PO Q6H PRN PRN Reason: Headache/Fever or Pain Last Admin: 12/05/17 13:51 Dose: 650 mg Albuterol/Ipratropium (Duoneb) 3 ml NEB [id number] [facility] Last Admin: 12/05/17 13:04 Dose: 3 ml Aspirin (Aspirin Chewable) 81 mg PO DAILY [facility] Last Admin: 12/05/17 08:54 Dose: 81 mg Cefdinir (Omnicef) 300 mg PO BID [facility] Last Admin: 12/05/17 08:53 Dose: 300 mg Docusate Sodium (Colace) 100 mg PO BID [facility] Last Admin: 12/05/17 13:52 Dose: 100 mg Enoxaparin Sodium (Lovenox) 30 mg SC 0900 [facility] Last Admin: 12/05/17 08:58 Dose: 30 mg Furosemide (Lasix) 20 mg SLOW IVP 0600,1400 [facility] Furosemide (Lasix) 20 mg SLOW IVP ONE [facility] Guaifenesin/Dextromethorphan (Robitussin Dm) 15 ml PO Q4H PRN PRN Reason: Cough Levothyroxine Sodium (Synthroid) 100 mcg PO 0600 [facility] Last Admin: 12/05/17 06:39 Dose: 100 mcg Lidocaine (Lidoderm 5% Patch) 1 patch TD DAILY [facility] Last Admin: 12/05/17 06:39 Dose: 1 patch Remove Lidocaine (Patch) 1 each FS 2100 [facility] Last Admin: 12/04/17 20:48 Dose: 1 each Ondansetron HCl (Zofran) 4 mg IVP Q6H PRN PRN Reason: Nausea/Vomiting Last Admin: 11/29/17 21:31 Dose: 4 mg Pantoprazole Sodium (Protonix) 40 mg PO DAILY [facility] Last Admin: 12/05/17 08:53 Dose: 40 mg Ranitidine 150mg Patient's Home Medication 1 each PO 0800,1200 [facility] Last Admin: 12/05/17 12:29 Dose: Not Given Polyethylene Glycol (Miralax) 17 gm PO DAILY [facility] Last Admin: 12/05/17 13:54 Dose: 17 gm Prednisone (Prednisone) 20 mg PO QA-[facility] Last Admin: 12/05/17 08:53 Dose: 20 mg Raloxifene HCl (Evista) 60 mg PO DAILY [facility] Last Admin: 12/05/17 08:54 Dose: 60 mg Saccharomyces Boulardii (Florastor) 250 mg PO DAILY [facility] Last Admin: 12/05/17 08:53 Dose: 250 mg Sodium Biphosphate/Sodium Phosphate (Fleet Enema) 133 ml ID ONE [facility] Sodium Chloride (Flush - Normal Saline) 10 ml IVF Q12HR [facility] Last Admin: 12/05/17 08:54 Dose: 10 ml Sodium Chloride (Flush - Normal Saline) 10 ml IVF PRN PRN PRN Reason: Saline Flush
[2017-12-05] MEDS ORDERED: Furosemide 20 MG/2 ML VIAL SLOW IVP SCH (17:00)
[2017-12-05] MEDS ORDERED: Fleet Enema 133 ML BOT PR SCH (17:15)
[2017-12-05] MEDS ORDERED: Promethazine HCl 12.5 MG SUPP PR SCH (23:30)
[2017-12-06 04:36] LABS: Anion Gap 10 mmol/L (10-20); BUN (Urea Nitrogen) 29 mg/dL (9.8-20.1); Calc. Creatinine Clearance 44 mL/min (70-130); Calcium 8.4 mg/dL (7.8-10.44); Carbon Dioxide 25 mmol/L (23-31); Chloride 107 mmol/L (98-107); Estimated GFR-MDRD 81; Glucose 83 mg/dL (83-110); Potassium 3.8 mmol/L (3.5-5.1); Sodium 138 mmol/L (136-145)
[2017-12-06 04:51] LABS: Band 1 % (5-11); Eosinophils 1 % (0-10); Hemoglobin 10.4 g/dL (12.0-16.0); Lymphocytes 23 % (21-51); MDiff Complete? YES; Mean Corpuscular HGB CONC 33.6 g/dL (32.0-36.0); Mean Corpuscular Hemoglobin 29.7 pg (27.0-31.0); Mean Corpuscular Volume 88.2 fl (81.0-99.0); Mean Platelet Volume 6.4 fL (7.4-10.4); Metamyelocyte 1 % (0-0); Monocytes 6 % (0-10); Neutrophil 68 % (42-75); Platelet Count 364 thou/uL (130-400); RBC Distribution Width 12.6 % (11.5-14.5); Red Blood Cell (RBC) Count 3.52 mill/uL (4.20-5.40); White Blood Cell (WBC) Count 11.6 thou/uL (4.8-10.8)
[2017-12-06] MEDS: Levothyroxine Sodium 100 MCG TAB PO SCH (05:30)
[2017-12-06] MEDS ORDERED: Furosemide 20 MG/2 ML VIAL SLOW IVP SCH (06:00)
[2017-12-06 07:42] VITALS: BP 127/74; TEMP 98.3
[2017-12-06] MEDS ORDERED: predniSONE 20 MG TAB PO SCH (08:53)
[2017-12-06] MEDS ORDERED: Fluconazole 100 MG TAB PO SCH (09:00)
[2017-12-06] MEDS: Lidocaine 5% Patch TD SCH (09:41)
[2017-12-06] MEDS: Acetaminophen 325 MG TAB PO PRN ×2 (09:47→14:28)
[2017-12-06] MEDS: RANITIDINE 150 MG PO SCH ×2 (09:48→12:24)
--- NOTE | 2017-12-06 09:51 | PRG ---
DATE OF SERVICE: 12/06/2017 She is better, awake, alert, responsive. PHYSICAL EXAMINATION: VITAL SIGNS: Sats are 100% on room air, blood pressure 127/74, temperature 98, pulse 18. GENERAL: She has multiple complaints. HEENT; She has a dry mouth, fissure in the mouth. Mouth is sore. EXTREMITIES: Left leg swelling. She walked in the rivas. CHEST: Chest reveals bilateral rhonchi and crackles. CARDIAC: Normal S1, S2, no gallops. ABDOMEN: Abdomen is soft. LABORATORY DATA: White count down to 11,000, H&H is unremarkable. Platelet count normal. BUN is sl ightly increased at 29, probably from the diuretics. IMPRESSION: 1. Lower extremity swelling, probably secondary to right-sided heart failure. 2. Sjogren's syndrome. 3. Pneumonia, improved. 4. She has baseline previously described about a nodular density in May. PLAN: I would discharge her home as soon as possible. Antibiotics for 5 days, prednisone for 5 days , Diflucan for 5 days. I will see her in the office in about a month, repeat a chest x-ray. If the density persists we will do outpatient CT of her chest.
--- NOTE | 2017-12-06 10:05 | RAD ---
ABDOMEN 1 VIEW: Date: 12/06/17 HISTORY: Evaluate for barium for clearance for CT scan. FINDINGS/IMPRESSION: Comparison made with exam from previous day. A large amount of residual barium is present throughout the colon. POS: SURAJ
[2017-12-06] MEDS ORDERED: Promethazine HCl 12.5 MG SUPP PR PRN (10:33)
[2017-12-06] MEDS: Enoxaparin Sodium 30 MG/0.3 ML SYRINGE SC SCH (12:15)
[2017-12-06] MEDS: Docusate 100 MG CAP PO SCH (12:21)
[2017-12-06] MEDS: Cefdinir 300 MG CAP PO SCH (12:21)
[2017-12-06] MEDS: predniSONE 20 MG TAB PO SCH (12:22)
[2017-12-06] MEDS: Saccharomyces boulardii 250 MG CAP PO SCH (12:22)
[2017-12-06] MEDS: Polyethylene Glycol 3350 17 GM Packet PO SCH (12:23)
[2017-12-07] MEDS ORDERED: predniSONE 20 MG TAB PO SCH (08:00)
--- NOTE | 2017-12-07 10:08 | DIS ---
DATE OF ADMISSION: 11/29/2017 DATE OF DISCHARGE: 12/06/2017 ADMITTING DIAGNOSES: Sepsis with pneumonia. DISCHARGE DIAGNOSES: Sepsis with pneumonia, aspiration type. SECONDARY DIAGNOSES: 1. History of Sjogren syndrome. 2. History of esophageal dysmotility. 3. Moderate to severe dehydration. CONSULTANTS: 1. Dr. Godfrey Palacios for pneumonia. 2. Dr. Matthew Judd for GI. HISTORY OF PRESENT ILLNESS/HOSPITAL COURSE: In brief, this is an 87-year-old white female with a [facility] history of Sjogren syndrome and esophageal dysmotility. The patient presented with acute onset of shortness of breath and fever. When she presented to the ER, she was noted to have a right lung pne umonia with bilateral lung involvement. The patient had progressive dysphagia to solids. Hence, it was diagnosed to be aspiration pneumonia during this admission and she was treated with IV antibiotic s for the same with Zosyn and vancomycin. The patient was seen by GI because of the solid food dysph agia which has been progressively worsening for the past few months. The patient had an esophageal s tricture. The patient was seen by Dr. Matthew Judd who initially recommended EGD, but the patient s tates she is very anxious about going through the procedure and did not want to go for the procedure at that time. The patient had a swallow study and Speech has recommended a modified diet which the p atient has been following. In the same time, the patient has been treated with IV antibiotics and wa s started on IV steroids which were later changed to oral steroids. The patient showed significant i mprovement, but she had severe nausea which has been treated with a suppository Phenergan which did c ontrol her symptoms. The patient continued to have some abdominal discomfort and had an abdominal x- ray with a barium swallow which did not show any evidence of acute inflammatory abdominal process and a CT of the pelvis was also ordered, but there was a continuous retention of the contrast in the gut , a CT could not be read properly. So it was recommended to repeat CT as outpatient. On the day of the discharge, the patient's abdominal pain was completely gone, but it was highly recommended that the patient undergo CT of her pelvis as she was complaining of some left ischial bone pain. There wa s no evidence of fall as the patient noted. The patient and the family agreed for the plan to be dis charged and followed up with a CT as outpatient. The patient was discharged in stable condition. PHYSICAL EXAMINATION: On date of discharge: VITAL SIGNS: Blood pressures are 127/74, heart rate of 71, respiration is 18, saturation 95% on room air. GENERAL: The patient is moderately built and nourished, does not appear to be in acute distress. CARDIOVASCULAR: S1, S2 normal. No murmurs, rubs or gallops. LUNGS: Bilateral air entry was equal. No wheezing, no crackles. ABDOMEN: Soft, nontender, no guarding, no rebound tenderness. Bowel sounds are normal. MUSCULOSKELETAL: No calf tenderness. No pedal edema, no tenderness, no joint swelling. HOME MEDICATIONS: Pantoprazole 40 mg p.o. daily, aspirin 81 mg p.o. daily, levothyroxine 100 mg p.o. daily, and raloxifene 60 mg p.o. daily. DISCHARGE MEDICATIONS: 1. New medications, advised to continue Omnicef 300 mg p.o. b.i.d. for another 7 days. 2. Fluconazole 100 mg p.o. daily, 10 tablets. 3. DuoNebs nebulizer treatment, continue every 6 hours as needed. 4. Given a lidocaine patch 5% for her back pain. 5. Prednisone 10 mg p.o. b.i.d., tapering dose as suggested by Dr. Palacios. 6. Phenergan 12.5 mg p.o. q.6h. p.r.n. suppository for nausea. DISCHARGE INSTRUCTIONS: 1. Continue activity as tolerated. 2. Advised to follow up with the primary care physician in 1-2 weeks and get the CT of the pelvis co mpleted for her ongoing hip pain. 3. Continue follow up with Dr. Palacios in 1-2 weeks. 4. Continue the modified diet suggested by Speech Therapy. ACTIVITY: As tolerated. I spent 35 minutes with this patient on the day of discharge.
== END 2017-12-06 18:07 | disposition home or self-care (01) | DRG 871 ==
LOC: ERS 09:54 → 2NO 12:44 → T4-A 11-30 11:30
PROVIDERS: ADMIT Internal Medicine; ATTEND Internal Medicine
DX: A41.9 Sepsis, unspecified organism (principal); J18.0 Bronchopneumonia, unspecified organism; J69.0 Pneumonitis due to inhalation of food and vomit; M35.00 Sjogren syndrome, unspecified; E03.9 Hypothyroidism, unspecified; Z88.8 Allergy status to other drugs, medicaments and biological substances; Z88.5 Allergy status to narcotic agent; Z88.0 Allergy status to penicillin; Z88.1 Allergy status to other antibiotic agents; Z88.2 Allergy status to sulfonamides; Z79.899 Other long term (current) drug therapy; Z79.82 Long term (current) use of aspirin; I50.9 Heart failure, unspecified; M81.0 Age-related osteoporosis without current pathological fracture; G89.29 Other chronic pain; J98.4 Other disorders of lung; E86.0 Dehydration; K22.2 Esophageal obstruction; D64.9 Anemia, unspecified
CPT/HCPCS: 36415; 71045; 71046; 74018; 74220; 74230; 80048; 80053; 82553; 82728; 83540; 83550; 83605; 83690; 83735; 84484; 85025; 87040; 93005; 94640; 96361; 96365; A4216; G8978-GP-CK; G8979-GP-CK; G8980-GP-CK; G8996-GN-CJ; G8997-GN-CJ; J0692; J1200; J1650; J1956; J2405; J2920; J7506; J7620

== ENCOUNTER 2017-12-14 10:47 | Outpatient (CLI) | payer MEDICARE, BC, OTHER ==
--- NOTE | 2017-12-14 12:42 | CT ---
PELVIC CT SCAN WITHOUT IV CONTRAST: History: 87-year-old female with left hip pain radiating down left leg and left buttock. FINDINGS: There are bilateral sacral ala insufficiency type fractures, somewhat more prominent on the right suzy e. Bilateral SI joint degenerative osteoarthrosis. No evidence for an acute pelvic fracture or hip fr acture. Colonic diverticulosis without acute diverticulitis. Diffuse bony demineralization. Severe, a pproximately 1.1 cm of anterolisthesis of L5 on S1 with bilateral pars defects and severe spinal andrew l stenosis at the S1 level. IMPRESSION: Evidence for bilateral sacral ala insufficiency type fractures, worse on the right side. No evidence for acute pelvic or hip fracture. Bony demineralization with marked anterolisthesis of L5 on S1 with canal stenosis at S1 level. POS: SURAJ
== END 2017-12-14 10:48 | disposition home or self-care (01) ==
LOC: CT 10:47
PROVIDERS: ATTEND Internal Medicine
DX: M84.48XA Pathological fracture, other site, initial encounter for fracture (principal); M79.605 Pain in left leg; M48.07 Spinal stenosis, lumbosacral region
CPT/HCPCS: 72192

== ENCOUNTER 2017-12-17 21:44 | Inpatient (IN) | payer MEDICARE, BC, OTHER ==
[2017-12-17 23:30] LABS: Hemoglobin 6.1 g/dL (12.0-16.0); Mean Corpuscular HGB CONC 34.7 g/dL (32.0-36.0); Mean Corpuscular Hemoglobin 31.2 pg (27.0-31.0); Mean Corpuscular Volume 89.9 fl (81.0-99.0); Mean Platelet Volume 7.3 fL (7.4-10.4); Platelet Count 373 thou/uL (130-400); Red Blood Cell (RBC) Count 1.97 mill/uL (4.20-5.40); White Blood Cell (WBC) Count 39.6 thou/uL (4.8-10.8)
[2017-12-17 23:40] LABS: ALT (SGPT) 22 U/L (8-55); AST (SGOT) 21 U/L (5-34); Albumin 3.4 g/dL (3.4-4.8); Alkaline Phosphatase 235 U/L (40-150); Anion Gap 15 mmol/L (10-20); BUN (Urea Nitrogen) 37 mg/dL (9.8-20.1); Bilirubin, Total 1.4 mg/dL (0.2-1.2); Calc. Creatinine Clearance 0 mL/min (70-130); Carbon Dioxide 14 mmol/L (23-31); Chloride 105 mmol/L (98-107); Estimated GFR-MDRD 57; Globulin 3.8 g/dL (2.4-3.5); Glucose 121 mg/dL (83-110); Potassium 3.9 mmol/L (3.5-5.1); Protein, Total 7.2 g/dL (6.0-8.3); Sodium 130 mmol/L (136-145)
[2017-12-17 23:44] LABS: Band 17 % (5-11); CKMB 0.6 ng/mL (0-6.6); Lymphocytes 4 % (21-51); MDiff Complete? YES; Monocytes 3 % (0-10); Neutrophil 76 % (42-75); Troponin I Less than 0.010 ng/mL (< 0.028)
--- NOTE | 2017-12-17 23:57 | RAD ---
FRONTAL VIEW CHEST: INDICATIONS: Chest pain. FINDINGS: There are abnormal bilateral densities of the lungs, with a rounded morphology at the left mid inferi or lung and of the right perihilar region. A wedge-shaped density peripherally, within the lateral ri ght mid lung is a new finding. The cardiomediastinal silhouette is stable. IMPRESSION: 1. Persistent round mass density of the left mid inferior lung. Newly developed wedge-shaped periph eral right lateral mid lung zone opacity is present. 2. For the persistent bilateral rounded mass-like densities, malignancy is the diagnosis of exclusio n. This warrants further evaluation with CT thorax. 3. Newly developed wedge-shaped density of the right lateral mid lung zone favors an area of newly d eveloped consolidation related to pneumonia. Correlate clinically. POS: MICHAELH
[2017-12-18 00:03] LABS: INR-International Normal Ratio 1.3; PTT 46.5 SEC (22.9-36.1); Prothrombin Time 16.2 SEC (12.0-14.7)
[2017-12-18 00:09] LABS: Reticulocyte Count 1.8 % (0.5-1.5)
[2017-12-18] MEDS ORDERED: Vancomycin HCl 500 MG in Sodium Chloride 0.9% 100 ML IVPB SCH (01:15)
[2017-12-18] MEDS ORDERED: Ondansetron HCl/PF 4 MG/2 ML Vial IVP PRN ×2 (02:44→07:15)
[2017-12-18] MEDS ORDERED: Ondansetron ODT 4 MG TAB SL PRN (02:44)
[2017-12-18] MEDS ORDERED: Acetaminophen 325 MG TAB PO PRN ×3 (02:44→11:33)
[2017-12-18 03:19] VITALS: BMI 21.3
[2017-12-18] MEDS ORDERED: Loratadine 10 MG TAB PO PRN (07:15)
[2017-12-18] MEDS ORDERED: Bisacodyl 10 MG SUPP PR PRN (07:15)
[2017-12-18] MEDS ORDERED: Chloraseptic Spray 180 ml Bottle PO PRN (07:15)
[2017-12-18] MEDS ORDERED: Diabetic Tussin 200 MG/10 ML UDCUP PO PRN (07:15)
[2017-12-18] MEDS ORDERED: hydrALAZINE 20 MG/ML VIAL SLOW IVP PRN (07:15)
[2017-12-18] MEDS ORDERED: Milk Of Magnesia 30 ML UDCUP PO PRN (07:15)
[2017-12-18] MEDS ORDERED: Acetaminophen 650 MG Suppository PR PRN (07:15)
[2017-12-18] MEDS ORDERED: Sodium Chloride 0.65% Nasal 44 ML BOT EA NARE PRN (07:15)
[2017-12-18] MEDS ORDERED: Senokot 8.6 MG TAB PO PRN (07:15)
[2017-12-18] MEDS ORDERED: Mag-Al 1200 mg/1200 mg/30 ML UDCUP PO PRN (07:15)
[2017-12-18] MEDS ORDERED: Eucerin (Mineral Oil/Petrolatum,White) 30 gm Jar TOP PRN (07:15)
[2017-12-18 07:48] LABS: #Basophils 0.1 thou/uL (0.0-0.2); #Lymphocytes 1.7 thou/uL (1.20-3.40); #Monocytes 1.4 thou/uL (0.11-0.59); %Basophils 0.2 % (0.0-1.0); %Eosinophils 0.1 % (0.0-10.0); %Lymphocytes 7.3 % (21.0-51.0); %Monocytes 5.9 % (0.0-10.0); %Neutrophils 86.5 % (42.0-75.0); Hemoglobin 11.8 g/dL (12.0-16.0); Mean Corpuscular HGB CONC 34.5 g/dL (32.0-36.0); Mean Corpuscular Hemoglobin 30.7 pg (27.0-31.0); Mean Corpuscular Volume 88.8 fl (81.0-99.0); Mean Platelet Volume 7.1 fL (7.4-10.4); Platelet Count 217 thou/uL (130-400); RBC Distribution Width 13.2 % (11.5-14.5); Red Blood Cell (RBC) Count 3.84 mill/uL (4.20-5.40); White Blood Cell (WBC) Count 23.1 thou/uL (4.8-10.8)
[2017-12-18 08:05] LABS: Anion Gap 10 mmol/L (10-20); BUN (Urea Nitrogen) 29 mg/dL (9.8-20.1); Calc. Creatinine Clearance 38 mL/min (70-130); Calcium 8.4 mg/dL (7.8-10.44); Carbon Dioxide 17 mmol/L (23-31); Chloride 111 mmol/L (98-107); Estimated GFR-MDRD 68; Glucose 102 mg/dL (83-110); Potassium 3.6 mmol/L (3.5-5.1); Sodium 134 mmol/L (136-145)
[2017-12-18] MEDS: Saccharomyces boulardii 250 MG CAP PO SCH (09:58)
[2017-12-18] MEDS: guaiFENesin ER 600 MG TAB PO SCH ×2 (09:59→21:58)
[2017-12-18] MEDS: Enoxaparin Sodium 40 MG/0.4 ML SYRINGE SC SCH (09:59)
[2017-12-18 10:53] LABS: Bilirubin Negative (Negative); Blood, Urine Trace (Negative); Clarity CLEAR (Clear); Glucose, Urine (Dipstick) Negative (Negative); Leukocyte Small (Negative); Nitrite Negative (Negative); Protein, Urine (Dipstick) 30 mg/dL (Neg-Trace); Specific Gravity, Urine 1.013 (1.002-1.036); Urobilinogen 0.2 mg/dL (0.2-1.0); pH, Urine 5.5 (5.0-9.0)
[2017-12-18] MEDS: Acetaminophen 325 MG TAB PO PRN ×3 (10:53→21:58)
[2017-12-18 10:56] LABS: Bacteria/HPF None Seen HPF (None Seen); Hyaline Casts/LPF 0-3 HYALINE CAST LPF (0-3 Hyaline); Pathc Cast-AUWi Flag 0.58 (0-2.49); Squamous Epithelial 0-3 HPF (0-3)
[2017-12-18 11:00] LABS: Renal Epithelial None Seen HPF (0-3); Transitional Epithelial NONE SEEN HPF (0-3)
[2017-12-18] MEDS ORDERED: Sodium Chloride 0.9% 1,000 ML IV SCH (12:30)
--- NOTE | 2017-12-18 13:04 | HP ---
PRIMARY CARE PHYSICIAN: Dr. Daniel Key. REASON FOR ADMISSION: Worsening of pneumonia. HISTORY OF PRESENT ILLNESS: This is an 87-year-old female, who was admitted in our hospital on 11/29. At that time, patient was treated for pneumonia, suspected from aspiration. The patient was discharged home on oral antibiotic therapy. Patient has finished the antibiotic therapy last Tuesday . After discharge, the patient was doing well up until yesterday when she started having fever and g eneralized weakness. She was also hurting in her upper back, which was getting worse with deep breat pritesh as well as with coughing. She had only little amount of cough with a scant amount of sputum. S he did not have any hemoptysis. She denied any UTI symptoms. She was a little bit constipated, but she did not have any diarrhea. She did not have any hematochezia, hematemesis, or melena. During previous hospitalization, the patient had a modified barium swallow with Speech Therapy and di et was modified. At that time, the GI team was consulted, but patient was afraid of going for upper endoscopic evaluation, because of associated pneumonia. Today, in the emergency room, she had signif icant leukocytosis with a WBC of 39.6 and her hemoglobin is 6.1. Normally, her hemoglobin runs in th e 10 range. She was given 2 units of blood transfusion and after that her hemoglobin improved to 11. 8. The patient does not have any bleeding from any site, and she does not have any UTI symptoms. To day, in the emergency room, patient had chest x-ray, which showed persistent round mass density in th e left mid inferior lung and newly developed wedge-shaped peripheral right lateral midlung opacity an d that is persistent bilateral rounded mass-like density. When I saw this patient, she was saturating 96% on room air, and she was relatively hypotensive. ALLERGIES: The patient has multiple drug allergies including BETADINE, CODEINE, SULFATE, DARVON, HYD ROCODONE, INDOMETHACIN, MACRODANTIN, MORPHINE, NEXIUM, PENICILLIN, PYRIDIUM, BACTRIM, TETRACYCLINE, T ORADOL, VERAPAMIL as well as IODINE. CURRENT HOME MEDICATIONS: Aspirin 81 mg p.o. daily, DuoNeb q.6 hourly p.r.n., probiotic 1 capsule da mesfin, Synthroid 100 mcg p.o. daily, Protonix 40 mg p.o. daily, Evista 60 mg p.o. daily, Zantac 150 mg p.o. daily. PAST MEDICAL HISTORY: Sjogren syndrome, hiatal hernia, history of esophageal stricture, peptic ulcer disease, hypothyroidism, mitral valve prolapse, recent admission for pneumonia. PAST SURGICAL HISTORY: Hysterectomy, oophorectomy, breast biopsy x2, appendicectomy, cataract surger y, recent history of piriformis muscle torn on the right hip. ADDITIONAL INFORMATION: This patient was having hip pain, which was initially on the right side and that is why the patient saw [facility]. Subsequently, patient wa s referred to physical therapy, and after physical therapy, patient's pain gotten worse and now patisierra bean also has on the left side hip pain. Because of this hip pain, patient is pretty much remaining in the bed. She is not ambulatory lately. FAMILY HISTORY: Mother in her 90s. She had dementia. Father in his 50s and he f rom his heart condition. REVIEW OF SYSTEMS: The following complete review of systems was negative, unless otherwise mentioned in the HPI or below: Constitutional: Weight loss or gain, ability to conduct usual activities. Sk in: Rash, itching. Eyes: Double vision, pain. ENT/Mouth: Nose bleeding, neck stiffness, pain, te nderness. Cardiovascular: Palpitations, dyspnea on exertion, orthopnea. Respiratory: Shortness of breath, wheezing, cough, hemoptysis, fever, or night sweats. Gastrointestinal: Poor appetite, abdo freya pain, heartburn, nausea, vomiting, constipation, or diarrhea. Genitourinary: Urgency, frequen cy, dysuria, nocturia. Musculoskeletal: Pain, swelling. Neurologic/Psychiatric: Anxiety, depressi on. Allergy/Immunologic: Skin rash, bleeding tendency. Please see my HPI for pertinent positive an d negative. All other review of systems reviewed and negative except as mentioned in the HPI. SOCIAL HISTORY: Patient lives at home. She is . No history of tobacco, alcohol, or illicit drug abuse. PAST PSYCHIATRIC HISTORY: Reviewed and negative. EMERGENCY ROOM COURSE: The patient was given vancomycin, gentamicin, Levaquin, and IV fluid. PHYSICAL EXAMINATION: VITAL SIGNS: On arrival, blood pressure 100/64, pulse 111, respiratory rate 20, temperature 98.7, sa turation 95% on room air, weight 40.8 kilograms. GENERAL: Patient is currently alert, awake, no obvious acute distress. HEENT: Head: Normocephalic, atraumatic. Eyes: Pupils round and reactive to light. Shrunken eyeba ll. No nystagmus. ENT: Dry mucous membrane, no oral lesion, no pharyngeal erythema, no exudate. NECK: Supple, no JVD, no thyromegaly, no carotid bruit. LUNGS: Scattered rales noted. Coarse breath sound. No accessory muscles of respiration in use. No wheezing, no rhonchi. CARDIAC: S1 and S2, regular, tachycardia, no murmur elicited, no gallop, no rub. ABDOMEN: Soft, bowel sounds present. No epigastric tenderness, no peritoneal sign, no guarding, no rigidity, no rebound, no organomegaly, no mass. BACK EXAMINATION: Unremarkable, no CVA tenderness. EXTREMITIES: Upper extremities, passive movement of all joints are normal. Lower extremities, no ed mt. Good peripheral pulsation, no calf tenderness. SKIN: No skin rash. HEMATOLOGICAL SYSTEM: No lymphadenopathy. PSYCHIATRIC: Normal affect. SIGNIFICANT LABORATORY DATA: EKG showing sinus tachycardia. Chest x-ray reported a persistent round mass density in left mid inferior lung, which shaped peripheral right lateral midlung opacity. CBC: WBC 39.6, hemoglobin 6.1, platelets 373. Currently, WBC 23.1, hemoglobin 11.8, platelets 217. INR 1.3. D-dimer 0.88. BMP: Sodium 130, potassium 3.9, chloride 105, carbon dioxide 14, anion gap 15, BUN 37, creatinine 0.93, glucose 121, calcium 9.0, lactic acid 1.0. LFT: AST 21, ALT 22, alkaline phosphatase 235, albumin 3.4. Cortisol 16.1. BNP 83.5. Lactate dehydrogenase 228. Urinalysis: Le ukocyte esterase small. Stool for guaiac negative. Pelvis CT scan was done recently for her hip pain, which showed bilateral sacral ala insufficiency-ty pe fracture, worse on the right side. ASSESSMENT AND PLAN: 1. Sepsis. Patient has leukocytosis with bandemia, tachycardia, and low-grade fever. Source of inf ection is worsening pneumonia. I appropriate IV antibiotic therapy with vancomycin, Levaquin, and ge ntamicin, and after that her WBC count has some improvement from 39.6 to 23.1. Currently, the patien t is afebrile and she is saturating normal on room air. She is slightly hypotensive and she is getti ng IV fluid. Patient will be kept on vancomycin and Levaquin as per renally adjusted dose. 2. Pneumonia. Patient was recently treated for pneumonia, and based on current chest x-ray, her pne umonia is getting worse. Patient also has new wedge-shaped peripheral right lateral midlung zone opa city. At this point, differential is lung cancer versus pulmonary infarction from thromboembolic dis order. Patient is mostly bed bound and she is at risk for pulmonary embolism. She is allergic to IO DINE. Currently, renal function is normal. Ventilation perfusion scan may not give appropriate inte rpretation given abnormal chest x-ray. We will prefer to have CT angiography done to rule out thromb oembolic disorder as well as further evaluation of lung pathology. We will consult Dr. Guevara, on-c all physician neonatology. We will prepare for CT angiogram for iodine preparation as per radiology protocol and we will possibly do CT angiogram if Pulmonary okay. Meanwhile, I will continue with vancomycin and Levaquin for pneumonia. We will also continue the DuoNeb every 6 hourly p.r.n. and Mucinex 600 m g twice daily. We will follow up on culture result. 3. Anemia, normocytic-normochromic, acute, symptomatic. Her hemoglobin on admission 6.1, but after 2 units of blood transfusion, her hemoglobin is 11.8. She does not have any blood loss from any site based on history. I doubt 6.1 number originally was right, because after 2 units of blood transfusi on, number should be 8.1, but currently 11.8, so maybe initial reading was false. Stool for guaiac i s negative. At this point, we will consult Gastroenterology for evaluation. The patient is not inte rested in going for endoscopic evaluation at this point. We will continue Protonix 40 mg p.o. daily. 4. Oropharyngeal dysphagia. Speech therapy again consulted. She had a modified barium swallow eval uation last time. We will continue diet as per Speech Therapy recommendation. 5. Dehydration. Patient will be given IV fluid, NS at 100 mL per hour. We will repeat BMP tomorrow . 6. Hyponatremia. The patient clinically appeared dehydrated, and after IV fluid, her sodium is impr yudith. We will continue gentle IV fluid today. 7. Elevated D-dimer. As mentioned above, we will try to do CT angiogram rather than V/Q scan. 8. Leukocytosis with bandemia, most likely related with infection from pneumonia, but we will check urinalysis, urine culture, and we will also try to send stool for Clostridium difficile given recent antibiotic exposure. The patient is already on broad-spectrum antibiotic therapy. 9. Hypothyroidism. Continue Synthroid 100 mcg p.o. daily. 10. Gastroesophageal reflux disease with a history of esophageal stricture. Continue Protonix 40 mg p.o. daily. 11. Deep venous thrombosis prophylaxis, Lovenox 40 mg subcutaneous daily. 12. Gastrointestinal prophylaxis, Protonix 40 mg p.o. daily. CODE STATUS: The patient is FULL CODE. Patient's is surrogate decision maker. Disposition plan based on clinical course. We are expecting patient's stay in hospital more than 2 m idnights. Plan of care discussed with the patient and her daughter at bedside extensively and answer ed all questions.
[2017-12-18] MEDS: Sodium Chloride 0.9% 1,000 ML IV SCH (22:03)
--- NOTE | 2017-12-18 22:26 | CON ---
DATE OF CONSULTATION: 12/18/2017 HISTORY OF PRESENT ILLNESS: The patient is an 87-year-old female well known to me from a l olayinka history of multiple abdominal complaints. She was last seen by me in the outpatient setting in 01/2017 for diarrhea and abdominal pain. Subsequently, however, these resolved by the time she was se en and nothing further was performed. She has undergone an EGD, the last being in 11/2014 for dyspha jonathan and she had a benign-appearing stricture in the upper esophagus. This was dilated with a 54-Fren ch Aranda dilator. She had a single mucosal papule noted in the stomach. No other abnormalities. Her dysphagia resolved after dilatation. She has a large hiatal hernia as well. She has been seen b y Speech Pathology and they have seen her here. Her previous Speech Pathology from 12/01/2017 showed old material in the airway. She was recommended she have mechanical soft. PAST MEDICAL HISTORY: Includes Sjogren syndrome, hiatal hernia, history of esophageal stricture. PAST SURGICAL HISTORY: Includes hysterectomy, oophorectomy, appendectomy, cataracts, hip surgery. SOCIAL HISTORY: Does not smoke or drink. FAMILY HISTORY: Negative for GI or liver disease. ALLERGIES: The patient has a long list of allergies. See electronic medical record for that list. REVIEW OF SYSTEMS: Constitutional: No fever or chills. Positive for large amount of weight loss. Eyes: No blurred vision or double vision. ENT: No sore throat or earaches. Positive for dry mouth . Positive for dysphagia. Chest: No cough or shortness of breath. Cardiovascular: No chest pain or palpitations. Gastrointestinal: See above. Genitourinary: No hematuria or dysuria. Musculoske letal: No joint pain or muscle weakness. Skin: No rashes. Neurologic: No new seizure activity. PHYSICAL EXAMINATION: GENERAL: Shows a thin, frail, elderly female in no acute distress. VITAL SIGNS: Temperature 98.6, pulse 72, respiratory rate 18, blood pressure 98/52. ASSESSMENT: 1. Pneumonia. 2. Anemia - suspect chronic disease. 3. Dysphagia. 4. History of esophageal stricture. RECOMMENDATIONS: EGD and possible dilatation tomorrow.
--- NOTE | 2017-12-19 01:09 | CON ---
DATE OF CONSULTATION: 12/18/2017 SERVICE: Pulmonary Medicine. REASON FOR CONSULTATION: Pneumonia, recurrent. HISTORY OF PRESENT ILLNESS: The patient is an 87-year-old white female with past medical history significant for oropharyngeal dysphagia. She also has presbyesophagus. She recently had a swallow study, which did not demonstrate any significant aspiration. That being said, she has been fighting a couple of issues recently. She has had a lot of pain. She also had frequent bouts of nausea. She has been increasing use of Phenergan recently, which has caused her to be extra sleepy. She sleeps flat. She also has bad reflux disease. She came into the hospital about a month ago with onset of pneumonia. This was treated and she got 100% better. Her strength was slower to improve. Over the past week, however, she was walking and ambulating and her strength was returning very slowly. Three days ago, she started having some increasing nausea. This prompted her once again to use some Phenergan. On the day of presentation, she woke up with fevers, increasing cough, and pleuritic chest discomfort. She presented to the emergency department, which demonstrated another pneumonia. She was placed on broad-spectrum antibiotics and she is already starting to feel a little bit better. PAST MEDICAL HISTORY: 1. COPD. 2. Sjogren syndrome. 3. Gastroesophageal reflux disease. 4. History of peptic ulcers. 5. Hypothyroidism. 6. Mitral valve prolapse. 7. Esophageal stricture. PAST SURGICAL HISTORY: 1. Hysterectomy. 2. Oophorectomy. 3. Breast biopsy x2. 4. Appendectomy. 5. Cataract surgery. 6. Nasal flap. FAMILY HISTORY: Noncontributory. SOCIAL HISTORY: Negative for alcohol, tobacco, or illicit drug use. She currently lives with her family. REVIEW OF SYSTEMS: General, head, ears, eyes, nose, throat, cardiovascular, respiratory, GI, , musculoskeletal, neurologic, and skin is negative except as mentioned in the HPI. PHYSICAL EXAMINATION: VITAL SIGNS: Afebrile currently, pulse 89, blood pressure 116/59, respirations 16, saturation 95% on room air. GENERAL: The patient is awake, alert, in no apparent distress. LUNGS: Excellent air entry without prolonged expiratory phase, wheezing, rhonchi, or crackles. HEART: Normal rate, regular. ABDOMEN: Soft, nontender, nondistended. Bowel sounds are positive. MUSCULOSKELETAL: No cyanosis or clubbing. No pitting in the bilateral lower extremities. NEUROLOGIC: Grossly nonfocal. LABORATORY DATA: WBC is down trending to 23.1, hemoglobin 11.8, platelets 217, 000. On presentation, her hemoglobin was 6.1, but her baseline is 10.4 from just a couple days ago. Basic metabolic profile is completely unremarkable. Liver function studies are unremarkable, total bilirubin 1.4. BNP 83. Urinalysis is unremarkable. IMAGING: Chest x-ray demonstrates a right upper lobe infiltrate in a lateral distribution. She also has a more well defined left mid lung zone pulmonary infiltrate that is taking on more of a mass-like appearance. ASSESSMENT: 1. Healthcare-associated pneumonia. 2. Gastroesophageal reflux disease with hiatal hernia. 3. Chronic obstructive pulmonary disease with no current exacerbation. 4. Recent weight loss (nearly 20 pounds over the past 1 month). 5. Sjogren syndrome. DISCUSSION AND PLAN: The patient is now having recurrent pneumonia. I agree with healthcare-associated pneumonia coverage. We will send for a CT scan of the chest so that we can further clarify whether or not there is endobronchial disease or foreign body in the lung, which is precipitating more pneumonias. My suspicion is that the patient is taking significant amounts of medications for her nausea, causing her to become extra sleepy. This may be resulting in increased inspissated mucus and abdominal contents that are setting up these recurrent pneumonias. We talked a little bit about acid reflux precautions. Hopefully, we do not find any endobronchial diseases. She has an allergy to dye. As such, we will need to schedule a couple doses of prednisone between now and her study. Pulmonary Critical Care will continue to follow. 70 minutes have been devoted to this patient in various activities. I personally reviewed all imaging studies and laboratory data noted within this document. For fifty percent of this time, I was interacting with the patient at the bedside or coordinating care with the care team. For the remainder of the time I was immediately available to the patient in the hospital unit. YOBANY
[2017-12-19] MEDS: Vancomycin HCl 750 MG in Sodium Chloride 0.9% 250 ML 250 ML IVPB SCH (03:52)
[2017-12-19 05:44] LABS: #Eosinphils 0.1 thou/uL (0.0-0.7); #Lymphocytes 1.3 thou/uL (1.20-3.40); #Neutrophils 14.5 thou/uL (1.40-6.50); %Basophils 0.2 % (0.0-1.0); %Eosinophils 0.4 % (0.0-10.0); %Lymphocytes 7.9 % (21.0-51.0); %Monocytes 6.1 % (0.0-10.0); %Neutrophils 85.5 % (42.0-75.0); Hemoglobin 11.8 g/dL (12.0-16.0); Mean Corpuscular HGB CONC 33.8 g/dL (32.0-36.0); Mean Corpuscular Volume 88.7 fl (81.0-99.0); Mean Platelet Volume 7.5 fL (7.4-10.4); Platelet Count 219 thou/uL (130-400); RBC Distribution Width 13.7 % (11.5-14.5); Red Blood Cell (RBC) Count 3.91 mill/uL (4.20-5.40); White Blood Cell (WBC) Count 16.9 thou/uL (4.8-10.8)
[2017-12-19 05:51] LABS: ALT (SGPT) 18 U/L (8-55); AST (SGOT) 16 U/L (5-34); Albumin 2.7 g/dL (3.4-4.8); Alkaline Phosphatase 168 U/L (40-150); Anion Gap 8 mmol/L (10-20); BUN (Urea Nitrogen) 22 mg/dL (9.8-20.1); Bilirubin, Total 1.2 mg/dL (0.2-1.2); Calc. Creatinine Clearance 42 mL/min (70-130); Calcium 8.6 mg/dL (7.8-10.44); Carbon Dioxide 16 mmol/L (23-31); Chloride 116 mmol/L (98-107); Estimated GFR-MDRD 76; Globulin 3.2 g/dL (2.4-3.5); Glucose 92 mg/dL (83-110); Potassium 3.6 mmol/L (3.5-5.1); Protein, Total 5.9 g/dL (6.0-8.3); Sodium 136 mmol/L (136-145)
[2017-12-19] MEDS ORDERED: predniSONE 50 MG TAB PO SCH ×2 (06:00→16:00)
[2017-12-19] MEDS: Levothyroxine Sodium 100 MCG TAB PO SCH (06:20)
[2017-12-19] MEDS ORDERED: Promethazine HCl 25 MG/ML VIAL ONE (08:53)
[2017-12-19] MEDS ORDERED: PROPOFOL 40 ML ONE ×2 (08:58)
[2017-12-19] MEDS ORDERED: Ondansetron HCl/PF 4 MG/2 ML Vial IVP PRN (09:25)
[2017-12-19] MEDS ORDERED: Promethazine HCl 25 MG/ML VIAL SLOW IVP PRN (09:25)
--- NOTE | 2017-12-19 09:56 | OP ---
PREOPERATIVE DIAGNOSIS: Dysphagia. DESCRIPTION OF PROCEDURE: After informed consent was obtained, the patient was placed in the left la teral decubitus position. Anesthesia was administered per the Anesthesia Department. Forward-viewin g endoscope was inserted into the esophagus under direct visualization with ease and passed to the se cond portion of the duodenum with ease. Second portion of the duodenum and duodenal bulb were normal . The pylorus, antrum, body, fundus, and cardia were normal except for a large hiatal hernia. In th e cardia of the stomach, she had a small 1 cm polyp that was pedunculated. It was biopsied, but not removed. The esophagus was essentially normal. A 52 Aranda dilator was passed with little or no re sistance until the Aranda reach the hiatal hernia and then it was resistant, and it was not passed c ompletely. Reinsertion of the endoscope showed no proximal changes to the esophagus. ASSESSMENT: 1. Normal esophagus. 2. Large hiatal hernia. 3. 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 4. Otherwise normal esophagogastroduodenoscopy. RECOMMENDATIONS: 1. Continue to evaluate and treat for oropharyngeal dysphagia per Speech pathology. 2. Await histopathology.
[2017-12-19] MEDS ORDERED: Promethazine HCl 25 MG/ML VIAL SLOW IVP SCH (10:30)
[2017-12-19] MEDS ORDERED: predniSONE 20 MG TAB PO SCH (11:00)
--- NOTE | 2017-12-19 11:28 | PDOC.PN ---
- Subjective Encounter Start Date: 12/19/17 Encounter Start Time: 15:21 -: old records requested/rev Patient seen and examined for pneumonia No new complaints. No overnight events has right side chest pain - Objective Resuscitation Status: Resuscitation Status FULL:Full Resuscitation MAR Reviewed: Yes Vital Signs & Weight: Vital Signs (12 hours) Temp Pulse Resp BP BP Pulse Ox 12/19/17 08:00 98.3 F 91 20 128/77 91 L 12/19/17 04:00 98.5 F 90 18 97/57 L 94 L 12/18/17 23:35 99.5 F 98 20 98/58 L 90 L Weight Admit Weight 105 lb 9.623 oz Weight 105 lb 9.623 oz I&O: 12/18/17 12/19/17 12/20/17 06:59 06:59 06:59 Intake Total 0 1578 Balance 0 1578 Result Diagrams: 12/19/17 04:42 12/19/17 04:42 EKG Reviewed by me: Yes Phys Exam - Physical Examination Constitutional: NAD HEENT: PERRLA, moist MMs, sclera anicteric Neck: no JVD, supple Respiratory: no wheezing, no rhonchi Cardiovascular: RRR, no significant murmur, no rub Gastrointestinal: soft, non-tender, no distention, positive bowel sounds Musculoskeletal: no edema, pulses present Neurological: non-focal, normal sensation Psychiatric: normal affect, A&O x 3 Skin: no rash, normal turgor Dx/Plan (1) Pneumonia Code(s): J18.9 - PNEUMONIA, UNSPECIFIED ORGANISM Status: Acute Comment: recurrent, healthcare associated, bacterial (2) Anemia Code(s): D64.9 - ANEMIA, UNSPECIFIED Status: Acute Qualifiers: Anemia type: unspecified type Qualified Code(s): D64.9 - Anemia, unspecified Comment: S/P 2 unit PRBC given (3) Dehydration Code(s): E86.0 - DEHYDRATION Status: Resolved (4) Hyponatremia Code(s): E87.1 - HYPO-OSMOLALITY AND HYPONATREMIA Status: Resolved (5) Sepsis Code(s): A41.9 - SEPSIS, UNSPECIFIED ORGANISM Status: Acute Qualifiers: Sepsis type: sepsis due to unspecified organism Qualified Code(s): A41.9 - Sepsis, unspecified organism (6) GERD (gastroesophageal reflux disease) Code(s): K21.9 - GASTRO-ESOPHAGEAL REFLUX DISEASE WITHOUT ESOPHAGITIS Status: Chronic Qualifiers: Esophagitis presence: without esophagitis Qualified Code(s): K21.9 - Gastro -esophageal reflux disease without esophagitis (7) H/O hiatal hernia Code(s): Z87.19 - PERSONAL HISTORY OF OTHER DISEASES OF THE DIGESTIVE SYSTEM Status: Chronic (8) HTN (hypertension) Code(s): I10 - ESSENTIAL (PRIMARY) HYPERTENSION Status: Chronic Qualifiers: (9) History of esophageal stricture Code(s): Z87.19 - PERSONAL HISTORY OF OTHER DISEASES OF THE DIGESTIVE SYSTEM Status: Chronic Comment: last dilatation was 1 yr back (10) Hypothyroidism Code(s): E03.9 - HYPOTHYROIDISM, UNSPECIFIED Status: Chronic Qualifiers: - Plan cont current plan of care, plan discussed w/ family, continue antibiotics, respiratory therapy * as per GI today s/p EGD and found with hiatal hernia, does not required any dilatation * will continue diet as per speech therapy recommendation * as per pulmonary will get CT chest with contrast after contrast allergy preparation * bronchoscopy decision will defer to pulmonary * medication reviewed as below * symptomatic treatment * continue vancomycin, levaquin for now. * wbc count continue to improve * add diflucan for prophylaxis for yeast infection per pt request Review of Systems - Review of Systems Constitutional: negative: fever, chills, sweats, weakness, malaise, other ENT: negative: Ear Pain, Ear Discharge, Nose Pain, Nose Discharge, Nose Congestion, Mouth Pain, Mouth Swelling, Throat Pain, Throat Swelling, Other Respiratory: Cough. negative: Dry, Shortness of Breath, Hemoptysis, SOB with Excertion, Pleuritic Pain, Sputum, Wheezing Cardiovascular: chest pain. negative: palpitations, orthopnea, paroxysmal nocturnal dyspnea, edema, light headedness, other Gastrointestinal: negative: Nausea, Vomiting, Abdominal Pain, Diarrhea, Constipation, Melena, Hematochezia, Other Genitourinary: negative: Dysuria, Frequency, Incontinence, Hematuria, Retention , Other Musculoskeletal: negative: Neck Pain, Shoulder Pain, Arm Pain, Back Pain, Hand Pain, Leg Pain, Foot Pain, Other Skin: negative: Rash, Lesions, Isidoro, Bruising, Other - Medications/Allergies Allergies/Adverse Reactions: Allergies Allergy/AdvReac Type Severity Reaction Status Date / Time amoxicillin [From Larotid] Allergy Verified 12/18/17 02:58 aspirin [From Percodan] Allergy Verified 12/18/17 02:58 codeine Allergy Verified 12/18/17 02:58 esomeprazole [From Nexium] Allergy Verified 12/18/17 02:58 esomeprazole magnesium Allergy Verified 12/18/17 02:58 [From Nexium] famotidine [From Pepcid] Allergy Verified 12/18/17 02:58 hydrocodone Allergy Verified 12/18/17 02:58 hydrocodone bitartrate Allergy Verified 12/18/17 02:58 [From Vicodin] ibuprofen Allergy Verified 12/18/17 02:58 indomethacin [From Indocin] Allergy Verified 12/18/17 02:58 indomethacin sodium Allergy Verified 12/18/17 02:58 [From Indocin] iodine Allergy Verified 12/18/17 02:58 ketorolac [From Toradol] Allergy Verified 12/18/17 02:58 lactase [From Dairy Aid] Allergy Verified 12/18/17 02:58 lactose Allergy Verified 12/18/17 02:58 meclofenamate sodium Allergy Verified 12/18/17 02:58 [From Meclomen] morphine Allergy Verified 12/18/17 02:58 naproxen Allergy Verified 12/18/17 02:58 nitrofurantoin Allergy Verified 12/18/17 02:58 [From Macrodantin] oxycodone [From Percodan] Allergy Verified 12/18/17 02:58 Penicillins Allergy Verified 12/18/17 02:58 phenazopyridine Allergy Verified 12/18/17 02:58 [From Pyridium] povidone-iodine Allergy Verified 12/18/17 02:58 [From Betadine] propoxyphene [From Darvon] Allergy Verified 12/18/17 02:58 propoxyphene HCl Allergy Verified 12/18/17 02:58 [From Darvon] propranolol [From Inderal LA] Allergy Verified 12/18/17 02:58 soap [From Betadine] Allergy Verified 12/18/17 02:58 Sulfa (Sulfonamide Allergy Verified 12/18/17 02:58 Antibiotics) sulfamethoxazole Allergy Verified 12/18/17 02:58 [From Septra] tetracycline Allergy Verified 12/18/17 02:58 tramadol Allergy Verified 12/18/17 02:58 trimethoprim [From ] Allergy Verified 12/18/17 02:58 verapamil Allergy Verified 12/18/17 02:58 Medications: Current Medications Acetaminophen (Tylenol) 650 mg PO Q4H PRN PRN Reason: Headache/Fever or Pain Last Admin: 12/18/17 21:58 Dose: 650 mg Al Hydroxide/Mg Hydroxide (Maalox) 30 ml PO Q6H PRN PRN Reason: Heartburn or Indigestion Albuterol/Ipratropium (Duoneb) 3 ml NEB QID PRN PRN Reason: SOB &/or Wheezing Last Admin: 12/18/17 23:35 Dose: 3 ml Aspirin (Aspirin Chewable) 81 mg PO DAILY [facility] Last Admin: 12/18/17 09:58 Dose: 81 mg Bisacodyl (Dulcolax) 10 mg PA Q24H PRN PRN Reason: Constipation Diphenhydramine HCl (Benadryl) 50 mg PO 0700 [facility] Stop: 12/20/17 07:01 Enoxaparin Sodium (Lovenox) 40 mg SC 0900 [facility] Last Admin: 12/18/17 09:59 Dose: 40 mg Guaifenesin (Robitussin Sf) 200 mg PO Q4H PRN PRN Reason: Cough Guaifenesin (Mucinex) 600 mg PO Q12HR [facility] Last Admin: 12/18/17 21:58 Dose: 600 mg Hydralazine HCl (Apresoline) 10 mg SLOW IVP Q4H PRN PRN Reason: Systolic BP > 180 Levofloxacin 750 mg/ Device 150 mls @ 100 mls/hr IVPB 0100 [facility] Vancomycin HCl 750 mg/ Sodium (Chloride) 250 mls @ 250 mls/hr IVPB 0300 [facility] Last Admin: 12/19/17 03:52 Dose: 250 mls Sodium Chloride (Normal Saline 0.9%) 1,000 mls @ 73 mls/hr IV .[id number] [facility] Last Admin: 12/18/17 22:03 Dose: 1,000 mls Levothyroxine Sodium (Synthroid) 100 mcg PO 0600 [facility] Last Admin: 12/19/17 06:20 Dose: 100 mcg Loratadine (Claritin) 10 mg PO DAILYPRN PRN PRN Reason: Sinus Symptoms Magnesium Hydroxide (Milk Of Magnesium) 30 ml PO DAILYPRN PRN PRN Reason: Constipation Mineral Oil/White Petrolatum (Eucerin Cream) 0 gm TOP BIDPRN PRN PRN Reason: Dry Skin Miscellaneous Medication (Pharmacy To Dose) 1 each IVPB .VANCOMYCIN PRN PRN Reason: Pharmacy to dose Ondansetron HCl (Zofran Odt) 4 mg SL Q6H PRN PRN Reason: Nausea/Vomiting Ondansetron HCl (Zofran) 4 mg IVP Q6H PRN PRN Reason: Nausea/Vomiting Ondansetron HCl (Pacu-Zofran) 4 mg IVP ONE PRN PRN Reason: Nausea/Vomiting Stop: 12/19/17 12:25 Pantoprazole Sodium (Protonix) 40 mg PO DAILY [facility] Last Admin: 12/18/17 09:58 Dose: 40 mg Phenol (Chloraseptic [place] 180 Ml Bot) 0 ml PO PRN PRN PRN Reason: Sore Throat Prednisone (Prednisone) 50 mg PO 0100,0700,1900 [facility] Stop: 12/20/17 07:01 Promethazine HCl (Pacu-Phenergan) 6.25 mg SLOW IVP ONE PRN PRN Reason: Nausea/Vomiting Stop: 12/19/17 12:25 Promethazine HCl (Phenergan) 3.375 mg SLOW IVP NOW [facility] Stop: 12/19/17 12:30 Raloxifene HCl (Evista) 60 mg PO DAILY [facility] Last Admin: 12/18/17 09:59 Dose: 60 mg Saccharomyces Boulardii (Florastor) 250 mg PO DAILY [facility] Last Admin: 12/18/17 09:58 Dose: 250 mg Senna (Senokot) 2 tab PO HSPRN PRN PRN Reason: Constipation Sodium Chloride ([place]ver Nasal [place] 0.65%) 0 ml EA NARE QIDPRN PRN PRN Reason: Nasal Congestion
[2017-12-19] MEDS: Ondansetron ODT 4 MG TAB SL PRN ×2 (11:50→20:01)
--- NOTE | 2017-12-19 12:21 | PRG ---
DATE OF SERVICE: 12/19/2017 Samantha Bonds is in no distress. She is nauseated. PHYSICAL EXAMINATION: VITAL SIGNS: She is afebrile, heart rate 100, respiratory rates in the 10-20 range. Oximetry is 93 on room air, blood pressure 107/51. LUNGS: Clear. LABORATORY: White count 16.9, hemoglobin 11.8, platelets 219,000. Sodium 136, potassium 3.6, chlori de 116, bicarbonate 16, BUN 22, creatinine 0.7. IMPRESSION: 1. Nausea. I have asked the nurse to give her some sublingual Zofran. 2. Status post upper endoscopy with a gastric polyp that was biopsied. No bleeding was identified. No obstruction was encountered. 3. History of Sjogren's. 4. History of reflux disease. 5. History of ulcer disease in the past. 6. History of esophageal stricture in the past, none on this endoscopy. Because of her radiographic abnormalities a CT was ordered for tomorrow. She is currently being theodore azucena for pneumonia. We will continue to follow.
[2017-12-19] MEDS: Saccharomyces boulardii 250 MG CAP PO SCH (13:31)
[2017-12-19] MEDS: guaiFENesin ER 600 MG TAB PO SCH ×2 (13:31→21:17)
[2017-12-19] MEDS: Enoxaparin Sodium 40 MG/0.4 ML SYRINGE SC SCH (13:31)
[2017-12-19] MEDS: Sodium Chloride 0.9% 1,000 ML IV SCH ×2 (13:38→21:18)
[2017-12-19] MEDS ORDERED: Lidocaine 1% PF 5 ML VIAL ONE (15:44)
[2017-12-19] MEDS ORDERED: PROPOFOL 200 MG/20 ML VIAL ONE (15:44)
[2017-12-19] MEDS ORDERED: diphenhydrAMINE 50 MG CAP PO SCH (16:00)
[2017-12-19] MEDS: predniSONE 50 MG TAB PO SCH (21:18)
[2017-12-20] MEDS: predniSONE 50 MG TAB PO SCH ×2 (00:54→07:38)
[2017-12-20] MEDS: Vancomycin HCl 750 MG in Sodium Chloride 0.9% 250 ML 250 ML IVPB SCH (03:10)
[2017-12-20] MEDS: Levothyroxine Sodium 100 MCG TAB PO SCH (05:16)
[2017-12-20 05:45] LABS: Anion Gap 7 mmol/L (10-20); BUN (Urea Nitrogen) 18 mg/dL (9.8-20.1); Calc. Creatinine Clearance 46 mL/min (70-130); Calcium 8.2 mg/dL (7.8-10.44); Carbon Dioxide 17 mmol/L (23-31); Chloride 114 mmol/L (98-107); Estimated GFR-MDRD 83; Glucose 82 mg/dL (83-110); Potassium 3.9 mmol/L (3.5-5.1); Sodium 134 mmol/L (136-145)
[2017-12-20] MEDS ORDERED: diphenhydrAMINE 50 MG CAP PO SCH (07:00)
--- NOTE | 2017-12-20 09:24 | PDOC.PN ---
- Subjective Encounter Start Date: 12/20/17 Encounter Start Time: 07:50 Patient seen and examined for pneumonia. No overnight events pt is concerned about having contrast CT chest c/o eyelid erythema on left - Objective Resuscitation Status: Resuscitation Status FULL:Full Resuscitation MAR Reviewed: Yes Vital Signs & Weight: Vital Signs (12 hours) Temp Pulse Pulse Pulse Resp BP BP 12/20/17 08:02 98 100 101/54 L 110/52 L 12/20/17 04:00 99.3 F 92 15 BP Pulse Ox Pulse Ox Pulse Ox 12/20/17 08:02 93 L 92 L 12/20/17 04:00 112/56 L 92 L Weight Admit Weight 105 lb 9.623 oz Weight 105 lb 9.623 oz I&O: 12/19/17 12/20/17 12/21/17 06:59 06:59 06:59 Intake Total 1578 2421 Balance 1578 2421 Result Diagrams: 12/19/17 04:42 12/20/17 04:47 EKG Reviewed by me: Yes (nsr) Phys Exam - Physical Examination Constitutional: NAD HEENT: PERRLA, moist MMs, sclera anicteric Neck: no JVD, supple Respiratory: no wheezing, no rales, no rhonchi Cardiovascular: RRR, no significant murmur, no rub Gastrointestinal: soft, non-tender, no distention, positive bowel sounds Musculoskeletal: no edema, pulses present Neurological: non-focal, normal sensation, moves all 4 limbs Psychiatric: normal affect, A&O x 3 Skin: no rash, normal turgor Dx/Plan (1) Pneumonia Code(s): J18.9 - PNEUMONIA, UNSPECIFIED ORGANISM Status: Acute Comment: recurrent, healthcare associated, bacterial (2) Anemia Code(s): D64.9 - ANEMIA, UNSPECIFIED Status: Acute Qualifiers: Anemia type: unspecified type Qualified Code(s): D64.9 - Anemia, unspecified Comment: S/P 2 unit PRBC given (3) Dehydration Code(s): E86.0 - DEHYDRATION Status: Resolved (4) Hyponatremia Code(s): E87.1 - HYPO-OSMOLALITY AND HYPONATREMIA Status: Resolved (5) Sepsis Code(s): A41.9 - SEPSIS, UNSPECIFIED ORGANISM Status: Acute Qualifiers: Sepsis type: sepsis due to unspecified organism Qualified Code(s): A41.9 - Sepsis, unspecified organism (6) GERD (gastroesophageal reflux disease) Code(s): K21.9 - GASTRO-ESOPHAGEAL REFLUX DISEASE WITHOUT ESOPHAGITIS Status: Chronic Qualifiers: Esophagitis presence: without esophagitis Qualified Code(s): K21.9 - Gastro -esophageal reflux disease without esophagitis (7) H/O hiatal hernia Code(s): Z87.19 - PERSONAL HISTORY OF OTHER DISEASES OF THE DIGESTIVE SYSTEM Status: Chronic (8) HTN (hypertension) Code(s): I10 - ESSENTIAL (PRIMARY) HYPERTENSION Status: Chronic Qualifiers: (9) History of esophageal stricture Code(s): Z87.19 - PERSONAL HISTORY OF OTHER DISEASES OF THE DIGESTIVE SYSTEM Status: Chronic Comment: last dilatation was 1 yr back (10) Hypothyroidism Code(s): E03.9 - HYPOTHYROIDISM, UNSPECIFIED Status: Chronic Qualifiers: - Plan cont current plan of care, plan discussed w/ family, continue antibiotics, respiratory therapy * add lidocaine patch for her sacral fracture * will defer Contrast CT chest to pulmonary, pt has been prepared for dye allergy but pt is concerned about * will add symbicort 1 puff bid * medication reviewed as below * symptomatic treatment Review of Systems - Review of Systems Constitutional: negative: fever, chills, sweats, weakness, malaise, other Eyes: Eyelid Inflammation. negative: Pain, Vision Change, Conjunctivae Inflammation, Redness, Other ENT: negative: Ear Pain, Ear Discharge, Nose Pain, Nose Discharge, Nose Congestion, Mouth Pain, Mouth Swelling, Throat Pain, Throat Swelling, Other Respiratory: negative: Cough, Dry, Shortness of Breath, Hemoptysis, SOB with Excertion, Pleuritic Pain, Sputum, Wheezing Cardiovascular: negative: chest pain, palpitations, orthopnea, paroxysmal nocturnal dyspnea, edema, light headedness, other Gastrointestinal: negative: Nausea, Vomiting, Abdominal Pain, Diarrhea, Constipation, Melena, Hematochezia, Other Genitourinary: negative: Dysuria, Frequency, Incontinence, Hematuria, Retention , Other Musculoskeletal: negative: Neck Pain, Shoulder Pain, Arm Pain, Back Pain, Hand Pain, Leg Pain, Foot Pain, Other Skin: negative: Rash, Lesions, Isidoro, Bruising, Other - Medications/Allergies Allergies/Adverse Reactions: Allergies Allergy/AdvReac Type Severity Reaction Status Date / Time amoxicillin [From Larotid] Allergy Verified 12/18/17 02:58 aspirin [From Percodan] Allergy Verified 12/18/17 02:58 codeine Allergy Verified 12/18/17 02:58 esomeprazole [From Nexium] Allergy Verified 12/18/17 02:58 esomeprazole magnesium Allergy Verified 12/18/17 02:58 [From Nexium] famotidine [From Pepcid] Allergy Verified 12/18/17 02:58 hydrocodone Allergy Verified 12/18/17 02:58 hydrocodone bitartrate Allergy Verified 12/18/17 02:58 [From Vicodin] ibuprofen Allergy Verified 12/18/17 02:58 indomethacin [From Indocin] Allergy Verified 12/18/17 02:58 indomethacin sodium Allergy Verified 12/18/17 02:58 [From Indocin] iodine Allergy Verified 12/18/17 02:58 ketorolac [From Toradol] Allergy Verified 12/18/17 02:58 lactase [From Dairy Aid] Allergy Verified 12/18/17 02:58 lactose Allergy Verified 12/18/17 02:58 meclofenamate sodium Allergy Verified 12/18/17 02:58 [From Meclomen] morphine Allergy Verified 12/18/17 02:58 naproxen Allergy Verified 12/18/17 02:58 nitrofurantoin Allergy Verified 12/18/17 02:58 [From Macrodantin] oxycodone [From Percodan] Allergy Verified 12/18/17 02:58 Penicillins Allergy Verified 12/18/17 02:58 phenazopyridine Allergy Verified 12/18/17 02:58 [From Pyridium] povidone-iodine Allergy Verified 12/18/17 02:58 [From Betadine] propoxyphene [From Darvon] Allergy Verified 12/18/17 02:58 propoxyphene HCl Allergy Verified 12/18/17 02:58 [From Darvon] propranolol [From Inderal LA] Allergy Verified 12/18/17 02:58 soap [From Betadine] Allergy Verified 12/18/17 02:58 Sulfa (Sulfonamide Allergy Verified 12/18/17 02:58 Antibiotics) sulfamethoxazole Allergy Verified 12/18/17 02:58 [From Septra] tetracycline Allergy Verified 12/18/17 02:58 tramadol Allergy Verified 12/18/17 02:58 trimethoprim [From ] Allergy Verified 12/18/17 02:58 verapamil Allergy Verified 12/18/17 02:58 Medications: Current Medications Acetaminophen (Tylenol) 650 mg PO Q4H PRN PRN Reason: Headache/Fever or Pain Last Admin: 12/18/17 21:58 Dose: 650 mg Al Hydroxide/Mg Hydroxide (Maalox) 30 ml PO Q6H PRN PRN Reason: Heartburn or Indigestion Albuterol/Ipratropium (Duoneb) 3 ml NEB QID PRN PRN Reason: SOB &/or Wheezing Last Admin: 12/18/17 23:35 Dose: 3 ml Aspirin (Aspirin Chewable) 81 mg PO DAILY [facility] Last Admin: 12/19/17 13:30 Dose: 81 mg Bisacodyl (Dulcolax) 10 mg SC Q24H PRN PRN Reason: Constipation Enoxaparin Sodium (Lovenox) 40 mg SC 0900 [facility] Last Admin: 12/19/17 13:31 Dose: 40 mg Fluconazole (Diflucan) 100 mg PO DAILY [facility] Guaifenesin (Robitussin Sf) 200 mg PO Q4H PRN PRN Reason: Cough Guaifenesin (Mucinex) 600 mg PO Q12HR [facility] Last Admin: 12/19/17 21:17 Dose: 600 mg Hydralazine HCl (Apresoline) 10 mg SLOW IVP Q4H PRN PRN Reason: Systolic BP > 180 Levofloxacin 750 mg/ Device 150 mls @ 100 mls/hr IVPB 0100 [facility] Last Admin: 12/20/17 00:54 Dose: 150 mls Vancomycin HCl 750 mg/ Sodium (Chloride) 250 mls @ 250 mls/hr IVPB 0300 [facility] Last Admin: 12/20/17 03:10 Dose: 250 mls Sodium Chloride (Normal Saline 0.9%) 1,000 mls @ 73 mls/hr IV .[id number] [facility] Last Admin: 12/19/17 21:18 Dose: 1,000 mls Levothyroxine Sodium (Synthroid) 100 mcg PO 0600 [facility] Last Admin: 12/20/17 05:16 Dose: 100 mcg Lidocaine (Lidoderm 5% Patch) 1 patch TD DAILY [facility] Loratadine (Claritin) 10 mg PO DAILYPRN PRN PRN Reason: Sinus Symptoms Magnesium Hydroxide (Milk Of Magnesium) 30 ml PO DAILYPRN PRN PRN Reason: Constipation Mineral Oil/White Petrolatum (Eucerin Cream) 0 gm TOP BIDPRN PRN PRN Reason: Dry Skin Miscellaneous Medication (Pharmacy To Dose) 1 each IVPB .VANCOMYCIN PRN PRN Reason: Pharmacy to dose Ondansetron HCl (Zofran Odt) 4 mg SL Q6H PRN PRN Reason: Nausea/Vomiting Last Admin: 12/19/17 20:01 Dose: 4 mg Ondansetron HCl (Zofran) 4 mg IVP Q6H PRN PRN Reason: Nausea/Vomiting Pantoprazole Sodium (Protonix) 40 mg PO DAILY [facility] Last Admin: 12/19/17 13:31 Dose: 40 mg Phenol (Chloraseptic [place] 180 Ml Bot) 0 ml PO PRN PRN PRN Reason: Sore Throat Raloxifene HCl (Evista) 60 mg PO DAILY [facility] Last Admin: 12/19/17 13:31 Dose: 60 mg Saccharomyces Boulardii (Florastor) 250 mg PO DAILY [facility] Last Admin: 12/19/17 13:31 Dose: 250 mg Senna (Senokot) 2 tab PO HSPRN PRN PRN Reason: Constipation Sodium Chloride ([place] Nasal [place] 0.65%) 0 ml EA NARE QIDPRN PRN PRN Reason: Nasal Congestion
[2017-12-20] MEDS ORDERED: Lidocaine Patch Removal 1 EACH TOP SCH (09:30)
[2017-12-20] MEDS ORDERED: Lidocaine 5% Patch TD SCH (09:30)
[2017-12-20] MEDS ORDERED: Promethazine HCl 12.5 MG SUPP PR PRN (09:32)
[2017-12-20] MEDS: Fluconazole 100 MG TAB PO SCH (10:08)
[2017-12-20] MEDS: guaiFENesin ER 600 MG TAB PO SCH ×2 (10:09→20:47)
[2017-12-20] MEDS: Saccharomyces boulardii 250 MG CAP PO SCH (10:09)
[2017-12-20] MEDS: Enoxaparin Sodium 40 MG/0.4 ML SYRINGE SC SCH (10:10)
[2017-12-20 11:07] LABS: Band 18 % (5-11); Eosinophils 3 % (0-10); Hemoglobin 11.2 g/dL (12.0-16.0); Lymphocytes 9 % (21-51); MDiff Complete? YES; Mean Corpuscular HGB CONC 32.4 g/dL (32.0-36.0); Mean Corpuscular Hemoglobin 28.8 pg (27.0-31.0); Mean Corpuscular Volume 88.9 fl (81.0-99.0); Mean Platelet Volume 7.2 fL (7.4-10.4); Monocytes 6 % (0-10); Neutrophil 63 % (42-75); PLT Morphology Comment Appears Adequate; Platelet Count 234 thou/uL (130-400); Polychromasia SLIGHT = 2-3 cells (100X) (0-2/hpf); RBC Distribution Width 13.7 % (11.5-14.5); RBC Morphology Normal; Reactive Lymphocytes 1 % (0-10); Red Blood Cell (RBC) Count 3.89 mill/uL (4.20-5.40); White Blood Cell (WBC) Count 11.7 thou/uL (4.8-10.8)
[2017-12-20] MEDS: Metoclopramide HCl 10 MG TAB PO SCH ×3 (11:32→20:47)
[2017-12-20] MEDS: Acetaminophen 325 MG TAB PO PRN ×2 (11:32→18:23)
--- NOTE | 2017-12-20 11:39 | RAD ---
TWO VIEW CHEST: Comparison: 12-05-17 Indication: Pneumonia. FINDINGS: There has been development of a wedge shaped region of consolidation with associated lucency at the l ateral right midlung zone. There is interstitial prominence bilaterally. There is newly developed ple ural based density occupying the infralateral right hemithorax which obscures the costophrenic sulcus . This has a convex margin and may relate to complex pleural fluid collection. Cardiac silhouette is prominent. There is pulmonary vascular congestion. IMPRESSION: Suspicion for cavitary consolidation at the lateral right mid lung zone. This could related to necrot izing pneumonia. Alternatively an internal hematocele and/or prominent air bronchograms could produce a similar appearance. There is complex morphology of pleural fluid at the inferior right chest which may relate to an assoc iated empyema. Recommend follow up with contrast enhanced CT thorax for more definitive evaluation. POS: SURAJ
--- NOTE | 2017-12-20 12:18 | PRG ---
DATE OF SERVICE: 12/20/2017 SUBJECTIVE: The patient is doing well. She is able to eat, it is more of an appetite problem. She does not have much of an appetite. OBJECTIVE: VITAL SIGNS: Temperature 99.3, pulse 92, respiratory rate 15, blood pressure 101/54. HEENT: Unremarkable. CHEST: Clear. CARDIOVASCULAR: Regular rate and rhythm. ABDOMEN: Benign. LABORATORY DATA: Shows a white blood cell count of 11.7, hemoglobin 11.2. Chemistry shows sodium 13 4, chloride 114, CO2 17, glucose 82. Pathology is pending. ASSESSMENT: 1. Pneumonia. 2. Anemia of chronic disease. 3. Oropharyngeal dysphagia - working with speech pathology. RECOMMENDATIONS: 1. May consider starting an appetite stimulant. 2. We will sign off.
--- NOTE | 2017-12-20 15:52 | HP ---
DATE OF SERVICE: 12/20/2017 SUBJECTIVE: This morning, she is still nauseated. She is less short of breath. She is weak. OBJECTIVE: VITAL SIGNS: Sats are 90% on room air, blood pressure 110/52, respiration 18. CHEST: Bilateral rhonchi and crackles. CARDIAC: Normal S1, S2. No gallops. ABDOMEN: Soft. No masses. LABORATORY DATA: Electrolytes are normal. White count has decreased from 39,000 to 16,000. So far, cultures are negative. IMPRESSION: Recurrent aspiration pneumonia, status post esophagogastroduodenoscopy by GI. PLAN: Switch her to anti-Staph and anti-gram negative antibiotic. At this time, she refused to have a CT done. Order a chest x-ray. We will consider a CT without contrast at later time. Treat nausea. Otherwise, continue supportive care. We will follow.
[2017-12-20] MEDS: Sodium Chloride 0.9% 1,000 ML IV SCH (16:53)
[2017-12-20] MEDS: SYMBICORT INH SCH (19:26)
[2017-12-20] MEDS: Linezolid 600 MG TAB PO SCH (20:47)
[2017-12-21 02:17] LABS: #Eosinphils 0.1 thou/uL (0.0-0.7); #Lymphocytes 1.1 thou/uL (1.20-3.40); #Monocytes 1.1 thou/uL (0.11-0.59); #Neutrophils 8.6 thou/uL (1.40-6.50); %Basophils 0.3 % (0.0-1.0); %Eosinophils 1.2 % (0.0-10.0); %Lymphocytes 10.3 % (21.0-51.0); %Monocytes 10.1 % (0.0-10.0); Hemoglobin 11.2 g/dL (12.0-16.0); Mean Corpuscular HGB CONC 33.9 g/dL (32.0-36.0); Mean Corpuscular Hemoglobin 30.2 pg (27.0-31.0); Mean Corpuscular Volume 89.2 fl (81.0-99.0); Mean Platelet Volume 6.7 fL (7.4-10.4); Platelet Count 264 thou/uL (130-400); RBC Distribution Width 13.6 % (11.5-14.5); Red Blood Cell (RBC) Count 3.71 mill/uL (4.20-5.40)
[2017-12-21 02:38] LABS: Vancomycin, Trough 8.1 ug/mL
[2017-12-21 03:12] LABS: Anion Gap 9 mmol/L (10-20); BUN (Urea Nitrogen) 19 mg/dL (9.8-20.1); Calc. Creatinine Clearance 42 mL/min (70-130); Calcium 8.4 mg/dL (7.8-10.44); Carbon Dioxide 19 mmol/L (23-31); Chloride 113 mmol/L (98-107); Estimated GFR-MDRD 76; Glucose 94 mg/dL (83-110); Potassium 3.7 mmol/L (3.5-5.1); Sodium 137 mmol/L (136-145)
[2017-12-21] MEDS: Sodium Chloride 0.9% 1,000 ML IV SCH (05:48)
[2017-12-21] MEDS: Levothyroxine Sodium 100 MCG TAB PO SCH (05:49)
[2017-12-21] MEDS: SYMBICORT INH SCH ×2 (07:51→19:36)
[2017-12-21] MEDS: Metoclopramide HCl 10 MG TAB PO SCH ×4 (08:41→20:13)
[2017-12-21] MEDS: Fluconazole 100 MG TAB PO SCH (08:42)
[2017-12-21] MEDS: Enoxaparin Sodium 40 MG/0.4 ML SYRINGE SC SCH (08:42)
[2017-12-21] MEDS: Lidocaine 5% Patch TD SCH (08:43)
[2017-12-21] MEDS: Linezolid 600 MG TAB PO SCH ×2 (08:43→20:13)
[2017-12-21] MEDS: guaiFENesin ER 600 MG TAB PO SCH ×2 (08:43→20:13)
[2017-12-21] MEDS: Saccharomyces boulardii 250 MG CAP PO SCH (08:43)
--- NOTE | 2017-12-21 09:53 | PRG ---
DATE OF SERVICE: 12/21/2017 She is awake, alert, responsive. PHYSICAL EXAMINATION: VITAL SIGNS: Her vital signs are stable with a temperature of 99.8, pulse 101. Sats 96% on room air , blood pressure 129/60, still coughing up dirty brown sputum. CHEST: Chest revealed bilateral rhonchi and crackles. CARDIAC: Normal S1, S2, no gallops. ABDOMEN: Soft, no masses. LABORATORY: White count 11,000, H&H 11 and 33, platelet count 265, 78 segs. She had a big bandemia yesterday. Electrolytes are normal. A CT chest shows necrotizing pneumonia along with a small pleural effusion along with several nodular densities of unknown etiology. To note, she has known history of cystic lung disease. The pneumoni a is obviously from aspiration. The pleural effusion is of some concern. The additional nodular den sities that I see mainly in the left lower lung. At this stage, nothing additional to do. Continue antibiotics. IMPRESSION: 1. Necrotizing pneumonia. 2. Pleural effusion. 3. Sjogren syndrome. PLAN: Continue neb treatments, supportive care, Diflucan, Zyvox, Levaquin. I will follow.
--- NOTE | 2017-12-21 10:31 | PDOC.PN ---
- Subjective Encounter Start Date: 12/21/17 Encounter Start Time: 07:40 Patient seen and examined. No new complaints. No overnight events pt is continue to improve - Objective Resuscitation Status: Resuscitation Status FULL:Full Resuscitation MAR Reviewed: Yes Vital Signs & Weight: Vital Signs (12 hours) Temp Pulse Resp BP BP Pulse Ox 12/21/17 07:42 99.8 F H 101 H 18 121/60 97 12/21/17 07:38 106 H 16 93 L 12/21/17 04:00 98.6 F 95 17 113/59 L 93 L 12/20/17 23:49 98.7 F 93 18 100/61 98 Weight Admit Weight 105 lb 9.623 oz Weight 105 lb 9.623 oz I&O: 12/20/17 12/21/17 12/22/17 06:59 06:59 06:59 Intake Total 2421 2076 Balance 2421 2076 Result Diagrams: 12/21/17 02:02 12/21/17 02:02 Radiology Reviewed by me: Yes (CT chest) EKG Reviewed by me: Yes (nsr) Phys Exam - Physical Examination Constitutional: NAD HEENT: PERRLA, moist MMs, sclera anicteric Neck: no JVD, supple Respiratory: no wheezing, no rales, no rhonchi Cardiovascular: RRR, no significant murmur, no rub Gastrointestinal: soft, non-tender, no distention, positive bowel sounds Musculoskeletal: no edema, pulses present Neurological: non-focal, normal sensation, moves all 4 limbs Psychiatric: normal affect, A&O x 3 Skin: no rash, normal turgor Dx/Plan (1) Pneumonia Code(s): J18.9 - PNEUMONIA, UNSPECIFIED ORGANISM Status: Acute Comment: recurrent, healthcare associated, bacterial, necrotizing pneumonia (2) Anemia Code(s): D64.9 - ANEMIA, UNSPECIFIED Status: Acute Qualifiers: Anemia type: unspecified type Qualified Code(s): D64.9 - Anemia, unspecified Comment: S/P 2 unit PRBC given (3) Dehydration Code(s): E86.0 - DEHYDRATION Status: Resolved (4) Hyponatremia Code(s): E87.1 - HYPO-OSMOLALITY AND HYPONATREMIA Status: Resolved (5) Sepsis Code(s): A41.9 - SEPSIS, UNSPECIFIED ORGANISM Status: Acute Qualifiers: Sepsis type: sepsis due to unspecified organism Qualified Code(s): A41.9 - Sepsis, unspecified organism (6) GERD (gastroesophageal reflux disease) Code(s): K21.9 - GASTRO-ESOPHAGEAL REFLUX DISEASE WITHOUT ESOPHAGITIS Status: Chronic Qualifiers: Esophagitis presence: without esophagitis Qualified Code(s): K21.9 - Gastro -esophageal reflux disease without esophagitis (7) H/O hiatal hernia Code(s): Z87.19 - PERSONAL HISTORY OF OTHER DISEASES OF THE DIGESTIVE SYSTEM Status: Chronic (8) HTN (hypertension) Code(s): I10 - ESSENTIAL (PRIMARY) HYPERTENSION Status: Chronic Qualifiers: (9) History of esophageal stricture Code(s): Z87.19 - PERSONAL HISTORY OF OTHER DISEASES OF THE DIGESTIVE SYSTEM Status: Chronic Comment: last dilatation was 1 yr back (10) Hypothyroidism Code(s): E03.9 - HYPOTHYROIDISM, UNSPECIFIED Status: Chronic Qualifiers: (11) Sjogrens syndrome Code(s): M35.00 - SICCA SYNDROME, UNSPECIFIED Status: Chronic - Plan cont current plan of care, continue antibiotics, respiratory therapy * Dc Tele * transfer to medical * antibiotics changed to oral zyvox, diflucan and levaquin * medication reviewed as below * symptomatic treatment * will consider discharge when pulmonary clears. Review of Systems - Review of Systems Eyes: negative: Pain, Vision Change, Conjunctivae Inflammation, Eyelid Inflammation, Redness, Other ENT: negative: Ear Pain, Ear Discharge, Nose Pain, Nose Discharge, Nose Congestion, Mouth Pain, Mouth Swelling, Throat Pain, Throat Swelling, Other Respiratory: negative: Cough, Dry, Shortness of Breath, Hemoptysis, SOB with Excertion, Pleuritic Pain, Sputum, Wheezing Cardiovascular: negative: chest pain, palpitations, orthopnea, paroxysmal nocturnal dyspnea, edema, light headedness, other Gastrointestinal: negative: Nausea, Vomiting, Abdominal Pain, Diarrhea, Constipation, Melena, Hematochezia, Other Genitourinary: negative: Dysuria, Frequency, Incontinence, Hematuria, Retention , Other Musculoskeletal: negative: Neck Pain, Shoulder Pain, Arm Pain, Back Pain, Hand Pain, Leg Pain, Foot Pain, Other Skin: negative: Rash, Lesions, Isidoro, Bruising, Other - Medications/Allergies Allergies/Adverse Reactions: Allergies Allergy/AdvReac Type Severity Reaction Status Date / Time amoxicillin [From Larotid] Allergy Verified 12/18/17 02:58 aspirin [From Percodan] Allergy Verified 12/18/17 02:58 codeine Allergy Verified 12/18/17 02:58 esomeprazole [From Nexium] Allergy Verified 12/18/17 02:58 esomeprazole magnesium Allergy Verified 12/18/17 02:58 [From Nexium] famotidine [From Pepcid] Allergy Verified 12/18/17 02:58 hydrocodone Allergy Verified 12/18/17 02:58 hydrocodone bitartrate Allergy Verified 12/18/17 02:58 [From Vicodin] ibuprofen Allergy Verified 12/18/17 02:58 indomethacin [From Indocin] Allergy Verified 12/18/17 02:58 indomethacin sodium Allergy Verified 12/18/17 02:58 [From Indocin] iodine Allergy Verified 12/18/17 02:58 ketorolac [From Toradol] Allergy Verified 12/18/17 02:58 lactase [From Dairy Aid] Allergy Verified 12/18/17 02:58 lactose Allergy Verified 12/18/17 02:58 meclofenamate sodium Allergy Verified 12/18/17 02:58 [From Meclomen] morphine Allergy Verified 12/18/17 02:58 naproxen Allergy Verified 12/18/17 02:58 nitrofurantoin Allergy Verified 12/18/17 02:58 [From Macrodantin] oxycodone [From Percodan] Allergy Verified 12/18/17 02:58 Penicillins Allergy Verified 12/18/17 02:58 phenazopyridine Allergy Verified 12/18/17 02:58 [From Pyridium] povidone-iodine Allergy Verified 12/18/17 02:58 [From Betadine] propoxyphene [From Darvon] Allergy Verified 12/18/17 02:58 propoxyphene HCl Allergy Verified 12/18/17 02:58 [From Darvon] propranolol [From Inderal LA] Allergy Verified 12/18/17 02:58 soap [From Betadine] Allergy Verified 12/18/17 02:58 Sulfa (Sulfonamide Allergy Verified 12/18/17 02:58 Antibiotics) sulfamethoxazole Allergy Verified 12/18/17 02:58 [From Septra] tetracycline Allergy Verified 12/18/17 02:58 tramadol Allergy Verified 12/18/17 02:58 trimethoprim [From ] Allergy Verified 12/18/17 02:58 verapamil Allergy Verified 12/18/17 02:58 Medications: Current Medications Acetaminophen (Tylenol) 650 mg PO Q4H PRN PRN Reason: Headache/Fever or Pain Last Admin: 12/20/17 18:23 Dose: 650 mg Al Hydroxide/Mg Hydroxide (Maalox) 30 ml PO Q6H PRN PRN Reason: Heartburn or Indigestion Albuterol/Ipratropium (Duoneb) 3 ml NEB QID PRN PRN Reason: SOB &/or Wheezing Last Admin: 12/18/17 23:35 Dose: 3 ml Albuterol/Ipratropium (Duoneb) 3 ml NEB [id number] [facility] Last Admin: 12/21/17 07:38 Dose: 3 ml Aspirin (Aspirin Chewable) 81 mg PO DAILY [facility] Last Admin: 12/21/17 08:42 Dose: 81 mg Bisacodyl (Dulcolax) 10 mg TN Q24H PRN PRN Reason: Constipation Enoxaparin Sodium (Lovenox) 40 mg SC 0900 [facility] Last Admin: 12/21/17 08:42 Dose: 40 mg Fluconazole (Diflucan) 100 mg PO DAILY [facility] Last Admin: 12/21/17 08:42 Dose: 100 mg Guaifenesin (Robitussin Sf) 200 mg PO Q4H PRN PRN Reason: Cough Guaifenesin (Mucinex) 600 mg PO Q12HR [facility] Last Admin: 12/21/17 08:43 Dose: 600 mg Hydralazine HCl (Apresoline) 10 mg SLOW IVP Q4H PRN PRN Reason: Systolic BP > 180 Levofloxacin (Levaquin) 500 mg PO 0600 [facility] Last Admin: 12/21/17 05:49 Dose: 500 mg Levothyroxine Sodium (Synthroid) 100 mcg PO 0600 [facility] Last Admin: 12/21/17 05:49 Dose: 100 mcg Lidocaine (Lidoderm 5% Patch) 1 patch TD DAILY [facility] Last Admin: 12/21/17 08:43 Dose: 1 patch Linezolid (Zyvox) 600 mg PO Q12HR [facility] Stop: 12/25/17 21:01 Last Admin: 12/21/17 08:43 Dose: 600 mg Loratadine (Claritin) 10 mg PO DAILYPRN PRN PRN Reason: Sinus Symptoms Magnesium Hydroxide (Milk Of Magnesium) 30 ml PO DAILYPRN PRN PRN Reason: Constipation Metoclopramide HCl (Reglan) 10 mg PO ACHS [facility] Last Admin: 12/21/17 08:41 Dose: 10 mg Mineral Oil/White Petrolatum (Eucerin Cream) 0 gm TOP BIDPRN PRN PRN Reason: Dry Skin Miscellaneous Medication (Lidocaine Patch Removal) 1 each TOP ASDIR [facility] Ondansetron HCl (Zofran Odt) 4 mg SL Q6H PRN PRN Reason: Nausea/Vomiting Last Admin: 12/19/17 20:01 Dose: 4 mg Ondansetron HCl (Zofran) 4 mg IVP Q6H PRN PRN Reason: Nausea/Vomiting Pantoprazole Sodium (Protonix) 40 mg PO DAILY [facility] Last Admin: 12/21/17 08:43 Dose: 40 mg Symbicort 160/4.5 1 (Puff) 0 each INH BID-RT [facility] Last Admin: 12/21/17 07:51 Dose: 1 each Phenol (Chloraseptic [place] 180 Ml Bot) 0 ml PO PRN PRN PRN Reason: Sore Throat Promethazine HCl (Phenergan Suppository) 12.5 mg TN Q4H PRN PRN Reason: Nausea/Vomiting Raloxifene HCl (Evista) 60 mg PO DAILY [facility] Last Admin: 12/21/17 08:43 Dose: 60 mg Saccharomyces Boulardii (Florastor) 250 mg PO DAILY [facility] Last Admin: 12/21/17 08:43 Dose: 250 mg Senna (Senokot) 2 tab PO HSPRN PRN PRN Reason: Constipation Sodium Chloride ([place] Nasal [place] 0.65%) 0 ml EA NARE QIDPRN PRN PRN Reason: Nasal Congestion Sodium Chloride (Flush - Normal Saline) 10 ml IVF Q12HR [facility] Last Admin: 12/21/17 08:43 Dose: 10 ml Sodium Chloride (Flush - Normal Saline) 10 ml IVF PRN PRN PRN Reason: Saline Flush
--- NOTE | 2017-12-21 11:06 | CT ---
CT CHEST WITHOUT CONTRAST: HISTORY: Pneumonia. COMPARISON: Radiograph from prior day. Multiple other radiographs of the chest. FINDINGS: Layering right pleural effusion. 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 There is an area of consolidation in the right upper lobe surrounding a few cysts with air bronchogra ms. This is new from the 2016 examination. This is progressively worsening from the 12/05/17 examina tion. There is a peripheral left upper lobe mass in the anterior segment left upper lobe measuring 1 .8 x 1.7 cm. There are nodules in the left lung apex. There is an abnormal mass in the left lung ap ex within the pleural with peripheral spiculation measuring up to 1.7 cm. Mildly prominent pretracheal AP window lymph nodes. Large sliding hiatal hernia. There is a large c yst superior pole left kidney. Calcified granulomas of the spleen. No displaced rib fracture. No suspicious osteolytic or osteoblastic lesion. No thoracic spine compr ession fracture. IMPRESSION: 1. Progression of the right upper lobe airspace consolidation with air bronchograms extending into t he right middle lobe across from the right major fissure. This is suggestive of infection given this rapid progression and layering peripneumonic effusion. 2. Left upper lobe mass measures 1.8 cm abutting the pleura concerning for possible malignant proces s. This has a different appearance than the right upper lobe mass. 3. Spiculated mass in the left lung apex with pleural tail measuring up to 1.6 cm. There is also co ncerning for malignant process. 4. There are some calcified intraparenchymal lymph nodes versus partially calcified mass in the supe rior segment of the left lower lobe. 5. Overall, a followup CT in 1 month after treatment for infection is recommended to evaluate for ch gissell. If there is no change within the left lung nodules, a percutaneous biopsy or PET CT would be r ecommended. 6. 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 CODE: T CODE: LN POS: MICHAEL
[2017-12-21] MEDS: Acetaminophen 325 MG TAB PO PRN ×2 (13:02→19:00)
[2017-12-22] MEDS: Levothyroxine Sodium 100 MCG TAB PO SCH (05:40)
[2017-12-22] MEDS: SYMBICORT INH SCH ×2 (07:29→20:20)
[2017-12-22] MEDS: Metoclopramide HCl 10 MG TAB PO SCH ×4 (08:39→21:10)
[2017-12-22] MEDS: guaiFENesin ER 600 MG TAB PO SCH ×2 (08:41→21:10)
[2017-12-22] MEDS: Acetaminophen 325 MG TAB PO PRN ×3 (08:41→21:11)
[2017-12-22] MEDS: Saccharomyces boulardii 250 MG CAP PO SCH (08:42)
[2017-12-22] MEDS: Enoxaparin Sodium 40 MG/0.4 ML SYRINGE SC SCH (08:42)
[2017-12-22] MEDS: Linezolid 600 MG TAB PO SCH ×2 (08:42→21:11)
[2017-12-22] MEDS: Lidocaine 5% Patch TD SCH (08:42)
[2017-12-22] MEDS: Fluconazole 100 MG TAB PO SCH (08:42)
--- NOTE | 2017-12-22 09:26 | PRG ---
DATE OF SERVICE: 12/22/2017 SUBJECTIVE: Awake, alert and responsive. She is still coughing some bloody sputum. OBJECTIVE: VITAL SIGNS: Sats are 90% on room air, pulse 105, temperature 97, blood pressure 140/81. CHEST: Chest reveals decreased breath sounds without any wheezing. CARDIAC: Normal S1, S2, no gallops. ABDOMEN: Soft, no masses. IMPRESSION: 1. Necrotizing right-sided pneumonia, probably anaerobic infection. 2. Small pleural effusion. 3. Bilateral lung nodules of unknown significance. PLAN: Continue Zyvox, Levaquin. Neb treatments, supportive care. No reason to do a thoracentesis a t this time. Hopefully, she remains afebrile, we may consider outpatient antibiotics. We will follow.
--- NOTE | 2017-12-22 10:56 | PDOC.PN ---
- Subjective Encounter Start Date: 12/22/17 Encounter Start Time: 09:20 Patient seen and examined. No new complaints. No overnight events - Objective Resuscitation Status: Resuscitation Status FULL:Full Resuscitation MAR Reviewed: Yes Vital Signs & Weight: Vital Signs (12 hours) Temp Pulse Resp BP BP Pulse Ox 12/22/17 08:00 97.6 F 105 H 20 12/22/17 07:32 97.6 F 105 H 20 142/81 H 92 L 12/22/17 07:18 97 24 H 12/22/17 05:57 98.0 F 97 18 99/59 L 94 L 12/22/17 01:42 97.6 F 96 16 142/76 H 91 L Weight Admit Weight 105 lb 9.623 oz Weight 105 lb 9.623 oz I&O: 12/21/17 12/22/17 12/23/17 06:59 06:59 06:59 Intake Total 2076 350 Balance 2076 350 Result Diagrams: 12/21/17 02:02 12/21/17 02:02 Phys Exam - Physical Examination Constitutional: NAD HEENT: PERRLA, moist MMs, sclera anicteric Neck: no JVD, supple Respiratory: no wheezing, no rales, no rhonchi Cardiovascular: RRR, no significant murmur, no rub Gastrointestinal: soft, non-tender, no distention, positive bowel sounds Musculoskeletal: no edema, pulses present Neurological: non-focal, normal sensation, moves all 4 limbs Psychiatric: normal affect, A&O x 3 Skin: no rash, normal turgor Dx/Plan (1) Sepsis Code(s): A41.9 - SEPSIS, UNSPECIFIED ORGANISM Status: Acute Qualifiers: Sepsis type: sepsis due to unspecified organism Qualified Code(s): A41.9 - Sepsis, unspecified organism (2) Necrotizing pneumonia Code(s): J85.0 - GANGRENE AND NECROSIS OF LUNG Status: Acute (3) Anemia Code(s): D64.9 - ANEMIA, UNSPECIFIED Status: Chronic Qualifiers: Anemia type: unspecified type Qualified Code(s): D64.9 - Anemia, unspecified Comment: S/P 2 unit PRBC given (4) Dehydration Code(s): E86.0 - DEHYDRATION Status: Resolved (5) Hyponatremia Code(s): E87.1 - HYPO-OSMOLALITY AND HYPONATREMIA Status: Resolved (6) GERD (gastroesophageal reflux disease) Code(s): K21.9 - GASTRO-ESOPHAGEAL REFLUX DISEASE WITHOUT ESOPHAGITIS Status: Chronic Qualifiers: Esophagitis presence: without esophagitis Qualified Code(s): K21.9 - Gastro -esophageal reflux disease without esophagitis (7) H/O hiatal hernia Code(s): Z87.19 - PERSONAL HISTORY OF OTHER DISEASES OF THE DIGESTIVE SYSTEM Status: Chronic (8) HTN (hypertension) Code(s): I10 - ESSENTIAL (PRIMARY) HYPERTENSION Status: Chronic Qualifiers: (9) History of esophageal stricture Code(s): Z87.19 - PERSONAL HISTORY OF OTHER DISEASES OF THE DIGESTIVE SYSTEM Status: Chronic Comment: last dilatation was 1 yr back (10) Hypothyroidism Code(s): E03.9 - HYPOTHYROIDISM, UNSPECIFIED Status: Chronic Qualifiers: (11) Sjogrens syndrome Code(s): M35.00 - SICCA SYNDROME, UNSPECIFIED Status: Chronic - Plan cont current plan of care, continue antibiotics, respiratory therapy * tomorrow repeat chest xray * continue oral zyvox and levaquin * will consider discharge when pulmonary clears * medication reviewed as below * symptomatic treatment * will monitor today Review of Systems - Review of Systems Constitutional: negative: fever, chills, sweats, weakness, malaise, other Eyes: negative: Pain, Vision Change, Conjunctivae Inflammation, Eyelid Inflammation, Redness, Other ENT: negative: Ear Pain, Ear Discharge, Nose Pain, Nose Discharge, Nose Congestion, Mouth Pain, Mouth Swelling, Throat Pain, Throat Swelling, Other Respiratory: Cough, Sputum. negative: Dry, Shortness of Breath, Hemoptysis, SOB with Excertion, Pleuritic Pain, Wheezing Gastrointestinal: negative: Nausea, Vomiting, Abdominal Pain, Diarrhea, Constipation, Melena, Hematochezia, Other Genitourinary: negative: Dysuria, Frequency, Incontinence, Hematuria, Retention , Other Musculoskeletal: negative: Neck Pain, Shoulder Pain, Arm Pain, Back Pain, Hand Pain, Leg Pain, Foot Pain, Other Skin: negative: Rash, Lesions, Isidoro, Bruising, Other - Medications/Allergies Allergies/Adverse Reactions: Allergies Allergy/AdvReac Type Severity Reaction Status Date / Time amoxicillin [From Larotid] Allergy Verified 12/18/17 02:58 aspirin [From Percodan] Allergy Verified 12/18/17 02:58 codeine Allergy Verified 12/18/17 02:58 esomeprazole [From Nexium] Allergy Verified 12/18/17 02:58 esomeprazole magnesium Allergy Verified 12/18/17 02:58 [From Nexium] famotidine [From Pepcid] Allergy Verified 12/18/17 02:58 hydrocodone Allergy Verified 12/18/17 02:58 hydrocodone bitartrate Allergy Verified 12/18/17 02:58 [From Vicodin] ibuprofen Allergy Verified 12/18/17 02:58 indomethacin [From Indocin] Allergy Verified 12/18/17 02:58 indomethacin sodium Allergy Verified 12/18/17 02:58 [From Indocin] iodine Allergy Verified 12/18/17 02:58 ketorolac [From Toradol] Allergy Verified 12/18/17 02:58 lactase [From Dairy Aid] Allergy Verified 12/18/17 02:58 lactose Allergy Verified 12/18/17 02:58 meclofenamate sodium Allergy Verified 12/18/17 02:58 [From Meclomen] morphine Allergy Verified 12/18/17 02:58 naproxen Allergy Verified 12/18/17 02:58 nitrofurantoin Allergy Verified 12/18/17 02:58 [From Macrodantin] oxycodone [From Percodan] Allergy Verified 12/18/17 02:58 Penicillins Allergy Verified 12/18/17 02:58 phenazopyridine Allergy Verified 12/18/17 02:58 [From Pyridium] povidone-iodine Allergy Verified 12/18/17 02:58 [From Betadine] propoxyphene [From Darvon] Allergy Verified 12/18/17 02:58 propoxyphene HCl Allergy Verified 12/18/17 02:58 [From Darvon] propranolol [From Inderal LA] Allergy Verified 12/18/17 02:58 soap [From Betadine] Allergy Verified 12/18/17 02:58 Sulfa (Sulfonamide Allergy Verified 12/18/17 02:58 Antibiotics) sulfamethoxazole Allergy Verified 12/18/17 02:58 [From Septra] tetracycline Allergy Verified 12/18/17 02:58 tramadol Allergy Verified 12/18/17 02:58 trimethoprim [From Septra] Allergy Verified 12/18/17 02:58 verapamil Allergy Verified 12/18/17 02:58 Medications: Current Medications Acetaminophen (Tylenol) 650 mg PO Q4H PRN PRN Reason: Headache/Fever or Pain Last Admin: 12/22/17 08:41 Dose: 650 mg Al Hydroxide/Mg Hydroxide (Maalox) 30 ml PO Q6H PRN PRN Reason: Heartburn or Indigestion Albuterol/Ipratropium (Duoneb) 3 ml NEB QID PRN PRN Reason: SOB &/or Wheezing Last Admin: 12/18/17 23:35 Dose: 3 ml Albuterol/Ipratropium (Duoneb) 3 ml NEB [id number] [facility] Last Admin: 12/22/17 07:18 Dose: 3 ml Aspirin (Aspirin Chewable) 81 mg PO DAILY [facility] Last Admin: 12/22/17 08:39 Dose: 81 mg Bisacodyl (Dulcolax) 10 mg MO Q24H PRN PRN Reason: Constipation Enoxaparin Sodium (Lovenox) 40 mg SC 0900 [facility] Last Admin: 12/22/17 08:42 Dose: Not Given Fluconazole (Diflucan) 100 mg PO DAILY [facility] Last Admin: 12/22/17 08:42 Dose: 100 mg Guaifenesin (Robitussin Sf) 200 mg PO Q4H PRN PRN Reason: Cough Guaifenesin (Mucinex) 600 mg PO Q12HR [facility] Last Admin: 12/22/17 08:41 Dose: 600 mg Hydralazine HCl (Apresoline) 10 mg SLOW IVP Q4H PRN PRN Reason: Systolic BP > 180 Levofloxacin (Levaquin) 500 mg PO 0600 [facility] Last Admin: 12/22/17 05:40 Dose: 500 mg Levothyroxine Sodium (Synthroid) 100 mcg PO 0600 [facility] Last Admin: 12/22/17 05:40 Dose: 100 mcg Lidocaine (Lidoderm 5% Patch) 1 patch TD DAILY [facility] Last Admin: 12/22/17 08:42 Dose: 1 patch Linezolid (Zyvox) 600 mg PO Q12HR [facility] Stop: 12/25/17 21:01 Last Admin: 12/22/17 08:42 Dose: 600 mg Loratadine (Claritin) 10 mg PO DAILYPRN PRN PRN Reason: Sinus Symptoms Magnesium Hydroxide (Milk Of Magnesium) 30 ml PO DAILYPRN PRN PRN Reason: Constipation Metoclopramide HCl (Reglan) 10 mg PO ACHS [facility] Last Admin: 12/22/17 08:39 Dose: 10 mg Mineral Oil/White Petrolatum (Eucerin Cream) 0 gm TOP BIDPRN PRN PRN Reason: Dry Skin Miscellaneous Medication (Lidocaine Patch Removal) 1 each TOP ASDIR [facility] Ondansetron HCl (Zofran Odt) 4 mg SL Q6H PRN PRN Reason: Nausea/Vomiting Last Admin: 12/19/17 20:01 Dose: 4 mg Ondansetron HCl (Zofran) 4 mg IVP Q6H PRN PRN Reason: Nausea/Vomiting Pantoprazole Sodium (Protonix) 40 mg PO DAILY [facility] Last Admin: 12/22/17 08:40 Dose: 40 mg Symbicort 160/4.5 1 (Puff) 0 each INH BID-RT [facility] Last Admin: 12/22/17 07:29 Dose: 1 each Phenol (Chloraseptic Clark 180 Ml Bot) 0 ml PO PRN PRN PRN Reason: Sore Throat Promethazine HCl (Phenergan Suppository) 12.5 mg MO Q4H PRN PRN Reason: Nausea/Vomiting Raloxifene HCl (Evista) 60 mg PO DAILY [facility] Last Admin: 12/22/17 08:40 Dose: 60 mg Saccharomyces Boulardii (Florastor) 250 mg PO DAILY [facility] Last Admin: 12/22/17 08:42 Dose: 250 mg Senna (Senokot) 2 tab PO HSPRN PRN PRN Reason: Constipation Sodium Chloride ([place]man Nasal Clark 0.65%) 0 ml EA NARE QIDPRN PRN PRN Reason: Nasal Congestion Sodium Chloride (Flush - Normal Saline) 10 ml IVF Q12HR [facility] Last Admin: 12/22/17 08:42 Dose: 10 ml Sodium Chloride (Flush - Normal Saline) 10 ml IVF PRN PRN PRN Reason: Saline Flush
[2017-12-23] MEDS: Acetaminophen 325 MG TAB PO PRN ×2 (01:19→05:18)
[2017-12-23] MEDS: Levothyroxine Sodium 100 MCG TAB PO SCH (05:17)
[2017-12-23] MEDS: Ondansetron ODT 4 MG TAB SL PRN (05:21)
[2017-12-23] MEDS: SYMBICORT INH SCH (07:01)
[2017-12-23 07:26] VITALS: BP 106/65; TEMP 98
[2017-12-23] MEDS: Metoclopramide HCl 10 MG TAB PO SCH (08:13)
[2017-12-23] MEDS: Fluconazole 100 MG TAB PO SCH (08:13)
[2017-12-23] MEDS: Linezolid 600 MG TAB PO SCH (08:14)
[2017-12-23] MEDS: guaiFENesin ER 600 MG TAB PO SCH (08:14)
[2017-12-23] MEDS: Lidocaine 5% Patch TD SCH (08:14)
[2017-12-23] MEDS: Saccharomyces boulardii 250 MG CAP PO SCH (08:14)
[2017-12-23] MEDS: Enoxaparin Sodium 40 MG/0.4 ML SYRINGE SC SCH (08:15)
--- NOTE | 2017-12-23 08:49 | PRG ---
DATE OF SERVICE: 12/23/2017 She is awake, alert, responsive. PHYSICAL EXAMINATION: VITAL SIGNS: Sats 90% on room air, temperature 98, pulse 99, respiration 16, blood pressure 106/65. CHEST: Chest revealed decreased breath sounds, no wheezing. CARDIAC: Normal S1-S2. No gallops. ABDOMEN: Soft. No masses. IMPRESSION: 1. Right upper lung cavitary necrotizing pneumonia with pleural effusion. 2. Multiple allergies. She had an anti-staph and assume was antibiotic. All cultures have been negative. Await chest x-ray . Hopefully, we can discharge in the next several days if she remains asymptomatic. Thoracentesis only if pleural effusion gets larger, or if she becomes febrile.
--- NOTE | 2017-12-23 10:03 | RAD ---
CHEST ONE VIEW: HISTORY: Effusion. COMPARISON: 12/20/2017 CORRELATION: 12/21/2017 FINDINGS: Persistent opacification of the lung parenchyma, similar to the previous radiograph and CT. Diffuse interstitial and alveolar opacities. Focal consolidation of the right upper lobe is noted. The left upper lobe mass is again demonstrated. The lungs are hyperinflated. No pneumothorax. There is krissy dence of a small right-sided pleural effusion. IMPRESSION: 1. No significant interval change. 2. Small right-sided pleural effusion. POS: [facility]
--- NOTE | 2017-12-23 10:14 | DIS ---
DATE OF ADMISSION: 12/18/2017 DATE OF DISCHARGE: 12/23/2017 PRIMARY CARE PHYSICIAN: Daniel Key M.D. DISCHARGE DISPOSITION: Home. PRIMARY DISCHARGE DIAGNOSES: Necrotizing pneumonia, sepsis, symptomatic anemia status post 2 units t ransfusion, dehydration corrected, hyponatremia corrected. SECONDARY DISCHARGE DIAGNOSES: Sjogren syndrome, hypothyroidism, hypertension, history of esophageal stricture, history of hiatal hernia, gastroesophageal reflux disease, and chronic normocytic anemia. PRIMARY PROCEDURE/OPERATION: Upper endoscopy was performed by Dr. Do and it was normal. RADIOLOGICAL INVESTIGATION: Chest x-ray showed pneumonia. CT chest was consistent with necrotizing pneumonia. SIGNIFICANT LABORATORY DATA: WBC 11.0, hemoglobin 11.2, and platelet 264. INR 1.3. D-dimer 0.88. Sodium 137, creatinine 0.73. LFT normal and cortisol 16.10. Urinalysis unremarkable. Culture in bl ood, sputum and urine is negative. Stool for guaiac negative. DISCHARGE MEDICATIONS: Aspirin 81 mg p.o. daily, Diflucan 100 mg p.o. daily for 10 days, Mucinex 600 mg twice daily for 10 days, DuoNeb q.i.d. p.r.n., probiotic 1 capsule daily, Synthroid 100 mcg p.o. daily, Zyvox 600 mg twice daily for 10 days, Avelox 400 mg p.o. daily for 7 days, Protonix 40 mg p.o. daily, Evista 60 mg p.o. daily, and Zantac 150 mg p.o. daily. CONTRAINDICATIONS: None. CODE STATUS: FULL CODE. INPATIENT CONSULTANTS: Dr. Do was consulted while in hospital. Pulmonary Group, Dr. Palacios was cons ulted while in hospital. TEST RESULTS PENDING ON DISCHARGE: None. ALLERGIES: AMOXICILLIN, ASPIRIN, CODEINE, and NEXIUM. DISCHARGE PLAN: Post hospital, patient will follow up with primary care physician, Dr. Palacios as instr ucted. HOSPITAL COURSE: An 87-year-old female who was admitted by me on 12/18/2017. Please see my HPI for further detail. This patient was recently treated for pneumonia and she was readmitted for worsening of pneumonia. She was having cough, shortness of breath as well as subjective fever. Her WBC count was significantly elevated to 39,000 on admission. She was treated with vancomycin and levofloxacin . Subsequently her WBC count gradually decreased to 11,000. Patient had several chest x-rays while in hospital as well as patient had CT chest without contrast which showed necrotizing pneumonia. Thi s patient was not willing to go for contrast study while in hospital and that is why CT chest without contrast was performed. Pulmonary Group was managing while in hospital. On admission, her hemoglobin was surprisingly 6.1 and that is why we transfused 2 units of blood, but subsequently her hemoglobin remained 11.8. The patient remained afebrile while in hospital. She wa s given IV fluid while in hospital. Initially, she was admitted to telemetry floor and subsequently we transferred her to medical floor. The patient is on room air. She is ambulatory, tolerating p.o. well. Today, Dr. Palacios cleared her fo r discharge. Dr. Palacios prescribed Avelox and Zyvox. The patient will follow up with Dr. Palacios as an o utpatient basis. I have seen and examined this patient bedside personally and plan of care discussed with the patient in detail as well as discharge medication discussed.
== END 2017-12-23 11:21 | disposition home or self-care (01) | DRG 871 ==
LOC: ERS 21:44 → 2NO 12-18 01:20 → T4-A 12-21 12:03
PROVIDERS: ADMIT Internal Medicine; ATTEND Internal Medicine
PROC: 30233N1 Transfusion of Nonautologous Red Blood Cells into Peripheral Vein, Percutaneous Approach (ICD-10-PCS; 2017-12-18)
PROC: 0DJ08ZZ Inspection of Upper Intestinal Tract, Via Natural or Artificial Opening Endoscopic (ICD-10-PCS; principal; 2017-12-20)
DX: A41.9 Sepsis, unspecified organism (principal); J18.9 Pneumonia, unspecified organism; E87.1 Hypo-osmolality and hyponatremia; Z79.899 Other long term (current) drug therapy; Z88.8 Allergy status to other drugs, medicaments and biological substances; Z88.2 Allergy status to sulfonamides; Z88.5 Allergy status to narcotic agent; Z88.0 Allergy status to penicillin; Z79.82 Long term (current) use of aspirin; K27.9 Peptic ulcer, site unspecified, unspecified as acute or chronic, without hemorrhage or perforation; E03.9 Hypothyroidism, unspecified; I34.1 Nonrheumatic mitral (valve) prolapse; K21.9 Gastro-esophageal reflux disease without esophagitis; K44.9 Diaphragmatic hernia without obstruction or gangrene; R13.10 Dysphagia, unspecified; M35.00 Sjogren syndrome, unspecified; D63.8 Anemia in other chronic diseases classified elsewhere; J44.9 Chronic obstructive pulmonary disease, unspecified; E86.0 Dehydration
CPT/HCPCS: 36415; 36430; 71045; 71046; 71250; 80048; 80053; 80202; 81001; 82274; 82533; 82553; 83605; 83615; 83880; 84484; 85025; 85046; 85379; 85610; 85730; 86850; 86900; 86901; 86921; 87040; 87070; 87086; 87205; 88305; 88312; 88341; 88342; 93005; 94640; 96361; 96365; A4216; G8978-GP-CJ; G8979-GP-CJ; G8980-GP-CJ; G8987-GO-CI; G8988-GO-CI; G8989-GO-CI; G8996-GN-CJ; G8997-GN-CI; J1580; J1650; J1956; J2001; J2405; J2550; J2704; J3370; J7050; J7620; P9016; Q0162

== ENCOUNTER 2018-01-03 13:01 | Outpatient (CLI) | payer MEDICARE, BC, OTHER ==
--- NOTE | 2018-01-03 14:20 | RAD ---
PA AND LATERAL CHEST: HISTORY: An 87-year-old female with dyspnea. COMPARISON: 12/23/2017 FINDINGS: Persistent, minimally improving, alveolar, pleural-based parenchymal changes in the right upper lobe, laterally. Stable patchy bilateral interstitial and alveolar nodular parenchymal changes in the per ihilar regions and lower lung zones. Slightly improved blunting of the right costophrenic angle, sug gesting some improved effusion. Stable heart size. IMPRESSION: 1. Some improving pleural-based parenchymal changes at the lateral aspect of the right upper lobe. 2. Minimally improving right pleural effusion. 3. Otherwise stable interstitial and nodular parenchymal changes bilaterally. POS: [facility]
== END 2018-01-03 13:02 | disposition home or self-care (01) ==
LOC: RAD 13:01
PROVIDERS: ATTEND Internal Medicine Pulmonary Disease
DX: R91.8 Other nonspecific abnormal finding of lung field (principal); J90 Pleural effusion, not elsewhere classified
CPT/HCPCS: 71046

== ENCOUNTER 2018-03-06 14:14 | Outpatient (CLI) | payer MEDICARE, BC, OTHER ==
--- NOTE | 2018-03-06 15:45 | RAD ---
PA AND LATERAL VIEWS CHEST: HISTORY: Dyspnea. FINDINGS: Comparison is made with the exam of 01/03/18. The heart size is normal. The lungs are expanded with stable chronic changes. No pneumothoraces or pleural effusions are seen. Continued followup is recommended in 3 months. POS: [facility]
== END 2018-03-06 14:15 | disposition home or self-care (01) ==
LOC: RAD 14:14
PROVIDERS: ATTEND Internal Medicine Pulmonary Disease
DX: R06.00 Dyspnea, unspecified (principal)
CPT/HCPCS: 71046

== ENCOUNTER 2018-05-09 12:24 | Outpatient (CLI) | payer MEDICARE, BC, OTHER | END 2018-05-09 12:25 | disposition home or self-care (01) | LOC: BICMAMMO 12:24 | PROVIDERS: ATTEND Internal Medicine | DX: Z12.31 Encounter for screening mammogram for malignant neoplasm of breast (principal); R92.1 Mammographic calcification found on diagnostic imaging of breast; Z85.828 Personal history of other malignant neoplasm of skin | CPT/HCPCS: 77063; 77067 ==

== ENCOUNTER 2018-12-13 23:12 | Emergency (ER) | payer MEDICARE, BC, OTHER ==
--- NOTE | 2018-12-14 07:22 | CT ---
PRELIMINARY REPORT/[facility]/EMERGENCY AFTER HOURS PROCEDURE: EXAM: CT Cervical Spine Without Contrast EXAM DATE/TIME: 12/14/2018 12:35 AM CLINICAL HISTORY: 88 years old, female; Injury or trauma; Fall; Initial encounter; Abrasion; Patient HX: Er wr. PT repo rts she tripped and fell at [facility]. Denies loc. TECHNIQUE: Imaging protocol: Axial computed tomography images of the cervical spine without contrast. Sagittal a nd coronal reformatted images were created and reviewed. COMPARISON: No relevant prior studies available. FINDINGS: Vertebrae: See Discs/spinal Canal/neural Foramina Finding. Discs/Spinal canal/Neural foramina: There is multilevel disc height loss, endplate degenerative spurr ing and uncinate process and facet hypertrophy. There is diffuse osteopenia. Soft tissues: Unremarkable. Lungs: There is biapical pleural and parenchymal scarring including a region of possible nodular scar ring at the left lung apex measuring a maximum of 1.4 cm, cannot exclude indeterminate spiculated pul monary nodule and there is mild centrilobular emphysema. Chest pathology may be more fully assess with CT chest on a nonemergent basis. IMPRESSION: 1. No acute cervical spine fracture. 2. There is biapical pleural and parenchymal scarring including a region of possible nodular scarring at the left lung apex measuring a maximum of 1.4 cm, cannot exclude indeterminate spiculated pulmona ry nodule and there is mild centrilobular emphysema. Chest pathology may be more fully assess with CT chest on a nonemergent basis. Thank you for allowing us to participate in the care of your patient. Dictated and Authenticated by: Hemanth Peralta MD 12/14/2018 1:34 AM Central Time ([place] & [place]) FINAL REPORT EMERGENCY AFTER HOURS CT CERVICAL SPINE: Date: 12/14/18 IMPRESSION: I agree with the preliminary report provided by Carmella. No acute fracture is evident. The spiculated nodule within the left upper lobe was detailed on a CT of the thorax dated 12/21/17 [facility]. The nodule is slightly larger, measuring 2.0 x 1.5 cm, where it pr eviously measured 1.8 x 1.[address] of the thorax. Scattered emphysema is similar appearing. Reevaluation of the chest with CT on a nonemergent basis is recommended. POS: [facility]
--- NOTE | 2018-12-14 07:24 | CT ---
PRELIMINARY REPORT/[facility]/EMERGENCY AFTER HOURS PROCEDURE: EXAM: CT Head Without Contrast EXAM DATE/TIME: 12/14/2018 12:37 AM CLINICAL HISTORY: 88 years old, female; Injury or trauma; Fall; Initial encounter; Abrasion; Not specified; Patient HX: Er wr. PT reports she tripped and fell at [facility]. Denies loc. TECHNIQUE: Imaging protocol: Axial computed tomography images of the head without contrast. COMPARISON: No relevant prior studies available. FINDINGS: Brain: There is age-related diffuse cerebral and cerebellar volume loss and chronic microvascular isc hemic disease. Ventricles: Normal. No ventriculomegaly. Bones/joints: Unremarkable. No acute fracture. Sinuses: There is a mucous retention cyst or polyp in the left maxillary sinus. Mastoid air cells: Visualized mastoid air cells are well aerated. No mastoid effusion. Soft tissues: Unremarkable. IMPRESSION: 1. There is age-related diffuse cerebral and cerebellar volume loss and chronic microvascular ischemi c disease. 2. No acute intracranial pathology. Thank you for allowing us to participate in the care of your patient. Dictated and Authenticated by: Hemanth Peralta MD 12/14/2018 1:35 AM Central Time ([place] & [place]) FINAL REPORT EMERGENCY AFTER HOURS CT BRAIN WITHOUT CONTRAST: Date: 12/14/18 HISTORY: Tripped and fell at [facility]. IMPRESSION: I agree with the preliminary report provided by Carmella. No acute intracranial abnormality demonstrated. POS: [facility]
--- NOTE | 2018-12-14 07:37 | RAD ---
CHEST 1 VIEW: Date: 12/14/18 INDICATION: History of mechanical fall. COMPARISON: Prior exam dated 03/06/18. FINDINGS: Bilateral perihilar masses and severe COPD change is stable. There is a mild size hiatal hernia. Patc hy air space opacity present within the right lower lobe, some of which were present on the compariso n exam. No pleural effusion is evident. There is diffuse osteopenia. There is stable cardiomegaly. IMPRESSION: 1. Stable bilateral pulmonary nodules. 2. Stable severe COPD. 3. Small hiatal hernia. 4. Stable cardiomegaly. POS: [facility]
--- NOTE | 2018-12-14 07:43 | RAD ---
TWO VIEWS OF THE RIGHT WRIST: INDICATION: History of fall with right rib pain. COMPARISON: None. IMPRESSION: No displaced right-sided rib fracture is evident. Severe COPD change and perihilar nodularity is sim ilar to a comparison chest radiograph dated 03/06/2018. There is a small hiatal hernia. POS: [facility]
== END 2018-12-14 02:08 | disposition home or self-care (01) ==
LOC: ERS 23:12
DX: S20.211A Contusion of right front wall of thorax, initial encounter (principal); L97.919 Non-pressure chronic ulcer of unspecified part of right lower leg with unspecified severity; M81.0 Age-related osteoporosis without current pathological fracture; E03.9 Hypothyroidism, unspecified; M25.511 Pain in right shoulder; M25.561 Pain in right knee; M25.562 Pain in left knee; W01.0XXA Fall on same level from slipping, tripping and stumbling without subsequent striking against object, initial encounter
CPT/HCPCS: 70450; 71045; 72125

== ENCOUNTER 2018-12-28 12:06 | Outpatient (CLI) | payer MEDICARE, BC, OTHER ==
--- NOTE | 2018-12-28 15:01 | PET ---
RADIONUCLIDE PET SCAN WITH CT ATTENUATION CORRECTION: HISTORY: Lung nodules. FINDINGS: Correlated with CT chest from 12/21/2017. Physiologic uptake of radiotracer throughout the enteric system and along each urinary tract. Right p leural fluid has resolved since the prior study. Patchy areas of parenchymal infiltrate throughout each lung have, in general, decreased. The remaining parenchymal opacities scattered throughout each lung are closely evaluated. Most show very slight increase in radiotracer activity related to baseline without going above the pathologic threshold. At the left anterior lung base, a rounded mass-like focus of infiltrate and increased radiotracer act ivity shows a maximum SUV of 2.4. The morphologic size and appearance are stable compared to prior CT from one year ago. At the anterior aspect of the right upper lobe, abutting the anterolateral pleura, a peripheral wedge -shaped area of parenchymal infiltrate and consolidation has shrunk and become more dense since the prior CT scan. Maximum SUV 3.8. 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 There is calcification within the arterial structures. Large left renal cyst. Calcified granulomata from healed granulomatous disease. Small hiatal hernia. IMPRESSION: Only two areas (one on each side) show hypermetabolic activity above the threshold of pathology based on PET imaging. Most of the parenchymal mass-like infiltrates have improved since the prior CT scan. Right pleural fluid has resolved. With the morphologic and scintigraphic appearance, infection is favored to be more likely than neopla sm. If, however, tissue diagnosis is still needed, the most hypermetabolic lesion, in the anterior segment right upper lobe, could be sampled percutaneously with CT guidance. Transcribed Date/Time: 12/28/2018 3:09 PM
== END 2018-12-28 12:07 | disposition home or self-care (01) ==
LOC: PET 12:06
PROVIDERS: ATTEND Internal Medicine Pulmonary Disease
DX: R91.8 Other nonspecific abnormal finding of lung field (principal)
CPT/HCPCS: 78815; A9552

== ENCOUNTER 2019-05-10 15:35 | Outpatient (CLI) | payer MEDICARE, BC, OTHER ==
--- NOTE | 2019-05-10 16:23 | MMO ---
Bilateral MAMMO Bilat Screen [facility]. CLINICAL HISTORY: Patient is 88 years old and is seen for screening. The patient has no family history of breast cancer. The patient has a history of Skin cancer. The patient has a history of left Excisional Biopsy in 1958 - benign and left Excisional Biopsy in 1960 - benign. VIEWS: The views performed were: bilateral craniocaudal with tomosynthesis and bilateral mediolateral oblique with tomosynthesis. FILMS COMPARED: The present examination has been compared to a prior imaging study performed at [facility] on 05/09/2018. This study has been interpreted with the assistance of computer-aided detection. MAMMOGRAM FINDINGS: There are scattered fibroglandular densities. There are stable benign appearing calcifications seen in both breasts. There are no suspicious masses, suspicious calcifications, or new areas of architectural distortion. IMPRESSION: THERE IS NO MAMMOGRAPHIC EVIDENCE OF MALIGNANCY. A ROUTINE FOLLOW-UP MAMMOGRAM IN 1 YEAR IS RECOMMENDED. THE RESULTS OF THIS EXAM WERE SENT TO THE PATIENT. ACR BI-RADS Category 2 - Benign finding MAMMOGRAPHY NOTE: 1. A negative mammogram report should not delay a biopsy if a dominant of clinically suspicious mass is present. 2. Approximately 10% to 15% of breast cancers are not detected by mammography. 3. Adenosis and dense breasts may obscure an underlying neoplasm. Reported by: NISHA KINSEY MD Electonically Signed: [id number]
== END 2019-05-10 15:36 | disposition home or self-care (01) ==
LOC: BICMAMMO 15:35
PROVIDERS: ATTEND Internal Medicine
DX: Z12.31 Encounter for screening mammogram for malignant neoplasm of breast (principal); Z85.828 Personal history of other malignant neoplasm of skin; Z91.89 Other specified personal risk factors, not elsewhere classified
CPT/HCPCS: 77063; 77067

== ENCOUNTER 2019-07-04 13:41 | Outpatient (CLI) | payer MEDICARE, BC, OTHER ==
--- NOTE | 2019-07-04 14:19 | RAD ---
2 views of chest: 07/04/2019 COMPARISON: 03/06/2018 HISTORY: Shortness of breath FINDINGS: There is no pneumothorax or pleural fluid and no lobar consolidation or alveolar edema. There is prominent anterolisthesis at the lumbosacral junction. Stable pulmonary masses/nodules are suspected, including 2 nodular densities in the mid right lung zo ne and a left perihilar mass density. Mid right lung zone masses measure up to 2 cm and left perihilar mass measures up to 2.6 cm. There is chronic linear interstitial density with pulmonary hyp erinflation. IMPRESSION: Stable 2 view examination of the chest demonstrating nonspecific bilateral pulmonary mass es as well as diffuse increased linear interstitial density and pulmonary hyperinflation.
== END 2019-07-04 13:42 | disposition home or self-care (01) ==
LOC: RAD 13:41
PROVIDERS: ATTEND Internal Medicine Pulmonary Disease
DX: R06.00 Dyspnea, unspecified (principal); R91.8 Other nonspecific abnormal finding of lung field
CPT/HCPCS: 71046

== ENCOUNTER 2019-09-08 17:21 | Inpatient (IN) | payer MEDICARE, BC, OTHER ==
[2019-09-08 18:09] LABS: Hemoglobin 12.2 g/dL (12.0-16.0); Mean Corpuscular HGB CONC 34.8 g/dL (32.0-36.0); Mean Corpuscular Hemoglobin 32.1 pg (27.0-31.0); Mean Corpuscular Volume 92.2 fL (78.0-98.0); Mean Platelet Volume 9.1 fL (7.4-10.4); Platelet Count 211 thou/uL (130-400); RBC Distribution Width 12.2 % (11.5-14.5); Red Blood Cell (RBC) Count 3.78 mill/uL (4.20-5.40); White Blood Cell (WBC) Count 12.5 thou/uL (4.8-10.8)
--- NOTE | 2019-09-08 18:15 | RAD ---
Exam: Chest one view HISTORY:Cough Comparison: 12/14/2018 FINDINGS: Cardiac silhouette:Upper normal cardiac silhouette Aorta: Atherosclerosis and slight elongation of the aorta Pulmonary vessels: Normal Costophrenic angles: Clear LUNGS: Hyperinflation with chronic changes. There appears be a superimposed infiltrate in both lower lobes. Questionable cavitation versus cystic lesion in the left lower lobe. Pneumothorax: None Osseous abnormalities: None IMPRESSION: 1. Bibasilar infiltrates. 2. Cavitation in the left lower lobe. Correlation made with PET imaging (12/28/2018) demonstrates multi ple cavitations in the lung parenchyma. Transcribed Date/Time: 09/08/2019 6:15 PM
[2019-09-08] MEDS ORDERED: Cefepime 2 GM VIAL ONE (18:26)
[2019-09-08] MEDS ORDERED: Sodium Chloride 0.9% 100 ML ONE (18:26)
[2019-09-08 18:29] LABS: Band 36 % (5-11); Dohle Bodies SLIGHT; Lymphocytes 4 % (21-51); MDiff Complete? YES; Metamyelocyte 2 % (0-0); Monocytes 2 % (0-10); Neutrophil 56 % (42-75); Platelet Morphology Comment Appears Adequate; RBC Morphology Normal; Vacuoles SLIGHT
[2019-09-08 18:31] LABS: ALT (SGPT) 24 U/L (8-55); AST (SGOT) 35 U/L (5-34); Alkaline Phosphatase 136 U/L (40-110); Anion Gap 15 mmol/L (10-20); BUN (Urea Nitrogen) 51 mg/dL (9.8-20.1); Bilirubin, Total 1.2 mg/dL (0.2-1.2); Calc. Creatinine Clearance 0 mL/min (70-130); Calcium 8.9 mg/dL (7.8-10.44); Carbon Dioxide 24 mmol/L (23-31); Chloride 100 mmol/L (98-107); Estimated GFR-MDRD 36; Globulin 5.1 g/dL (2.4-3.5); Glucose 112 mg/dL (83-110); Potassium 3.5 mmol/L (3.5-5.1); Protein, Total 8.1 g/dL (6.0-8.3); Sodium 135 mmol/L (136-145)
[2019-09-08 18:52] LABS: Bacteria/HPF None Seen HPF (None Seen); Bilirubin Negative (Negative); Blood, Urine Trace (Negative); Clarity Clear (Clear); Glucose, Urine (Dipstick) Normal (Negative); Leukocyte Negative Leu/uL (Negative); Nitrite Negative (Negative); Protein, Urine (Dipstick) 100 mg/dL (Neg-Trace); RBC/HPF 0-3 HPF (0-3); Squamous Epithelial 0-3 HPF (0-3); Urobilinogen Normal mg/dL (Less than 2); WBC/HPF 0-3 HPF (0-3)
[2019-09-08] MEDS ORDERED: Senokot S 8.6-50 MG TAB PO PRN (20:24)
[2019-09-08] MEDS ORDERED: Sodium Chloride 0.9% 1,000 ML IV SCH (20:30)
[2019-09-08 21:10] LABS: Lactic Acid 3.1 mmol/L (0.5-2.2)
[2019-09-08] MEDS ORDERED: Non-Formulary Item 1 EACH (Acetaminophen [Tylenol] 325 MG) PO PRN (23:23)
--- NOTE | 2019-09-08 23:34 | PDOC.EVN ---
Event Note - Event Note Event Note: Patient seen and examined for Sepsis. Presented with productive cough with SOB. o/e - B/L rhonchi/rales with scat wheezing, S1S2 +, Abd soft. 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 Will cont Levaquin. Change Cefepime to Meropenem. Cont Nebs. Pulm consult in AM I agree with the note by Ramya Hennessy
--- NOTE | 2019-09-09 00:17 | HP ---
PRIMARY CARE PHYSICIAN: Daniel Key MD. PLAYER SERVICES REPRESENTATIVE: Godfrey Palacios MD. MANUFACTURING PRODUCTION TECHNICIAN: Silver Jacobsen MD CHIEF COMPLAINT: Fever, nausea, vomiting, and diarrhea x4 days. HISTORY OF PRESENT ILLNESS: Ms. Bonds is a very pleasant 89-year-old female, who was brought to the emergency room today by her for evaluation of a fever as high as 103.5, nausea, vomiting, and diarrhea since Tuesday. She also reports a cough with some shortness of breath and some intermittent chest pain. She also has a history of COPD and normally takes two breathing treatments per day. She reports she also takes some Symbicort, but did not do so this morning. She reports that she has seen Dr. Palacios for the last 37 years and she called to talk to Dr. Harvey, who is on-call and he recommended that she come to the emergency room for evaluation. While in the emergency room, her chest x-ray demonstrated bibasilar infiltrates, also showed some cavitation in the left lower lobe. Correlation made with the PET imaging, 12/28/2018, which demonstrated multiple cavitations in the lung parenchyma. Lab work with a white blood cell count of 12.5, hemoglobin 12.2, hematocrit 34.9, and platelet count 211. Sodium 135, BUN 51, creatinine is 1.39 , glucose 112, lactic acid initially was 2.7 and subsequently was 3.1; AST 35, alkaline phosphatase 136. Urine with protein, trace blood, was negative for bacteria or leukocyte esterase or nitrites. In the emergency room, she was given vancomycin, a liter of fluid, and cefepime along with the DuoNeb treatment. She will be admitted to the telemetry unit for further management with antibiotic and treatment. REVIEW OF SYSTEMS: Reports fever. Reports intermittent chest pain. Reports cough, shortness of breath. Reports some nausea, vomiting, and diarrhea. Reports headache. Denies any dysuria. All systems are reviewed and are negative unless mentioned in the HPI or above. PAST MEDICAL HISTORY: Has Sjogren disease, osteoporosis, hypothyroidism, mitral valve prolapse, hiatal hernia, vasculitis, duodenal ulcer, and gastric polyps. PAST SURGICAL HISTORY: Hysterectomy, oophorectomy, breast biopsy x2, appendectomy, and cataract surgery bilaterally. PSYCHIATRIC HISTORY: None. SOCIAL HISTORY: Denies any alcohol or drug use. Has no smoking history. ALLERGIES: SHE HAS A VERY LONG LIST OF ALLERGIES; 1. AMOXICILLIN. 2. ASPIRIN. 3. BETADINE. 4. CODEINE. 5. DARVON. 6. PRILOSEC. 7. PEPCID. 8. HYDROCODONE. 9. IBUPROFEN. 10. INDOCIN. 11. IODINE. 12. KETOROLAC. 13. LACTOSE. 14. MACRODANTIN. 15. MORPHINE. 16. NAPROXEN. 17. NEXIUM. 18. OXYCODONE. 19. PENICILLIN. 20. AZO-STANDARD. 21. PROPRANOLOL. 22. PROPOXYPHENE. 23. BACTRIM. 24. SOAP. 25. SULFA. 26. TETRACYCLINE. 27. TRAMADOL. 28. TRIMETHOPRIM. 29. VERAPAMIL. CURRENT MEDICATIONS: 1. Tylenol 325 mg p.o. as needed. 2. Ascorbic acid 500 mg p.o. daily. 3. Aspirin 81 mg p.o. daily. 4. B vitamin 1 tab p.o. daily. 5. Vitamin D3, 25 mcg p.o. daily. 6. Vitamin B12, 1000 mcg p.o. daily. 7. Lomotil one tablet p.o. p.r.n. 8. Flaxseed 1000 mg p.o. daily. 9. Lactobacillus one capsule p.o. daily. 10. Xyzal 5 mg p.o. daily. 11. Levothyroxine 50 mcg p.o. daily. 12. Magnesium 250 mg p.o. daily. 13. Multivitamin one tablet p.o. daily. 14. Protonix 40 mg p.o. daily. 15. Evista 60 mg p.o. daily. 16. Nasacort 2 sprays nasally daily. 17. Vitamin E 400 units p.o. daily. PHYSICAL EXAMINATION: VITAL SIGNS: Blood pressure 113/57, pulse is 104, respiratory rate is 23, temp is 99.3, pO2 sats are 97% on 2 L. CONSTITUTIONAL: She is alert and oriented to person and place, is in no apparent distress. Initially during exam, when she was first woken up, she was not sure where she was, but after a few minutes of conversation, she was able to give a thorough history and was alert and oriented. HEENT: Head is atraumatic and normocephalic. Eyes; pupils equal, round, and reactive to light. Eyelids are normal to inspection. ENT; mouth exam is normal. Mucous membranes are moist. NECK: Normal range of motion. Trachea is midline. RESPIRATORY/CHEST: Diffuse rales to posterior lungs at the bases. No wheezing. Chest movement was symmetrical. Chest expansion was equal. CARDIOVASCULAR: Regular rate and rhythm. Heart sounds are normal. ABDOMEN: Nontender. Bowel sounds are heard. No tenderness on palpation. BACK: Normal range of motion. No tenderness. EXTREMITIES: Upper extremity, normal range of motion. Motor strength is normal. Radial pulses are normal. Lower extremity, normal range of motion. Motor strength is normal. Pedal pulses are normal. NEUROLOGIC: The patient is oriented to person, place, and time once she was able to wake up from napping. Speech was normal. There was no focal motor or sensory deficits noted. SKIN: Warm and dry, normal in color. PSYCH: She was oriented to person, eventually to place. She had a normal affect. DIAGNOSTIC DATA: EKG in the emergency room shows sinus tach, beats per minute of 109. T-waves were normal. Tatum is left. Possible left atrial enlargement. PLAN AND ASSESSMENT: 1. Bilateral lower pneumonia. The patient was given cefepime and vancomycin in the emergency room. We will continue the cefepime. We will change to Levaquin for antibiotics. Dr. Harvey from Pulmonology has been consulted. We will also order some DuoNeb scheduled. NS at 75 mL per hour. Blood cultures have been drawn. Respiratory viral panel has also been ordered. Urine culture has also been ordered. We will repeat labs in a.m. 2. History of COPD. See #1 3. History of hypothyroidism. We will continue her home medications. 4. Gastrointestinal and deep venous thrombosis prophylaxis has been started. 5. Case discussed with Dr. Garcia, who agrees with plan. 6. Hospital course dependent on clinical findings. Job ID: [id number] [facility]
[2019-09-09 00:26] VITALS: BMI 16.9
[2019-09-09] MEDS ORDERED: MEROPENEM 1 GM/50 ML 1 GM in Premix Bag 1 BAG IVPB SCH (01:15)
[2019-09-09 04:40] LABS: Lactic Acid 1.5 mmol/L (0.5-2.2)
[2019-09-09 04:49] LABS: ALT (SGPT) 20 U/L (8-55); AST (SGOT) 32 U/L (5-34); Albumin 2.4 g/dL (3.4-4.8); Alkaline Phosphatase 110 U/L (40-110); Anion Gap 11 mmol/L (10-20); BUN (Urea Nitrogen) 39 mg/dL (9.8-20.1); Bilirubin, Total 1.1 mg/dL (0.2-1.2); Calc. Creatinine Clearance 20 mL/min (70-130); Calcium 7.5 mg/dL (7.8-10.44); Carbon Dioxide 21 mmol/L (23-31); Chloride 106 mmol/L (98-107); Estimated GFR-MDRD 45; Globulin 3.7 g/dL (2.4-3.5); Glucose 89 mg/dL (83-110); Magnesium 2.1 mg/dL (1.6-2.6); Potassium 3.1 mmol/L (3.5-5.1); Protein, Total 6.1 g/dL (6.0-8.3); Sodium 135 mmol/L (136-145)
[2019-09-09 04:50] LABS: Phosphorus 1.8 mg/dL (2.3-4.7)
[2019-09-09] MEDS ORDERED: Potassium Phosphate 15 MMOL in Sodium Chloride 0.9% 250 ML 250 ML IVPB SCH (05:00)
[2019-09-09 05:22] LABS: Mean Corpuscular Volume 92.9 fL (78.0-98.0)
[2019-09-09] MEDS: Levothyroxine Sodium 50 MCG TAB PO SCH (05:45)
[2019-09-09 06:11] LABS: Hemoglobin 10.1 g/dL (12.0-16.0); Mean Corpuscular HGB CONC 34.2 g/dL (32.0-36.0); Mean Corpuscular Hemoglobin 31.8 pg (27.0-31.0); Mean Platelet Volume 8.7 fL (7.4-10.4); Platelet Count 204 thou/uL (130-400); RBC Distribution Width 12.1 % (11.5-14.5); Red Blood Cell (RBC) Count 3.16 mill/uL (4.20-5.40); White Blood Cell (WBC) Count 11.6 thou/uL (4.8-10.8)
[2019-09-09 06:41] LABS: Band 36 % (5-11); Lymphocytes 9 % (21-51); MDiff Complete? YES; Monocytes 3 % (0-10); Neutrophil 52 % (42-75)
[2019-09-09] MEDS ORDERED: Potassium Chloride 40 MEQ in Premix Bag 1 BAG IVPB SCH (07:30)
[2019-09-09] MEDS ORDERED: Sodium Phosphate 30 MMOL in Sodium Chloride 0.9% 250 ML 250 ML IVPB SCH (07:30)
[2019-09-09] MEDS ORDERED: Azithromycin 500 MG in Sodium Chloride 0.9% 250 ML 250 ML IVPB SCH ×2 (08:00→17:00)
[2019-09-09] MEDS: Budesonide 0.5 MG/2 ML NEB INH SCH ×2 (08:25→18:44)
[2019-09-09] MEDS: Fluticasone Propionate Nasal Spray 16 gm Bottle NASAL SCH (08:57)
[2019-09-09] MEDS: Multivit, Therapeutic 1 TAB PO SCH (08:57)
[2019-09-09] MEDS: Aspirin Chewable 81 MG TAB PO SCH (08:57)
[2019-09-09] MEDS: Cyanocobalamin (Vitamin B-12) 1,000 MCG TAB PO SCH (08:57)
[2019-09-09] MEDS: Saccharomyces boulardii 250 MG CAP PO SCH (08:57)
[2019-09-09] MEDS ORDERED: Levothyroxine Sodium 50 MCG TAB PO SCH (09:00)
[2019-09-09] MEDS: Cefepime 2 GM in Sodium Chloride 0.9% 100 ML IVPB SCH ×2 (09:56→16:25)
[2019-09-09 10:26] LABS: Legionella Urinary Ag Negative (Negative); Strep pneumo Urine Ag NEGATIVE (NEGATIVE)
[2019-09-09] MEDS: Potassium Chloride 20 MEQ in Premix Bag 1 BAG IVPB SCH ×2 (11:46→14:32)
[2019-09-09] MEDS ORDERED: Meropenem 500 MG in Sodium Chloride 0.9% 100 ML IVPB SCH (12:00)
[2019-09-09] MEDS ORDERED: Potassium Chloride 20 MEQ TAB PO SCH (13:45)
[2019-09-09] MEDS: Acetaminophen 325 MG TAB PO PRN (13:48)
[2019-09-09] MEDS ORDERED: Cefepime 1 GM in Sodium Chloride 0.9% 100 ML IVPB SCH (18:00)
--- NOTE | 2019-09-09 18:40 | PDOC.HOSPP ---
- Subjective Encounter Date: 09/09/19 Encounter Time: 10:00 Subjective: no overnight events. THis morning, feeling much improved. Complains of improving dry cough but otherwise no complaints. - Objective Vital Signs & Weight: Vital Signs (12 hours) Temp Pulse Resp BP Pulse Ox 09/09/19 15:43 99 F 105 H 18 82/44 L 94 L 09/09/19 15:30 114 H 24 H 09/09/19 12:20 98 16 09/09/19 11:01 98.8 F 98 18 101/59 L 93 L 09/09/19 08:25 112 H 16 09/09/19 07:25 98.2 F 95 18 122/59 L 98 Weight Weight 84 lb I&O: 09/08/19 09/09/19 09/10/19 06:59 06:59 06:59 Intake Total 1110 Output Total 200 Balance 910 Result Diagrams: 09/09/19 04:01 09/09/19 04:01 Radiology Reviewed by me: Yes Hospitalist ROS - Review of Systems Constitutional: denies: fever, chills, sweats, weakness, malaise, other Respiratory: reports: cough, dry. denies: shortness of breath, hemoptysis, SOB with excertion, pleuritic pain, sputum, wheezing Cardiovascular: denies: chest pain, palpitations, orthopnea, paroxysmal noc. dyspnea, edema, light headedness, other Genitourinary: denies: dysuria, frequency, incontinence, hematuria, retention, other Neurological: denies: weakness, numbness, incoordination, change in speech, confusion, seizures, other - Medication Medications: Active Medications Generic Name Dose Route Start Last Admin Trade Name Freq PRN Reason Stop Dose Admin Acetaminophen 650 mg 09/08/19 20:24 09/09/19 13:48 Tylenol PO 650 mg Q4H PRN Administration Headache/Fever/Mild Pain (1-3) Albuterol/Ipratropium 3 ml 09/08/19 22:30 09/09/19 15:30 Duoneb NEB 3 ml [id number] LIV Administration Aspirin 81 mg 09/09/19 09:00 09/09/19 08:57 Aspirin Chewable PO 81 mg DAILY LIV Administration Budesonide 0.5 mg 09/09/19 06:30 09/09/19 08:25 Pulmicort Neb Solution INH 0.5 mg BID-RT LIV Administration Cyanocobalamin 1,000 mcg 09/09/19 09:00 09/09/19 08:57 Vitamin B-12 PO 1,000 mcg DAILY LIV Administration Fluticasone Propionate 0 gm 09/09/19 09:00 09/09/19 08:57 Flonase Nasal [place] NASAL 1 spr DAILY LIV Administration Cefepime HCl 2 gm/ Sodium 100 mls @ 200 mls/hr 09/09/19 09:00 09/09/19 16:25 Chloride IVPB 100 mls Q8H LIV Administration Azithromycin 500 mg/ Sodium 250 mls @ 250 mls/hr 09/09/19 17:00 09/09/19 17: 30 Chloride IVPB 250 mls Q24HR LIV Administration Levothyroxine Sodium 50 mcg 09/09/19 06:00 09/09/19 05:45 Synthroid PO 50 mcg 0600 LIV Administration Multivitamins 1 tab 09/09/19 09:00 09/09/19 08:57 Theragran PO 1 tab DAILY LIV Administration Pantoprazole Sodium 40 mg 09/09/19 09:00 09/09/19 08:57 Protonix PO 40 mg DAILY LIV Administration Raloxifene HCl 60 mg 09/09/19 09:00 09/09/19 08:57 Evista PO 60 mg DAILY LIV Administration Saccharomyces Boulardii 250 mg 09/09/19 09:00 09/09/19 08:57 Florastor PO 250 mg DAILY LIV Administration - Exam General Appearance: NAD, awake alert Eye: PERRL, anicteric sclera ENT: normocephalic atraumatic Neck: no JVD Heart: no murmur, no gallops, no rubs, normal peripheral pulses Heart - other findings: regular rhythm, tachycardic Respiratory: no wheezes, no ronchi, normal chest expansion, no tachypnea Respiratory - other findings: b/l inspiratory crackles to midlevel Gastrointestinal: soft, non-tender, non-distended, normal bowel sounds, no palpable masses, no hepatomegaly, no splenomegaly, no bruit Extremities: 1+ LE edema Extremities - other findings: b/l LE edema to midtibial level Neurological: cranial nerve grossly intact, normal sensation to touch, no weakness, no focal deficits, no new deficit Psychiatric: normal affect, normal behavior, A&O x 3 Hosp A/P - Plan #cap will continue vanc, cefepime, azithromycin pending workup #contraction alkalosis #prerenal ARNOLDO -will continue IVF and electrolyte corrections #dispo/PPX code: full code GI PPX: pantoprazole DVT PPX: SCDs
--- NOTE | 2019-09-09 18:42 | CON ---
DATE OF CONSULTATION: HISTORY OF PRESENT ILLNESS: Ms. Bonds is an 89-year-old female familiar to myself and Dr. Palacios. She is primarily cared for by Dr. Palacios. She presented yesterday with febrile illness associated with nausea, vomiting, and diarrhea for several days. Temperature has been up to 103. She also had some cough. It is reported in the admission history and physical that I talked to her yesterday. This is not true. She subsequently presented to the emergency room, was evaluated by the ER physician and admitted. She says she is feeling better. She is no longer nauseated. PAST MEDICAL HISTORY: Remarkable for: 1. Chronic obstructive pulmonary disease followed by Dr. Palacios for almost 40 years. 2. Sjogren disease. 3. Osteoporosis. 4. Hypothyroidism. 5. History of hiatal hernia. 6. History of duodenal ulcer. 7. History of gastric polyps. 8. History of aspiration pneumonia in November of 2017. FAMILY HISTORY: Negative for lung disease in early age. ALLERGIES: SHE HAS A LARGE HISTORY OF DRUG ALLERGIES. SOCIAL HISTORY: Nonsmoker and nondrinker. REVIEW OF SYSTEMS: Ten points otherwise negative. PHYSICAL EXAMINATION: GENERAL: She is in no distress. VITAL SIGNS: Heart rate is 98. She is afebrile. Respiratory rates in the teens, oximetry is 93% on 2 L, and blood pressure 101/59. HEENT: Pupils react. Sclerae are anicteric. NECK: Supple. No lymphadenopathy. LUNGS: Free of wheezes. HEART: Regular rhythm. S1 and S2 are normal. ABDOMEN: Soft and nontender. EXTREMITIES: Without clubbing, cyanosis, or edema. LABORATORY DATA: Chest x-rays shows questionable haziness in both lung bases. White count 11.6, hemoglobin 10.1, platelets 204,000. Sodium 135, potassium 3.1, chloride 106, bicarb 29, BUN 39, and creatinine 1.15. Urine cultures negative. Blood cultures are negative. Flu swab was negative. IMPRESSION: Viral gastroenteritis with possible coexistent pneumonia. PLAN: Continue antimicrobial therapy, steroids, and nebulizer treatments. Physical therapy and IV hydration. Antibiotics can probably be simplified in the morning. TIME SPENT: A 50-minute consult, 50% of the time was spent on the unit coordinating care. Job ID: [id number]
[2019-09-09 19:39] LABS: Vancomycin, Random 8.6 ug/mL (See Comment)
[2019-09-09] MEDS ORDERED: Vancomycin HCl 500 MG in Sodium Chloride 0.9% 100 ML IVPB SCH (21:00)
[2019-09-10] MEDS: Cefepime 2 GM in Sodium Chloride 0.9% 100 ML IVPB SCH ×2 (00:58→09:03)
[2019-09-10] MEDS: Acetaminophen 325 MG TAB PO PRN (03:37)
[2019-09-10 04:51] LABS: Albumin 2.6 g/dL (3.4-4.8); Anion Gap 11 mmol/L (10-20); BUN (Urea Nitrogen) 30 mg/dL (9.8-20.1); BUN/Creatinine Ratio 31.91; Calc. Creatinine Clearance 25 mL/min (70-130); Calcium 8.2 mg/dL (7.8-10.44); Carbon Dioxide 21 mmol/L (23-31); Chloride 110 mmol/L (98-107); Estimated GFR-MDRD 56; Glucose 117 mg/dL (83-110); Magnesium 2.1 mg/dL (1.6-2.6); Phosphorus 2.3 mg/dL (2.3-4.7); Sodium 139 mmol/L (136-145)
[2019-09-10 05:37] LABS: Hemoglobin 10.9 g/dL (12.0-16.0); Mean Corpuscular HGB CONC 34.7 g/dL (32.0-36.0); Mean Corpuscular Hemoglobin 32.1 pg (27.0-31.0); Mean Corpuscular Volume 92.4 fL (78.0-98.0); Mean Platelet Volume 8.3 fL (7.4-10.4); Platelet Count 243 thou/uL (130-400); RBC Distribution Width 12.2 % (11.5-14.5); Red Blood Cell (RBC) Count 3.39 mill/uL (4.20-5.40); White Blood Cell (WBC) Count 15.3 thou/uL (4.8-10.8)
[2019-09-10 05:57] LABS: Band 32 % (5-11); Lymphocytes 4 % (21-51); MDiff Complete? YES; Monocytes 4 % (0-10); Neutrophil 60 % (42-75)
[2019-09-10] MEDS: Budesonide 0.5 MG/2 ML NEB INH SCH ×2 (06:46→18:49)
[2019-09-10] MEDS: Vancomycin HCl 1 GM in Premix Bag 1 BAG IVPB SCH ×2 (06:51→06:52)
[2019-09-10] MEDS: Aspirin Chewable 81 MG TAB PO SCH (09:03)
[2019-09-10] MEDS: Cyanocobalamin (Vitamin B-12) 1,000 MCG TAB PO SCH (09:03)
[2019-09-10] MEDS: Multivit, Therapeutic 1 TAB PO SCH (09:03)
[2019-09-10] MEDS: Saccharomyces boulardii 250 MG CAP PO SCH (09:03)
[2019-09-10] MEDS: Fluticasone Propionate Nasal Spray 16 gm Bottle NASAL SCH (09:03)
[2019-09-10] MEDS ORDERED: predniSONE 20 MG TAB PO SCH (12:00)
[2019-09-10] MEDS: Potassium Chloride 20 MEQ TAB PO SCH ×2 (12:08→16:32)
[2019-09-10] MEDS: Levothyroxine Sodium 50 MCG TAB PO SCH (12:30)
--- NOTE | 2019-09-10 12:33 | PRG ---
DATE OF SERVICE: 09/10/2019 SUBJECTIVE: An 89-year-old female. This morning, she says she is feeling better, less coughing, less shortness of breath. She had nausea and vomiting for several days. I think, she might aspirated following the profuse vomiting. OBJECTIVE: VITAL SIGNS: Temperature 98, pulse 99, respiratory rate 18, saturations 96 on 2 L, blood pressure 112/55. CHEST: Bilateral rhonchi and crackles. CARDIAC: Normal S1 and S2. No gallops. ABDOMEN: No masses. LABORATORY DATA: Her lytes are normal. Potassium is 3. White count 15,000. Flu was negative. IMPRESSION: 1. Recurrent aspiration secondary to nausea and vomiting, chronic bronchitis and bronchiectasis. 2. Dysphagia, on a pureed diet. 3. Baseline underlying Sjogren syndrome. PLAN: Clinically, she appears to have improved. Chest x-ray shows the chronic extensive bilateral scarring. I am not so sure if there are any new infiltrates. So far, all cultures are negative. We will follow. Deescalate antibiotics. Job ID: [id number]
--- NOTE | 2019-09-10 14:16 | PQF ---
CLINICAL DOCUMENTATION IMPROVEMENT CLARIFICATION FORM: ICD-10 Updated PLEASE DO AN ADDENDUM TO THE PROGRESS NOTE WITH ANY DOCUMENTATION UPDATES OR ADDITIONS AND CARRY THROUGH TO DC SUMMARY. THANK YOU. DATE: 09/10/19 ATTN: DR. TINSLEY Please exercise your independent, professional judgment in responding to the clarification form. Clinical indicators are provided on the bottom of this form for your review Please check appropriate box(es): [ x ] Sepsis due to: (Pna, UTI, gangrenous gall bladder, etc.) Pna [ ] SIRS due to non-infectious process (please specify etiology) [ ] with organ dysfunction [ ] without organ dysfunction [ ] Severe sepsis with acute organ dysfunction of: (Examples: respiratory failure, encephalopathy , acute kidney failure, other) [ ] Localized infection without sepsis [ ] Other diagnosis [ ] Unable to determine In addition, please specify: Present on Admission (POA): [ ] Yes [ ] No [ ] Unable to determine For continuity of documentation, please document condition throughout progress notes and discharge summary. Thank You. CLINICAL INDICATORS - SIGNS / SYMPTOMS / LABS / RESULTS AND LOCATION IN MR ER NOTE: "SEVERE SEPSIS" PULSE 115 RR 23 87% ROOM AIR WBC 09/08: 12.5 WBC 09/10: 15.3 BANDS 09/08: 36 LACTIC ACID 09/08: 3.1 RISKS: BILATERAL LOWER PNEUMONIA (H&P 09/09) H/O COPD (H&P 09/09) TREATMENT: IV VANCOMYCIN (ER-09/09) IV FLUIDS (ER) IV CEFEPIME (ER-09/09) OMNICEF (09/10-09/17) ZITHROMAX (09/11-09/14) BLOOD AND URINE CULTURES (09/08) (This form is maintained as a part of the permanent medical record) 2014 [email or web address]. All Rights Reserved GLENDA [email or web address] Office: [phone] [facility] CENTEREmily
--- NOTE | 2019-09-10 14:27 | PQF ---
CLINICAL DOCUMENTATION IMPROVEMENT CLARIFICATION FORM: ICD-10 Updated PLEASE DO AN ADDENDUM TO THE PROGRESS NOTE WITH ANY DOCUMENTATION UPDATES OR ADDITIONS AND CARRY THROUGH TO DC SUMMARY. THANK YOU. DATE: 09/10/19 ATTN: DR. TINSLEY Please exercise your independent, professional judgment in responding to the clarification form. Clinical indicators are provided on the bottom of this form for your review Please check appropriate box(s): [ ] Aspiration Pneumonia [ ] Empirically treating Gram Negative Pneumonia [ ] Empirically treating Anaerobic Pneumonia [ x ] Pneumonia secondary to (specify organism / underlying disease) viral pneumonia [ ] Simple Pneumonia [ ] Other diagnosis [ ] Unable to determine In addition, please specify: Present on Admission (POA): [ x ] Yes [ ] No [ ] Unable to determine For continuity of documentation, please document condition throughout progress notes and discharge summary. Thank You. CLINICAL INDICATORS - SIGNS / SYMPTOMS / LABS / RESULTS AND LOCATION IN MR H&P 09/09: "BILATERAL LOWER PNEUMONIA" PROGRESS NOTE (HOSPITALIST): 09/09: "CAP" PROGRESS NOTE (PULMONARY) 09/10: "RECURRENT ASPIRATION" WBC 09/08: 12.5 WBC 09/10: 15.3 BANDS : 36 PULSE 09/08-09/10: 105 - 130 RISKS: NAUSEA AND VOMITING FOR SEVERAL DAYS (CONSULTATION NOTE 09/09) H/O COPD (CONSULTATION NOTE 09/09) TREATMENT: IV VANCOMYCIN (ER-09/09) IV FLUIDS (ER) IV CEFEPIME (ER-09/09) OMNICEF (09/10-09/17) ZITHROMAX (09/11-09/14) PULMONARY CONSULT (This form is maintained as a part of the permanent medical record) 2014 [employer]. All Rights Reserved GLENDA [email or web address] Office: [phone] [facility]ITALEmily
--- NOTE | 2019-09-10 15:59 | PDOC.HOSPP ---
- Subjective Encounter Date: 09/10/19 Encounter Time: 08:00 Subjective: no overnight events. This morning feeling much better. no more diarrheal episodes, ambulates without issues. Continues to have cough with sputum production. otherwise no complaints. - Objective Vital Signs & Weight: Vital Signs (12 hours) Temp Pulse Resp BP Pulse Ox 09/10/19 15:21 97.8 F 98 18 104/51 L 98 09/10/19 15:19 99 16 09/10/19 11:12 98.1 F 99 18 112/55 L 97 09/10/19 10:28 95 13 09/10/19 07:04 98.3 F 117 H 20 123/62 95 09/10/19 06:47 89 L 09/10/19 06:46 116 H 18 Weight Admit Weight 84 lb Weight 84 lb I&O: 09/09/19 09/10/19 09/11/19 06:59 06:59 06:59 Intake Total 1110 Output Total 200 300 Balance 910 -300 Result Diagrams: 09/10/19 04:01 09/10/19 04:01 Hospitalist ROS - Review of Systems Constitutional: denies: fever, chills, sweats, weakness, malaise, other Respiratory: reports: cough, sputum. denies: dry, shortness of breath, hemoptysis, SOB with excertion, pleuritic pain, wheezing, other Cardiovascular: denies: chest pain, palpitations, orthopnea, paroxysmal noc. dyspnea, edema, light headedness, other Gastrointestinal: denies: nausea, vomiting, abdominal pain, diarrhea, constipation, melena, hematochezia, other Genitourinary: denies: dysuria, frequency, incontinence, hematuria, retention, other Neurological: reports: weakness. denies: numbness, incoordination, change in speech, confusion - Medication Medications: Active Medications Generic Name Dose Route Start Last Admin Trade Name Freq PRN Reason Stop Dose Admin Acetaminophen 650 mg 09/08/19 20:24 09/10/19 03:37 Tylenol PO 650 mg Q4H PRN Administration Headache/Fever/Mild Pain (1-3) Albuterol/Ipratropium 3 ml 09/08/19 22:30 09/10/19 15:19 Duoneb NEB 3 ml [id number] LIV Administration Aspirin 81 mg 09/09/19 09:00 09/10/19 09:03 Aspirin Chewable PO 81 mg DAILY LIV Administration Budesonide 0.5 mg 09/09/19 06:30 09/10/19 06:46 Pulmicort Neb Solution INH 0.5 mg BID-RT LIV Administration Cyanocobalamin 1,000 mcg 09/09/19 09:00 09/10/19 09:03 Vitamin B-12 PO 1,000 mcg DAILY LIV Administration Fluticasone Propionate 0 gm 09/09/19 09:00 09/10/19 09:03 Flonase Nasal [place] NASAL 1 spr DAILY LIV Administration Levothyroxine Sodium 50 mcg 09/09/19 06:00 09/10/19 12:30 Synthroid PO Not Given 0600 [facility]ENDING [facility] TO [facility] Multivitamins 1 tab 09/09/19 09:00 09/10/19 09:03 Theragran PO 1 tab DAILY LIV Administration Pantoprazole Sodium 40 mg 09/09/19 09:00 09/10/19 09:03 Protonix PO 40 mg DAILY LIV Administration Potassium Chloride 40 meq 09/10/19 13:00 09/10/19 12:08 K-Dur PO 09/10/19 17:01 40 meq Q4HR LIV Administration Raloxifene HCl 60 mg 09/09/19 09:00 09/10/19 09:03 Evista PO 60 mg DAILY LIV Administration Saccharomyces Boulardii 250 mg 09/09/19 09:00 09/10/19 09:03 Florastor PO 250 mg DAILY LIV Administration - Exam General Appearance: NAD, awake alert ENT: normocephalic atraumatic Neck: supple, symmetric, no JVD Heart: RRR, no murmur, no gallops, no rubs (.) Respiratory: CTAB, no wheezes, no rales, no ronchi Gastrointestinal: soft, non-tender, non-distended, normal bowel sounds Extremities: no edema Neurological: cranial nerve grossly intact, no focal deficits Musculoskeletal: normal tone, normal strength Psychiatric: normal affect, normal behavior, A&O x 3 Hosp A/P - Plan #viral syndrome (gastroenteritis, CAP) #COPD exacerbation infectious workup negative symptoms c/w viral syndrome CXR unchanged from 06/2019 remains week, productive sputum #prerenal ARNOLDO (resolved) -will continue IVF and electrolyte corrections Plan: -will continue to follow; pending DC tomorrow #dispo/PPX code: full code GI PPX: pantoprazole DVT PPX: SCDs
[2019-09-10] MEDS: Cefdinir 300 MG CAP PO SCH (20:41)
[2019-09-11] MEDS: Levothyroxine Sodium 50 MCG TAB PO SCH (00:47)
[2019-09-11 05:30] LABS: Anion Gap 10 mmol/L (10-20); BUN (Urea Nitrogen) 33 mg/dL (9.8-20.1); Calc. Creatinine Clearance 28 mL/min (70-130); Calcium 9.3 mg/dL (7.8-10.44); Carbon Dioxide 23 mmol/L (23-31); Chloride 111 mmol/L (98-107); Estimated GFR-MDRD 65; Glucose 126 mg/dL (83-110); Magnesium 2.3 mg/dL (1.6-2.6); Potassium 4.8 mmol/L (3.5-5.1); Sodium 139 mmol/L (136-145)
[2019-09-11 06:49] LABS: Hemoglobin 10.2 g/dL (12.0-16.0); Mean Corpuscular HGB CONC 33.5 g/dL (32.0-36.0); Mean Corpuscular Hemoglobin 31.2 pg (27.0-31.0); Mean Corpuscular Volume 93.2 fL (78.0-98.0); Mean Platelet Volume 8.3 fL (7.4-10.4); Platelet Count 288 thou/uL (130-400); RBC Distribution Width 12.4 % (11.5-14.5); Red Blood Cell (RBC) Count 3.28 mill/uL (4.20-5.40); White Blood Cell (WBC) Count 17.9 thou/uL (4.8-10.8)
[2019-09-11 06:56] LABS: Band 36 % (5-11); Lymphocytes 2 % (21-51); MDiff Complete? YES; Monocytes 1 % (0-10); Neutrophil 61 % (42-75)
[2019-09-11] MEDS: Budesonide 0.5 MG/2 ML NEB INH SCH (07:00)
[2019-09-11] MEDS ORDERED: predniSONE 20 MG TAB PO SCH ×3 (08:00)
[2019-09-11] MEDS: Aspirin Chewable 81 MG TAB PO SCH (08:41)
[2019-09-11] MEDS: Cyanocobalamin (Vitamin B-12) 1,000 MCG TAB PO SCH (08:41)
[2019-09-11] MEDS: Cefdinir 300 MG CAP PO SCH (08:41)
[2019-09-11] MEDS: Multivit, Therapeutic 1 TAB PO SCH (08:41)
[2019-09-11] MEDS: Saccharomyces boulardii 250 MG CAP PO SCH (08:42)
[2019-09-11] MEDS: Fluticasone Propionate Nasal Spray 16 gm Bottle NASAL SCH (08:45)
[2019-09-11] MEDS ORDERED: Azithromycin 250 MG TAB PO SCH (09:00)
--- NOTE | 2019-09-11 10:21 | PRG ---
DATE OF SERVICE: 09/11/2019 SUBJECTIVE: This morning she is better. She is less short of breath, less cough. OBJECTIVE: VITAL SIGNS: Temperature 98, pulse 101, sats 97 on 2L, and blood pressure 94/59. CHEST: Reveals no wheezing, crackles. CARDIAC: Normal S1, S2. No gallops. ABDOMEN: No masses. LABORATORY DATA: White count [id number]. Lytes are normal. ASSESSMENT: Chronic bronchitis, bronchiectasis, baseline Sjogren's syndrome, recent febrile illness, pneumonia. PLAN: She can be discharged home on tapering dose of prednisone for a week, for a week. Job ID: [id number]
[2019-09-11 11:22] VITALS: BP 108/58; TEMP 98.1
--- NOTE | 2019-09-12 11:41 | DIS ---
DATE OF ADMISSION: 09/08/2019 DATE OF DISCHARGE: 09/11/2019 HOSPITAL COURSE: Ms. Bonds is an 89-year-old female with a medical history of Sjogren disease, osteoporosis, hypothyroidism, mitral valve prolapse, hiatal hernia, vasculitis, duodenal ulcer and gastric polyps, who was brought to the emergency room for fevers as high as 103, nausea, vomiting, diarrhea, and bilateral eye redness and discharge. She was diagnosed with viral syndrome and community-acquired pneumonia resulting in COPD exacerbation. She was treated with antibiotics and steroids as well as supportively and significantly improved over her inpatient stay. Infectious workup was negative, and chest x-ray did not show any acute findings. In addition to that, she presented with prerenal ARNOLDO that improved that resolved with supplemented IV fluids. She was discharged home with supply of azithromycin as well as prednisone to complete treatment of seven days. She was hemodynamically stable and feeling at baseline on the day of discharge. Vitals were unremarkable. PHYSICAL EXAMINATION: GENERAL: She was in no apparent distress. Alert and oriented x3. Emaciated. HEART: Regular rate and rhythm. No murmur. No gallops. No rubs. RESPIRATORY: Clear to auscultation bilaterally. No wheezes, no rales, no rhonchi. GI: Soft, nontender, nondistended. Normal bowel sounds. EXTREMITIES: No edema. NEUROLOGIC: Cranial nerves grossly intact. No focal deficits. MUSCULOSKELETAL: Normal tone. Normal strength. PSYCHIATRIC: Normal affect. Normal behavior. Alert and oriented x3. ASSESSMENT AND PLAN: Ms. Bonds is an 89-year-old female who presented with viral syndrome and viral pneumonia resulting in chronic obstructive pulmonary disease exacerbation. She was treated with respiratory treatments, steroids, and antibiotics and promptly improved. She was discharged home with elaborate education regarding avoiding significant exertion over the next week at least as well as education regarding her medications. She was set up with appointments with her primary care physician as well as the equipment oiler, who saw her as an inpatient. Job ID: [id number]
== END 2019-09-11 15:33 | disposition home or self-care (01) | DRG 871 ==
LOC: ERS 17:21 → 2NO 19:16
PROVIDERS: ADMIT Internal Medicine; ATTEND Internal Medicine
DX: A41.89 Other specified sepsis (principal); J12.9 Viral pneumonia, unspecified; J44.0 Chronic obstructive pulmonary disease with (acute) lower respiratory infection; N17.9 Acute kidney failure, unspecified; E87.3 Alkalosis; J44.1 Chronic obstructive pulmonary disease with (acute) exacerbation; M35.00 Sjogren syndrome, unspecified; M81.0 Age-related osteoporosis without current pathological fracture; E03.9 Hypothyroidism, unspecified; R65.20 Severe sepsis without septic shock; N18.2 Chronic kidney disease, stage 2 (mild); A08.4 Viral intestinal infection, unspecified; Z87.11 Personal history of peptic ulcer disease; Z90.710 Acquired absence of both cervix and uterus; Z90.721 Acquired absence of ovaries, unilateral; Z88.1 Allergy status to other antibiotic agents; Z91.041 Radiographic dye allergy status; Z88.5 Allergy status to narcotic agent; Z91.013 Allergy to seafood; Z88.2 Allergy status to sulfonamides; Z91.048 Other nonmedicinal substance allergy status; Z79.899 Other long term (current) drug therapy; Z79.82 Long term (current) use of aspirin; Z79.890 Hormone replacement therapy; Z87.01 Personal history of pneumonia (recurrent)
CPT/HCPCS: 36415; 51701; 71045; 80048; 80053; 80069; 80202; 81003; 81015; 83605; 83735; 84100; 84145; 85025; 86140; 87040; 87086; 87449; 87633; 87804; 87899; 93005; 94640; 94760; 96365; 96367; A4353; J0456; J0692; J1956; J2185; J3370; J3480; J3490; J7050; J7512; J7620; J7626

== ENCOUNTER 2020-05-29 13:49 | Outpatient (CLI) | payer MEDICARE, BC, OTHER ==
--- NOTE | 2020-05-29 14:20 | MMO ---
Bilateral MAMMO Bilat Diag [facility]. CLINICAL HISTORY: Patient is 89 years old and is seen for diagnostic exam and pain in the right breast. The patient has no family history of breast cancer. The patient has a history of Skin cancer. The patient has a history of left Excisional Biopsy in 1958 - benign and left Excisional Biopsy in 1960 - benign. VIEWS: The views performed were: bilateral craniocaudal with tomosynthesis; bilateral mediolateral oblique with tomosynthesis; and bilateral mediolateral with tomosynthesis. FILMS COMPARED: The present examination has been compared to prior imaging studies performed at [facility] on 05/09/2018 and 05/10/2019. This study has been interpreted with the assistance of computer-aided detection. MAMMOGRAM FINDINGS: There are scattered fibroglandular densities. Finding 1: There are stable benign appearing calcifications seen in both breasts. Finding 2: There are no mammographic abnormalities to explain the patient's breast pain. The patient is referred back to her clinician. Negative imaging findings should not preclude biopsy if clinical findings are suspicious. There are no suspicious masses, suspicious calcifications, or new areas of architectural distortion. IMPRESSION: FINDING 2: THERE ARE NO MAMMOGRAPHIC ABNORMALITIES TO EXPLAIN THE PATIENT'S BREAST PAIN. THE PATIENT IS REFERRED BACK TO HER CLINICIAN. NEGATIVE IMAGING FINDINGS SHOULD NOT PRECLUDE BIOPSY IF CLINICAL FINDINGS ARE SUSPICIOUS. A ROUTINE FOLLOW-UP MAMMOGRAM IN 1 YEAR IS RECOMMENDED. THE RESULTS OF THIS EXAM WERE SENT TO THE PATIENT. ACR BI-RADS Category 2 - Benign finding MAMMOGRAPHY NOTE: 1. A negative mammogram report should not delay a biopsy if a dominant of clinically suspicious mass is present. 2. Approximately 10% to 15% of breast cancers are not detected by mammography. 3. Adenosis and dense breasts may obscure an underlying neoplasm. Reported by: NISHA KINSEY MD Electonically Signed: [id number]
== END 2020-05-29 13:50 | disposition home or self-care (01) ==
LOC: BICMAMMO 13:49
PROVIDERS: ATTEND Student in an Organized Health Care Education/Training Program
DX: N64.4 Mastodynia (principal)
CPT/HCPCS: 77066; G0279

== ENCOUNTER 2020-11-12 12:03 | Outpatient (CLI) | payer OTHER | END 2020-11-12 12:04 | disposition home or self-care (01) | LOC: DTY/OP 12:03 | PROVIDERS: ATTEND Internal Medicine | DX: E46 Unspecified protein-calorie malnutrition (principal) | CPT/HCPCS: 97802 ==

== ENCOUNTER 2020-11-19 13:14 | Outpatient (CLI) | payer MEDICARE, BC, OTHER ==
[2020-11-19 22:32] LABS: SARS-CoV-2 PCR by NAA Not Detected (NotDetected)
== END 2020-11-19 13:15 | disposition home or self-care (01) ==
LOC: LABBT 13:14
PROVIDERS: ATTEND Internal Medicine Gastroenterology
DX: Z01.812 Encounter for preprocedural laboratory examination (principal); R13.12 Dysphagia, oropharyngeal phase; Z20.822 Contact with and (suspected) exposure to COVID-19
CPT/HCPCS: U0003; U0005; 87635